=== PATIENT | female | born 1985 | race Two or more races ===

== ENCOUNTER 2023-06-09 14:42 | Outpatient (OUT) | payer BC, OTHER, SELFPAY ==
[2023-06-09 15:50] LABS: Alanine Aminotransferase 73 U/L (14-59); Albumin Globulin Ratio 0.6; Albumin Level 3.5 g/dL (3.4-5.0); Alkaline Phosphatase 181 U/L (46-116); Aspartate Amino Transferase 228 U/L (15-37); Bilirubin Direct 0.1 mg/dL (0.0-0.2); Bilirubin Total 0.4 mg/dL (0.2-1.0); Total Protein 9.5 g/dL (6.4-8.2)
[2023-06-10 06:11] LABS: Hepatitis B Surf Ab Quant 25.4 mIU/mL (Immunity>9.9)
[2023-06-12 13:13] LABS: Hepatitis C Genotype 3 (.)
[2023-06-12 15:13] LABS: Antinuclear Antibodies, IFA Positive (.)
== END 2023-06-09 14:43 | disposition home or self-care (01) ==
LOC: LAB 14:42
PROVIDERS: Visit Provider Nurse Practitioner
DX: B18.2 Chronic viral hepatitis C (principal)
CPT/HCPCS: 36415; 80076; 86038; 86706; 86803; 87522; 87902

== ENCOUNTER 2023-12-05 18:21 | Emergency (ER) | payer BC, OTHER, SELFPAY ==
[2023-12-05] VITALS (31 sets, daily range): BP systolic 97–141; BP diastolic 81–96; PULSE 69–117; RESP 12–31; TEMP 36.8; O2SAT 84–100; BMI 26.3
--- NOTE | 2023-12-05 18:34 | ECG_ITS ---
[facility] Test Date: 2023-12-05 Pat Name: BETSY FERRERA Department: Room: - Gender: Female Sld Educational Aide: : 1985 Requested By: ZACHARY OLSON Order Number: [id number] Reading MD: ZACHARY OLSON Measurements Intervals [place] Rate: 111 P: 81 MI: 134 QRS: 81 QRSD: 74 T: 55 QT: 342 QTc: 407 Interpretive Statements 1120 Sinus tachycardia 9140 abnormal rhythm ECG Compared to ECG 02/06/2018 04:43:05 Sinus rhythm no longer present Electronically Signed On 12-06-2023 6:40:20 EST by ZACHARY OLSON
--- NOTE | 2023-12-05 18:52 | ED_ITS ---
HPI - Abdominal Pain General Chief Complaint: Abdominal Pain Stated Complaint: Abdominal Pain Time Seen by Provider: 12/05/23 18:22 Source: patient Mode of arrival: walk-in History of Present Illness HPI narrative: Patient is a 38-year-old female who presents to the emergency department for the evaluation of diffuse upper abdominal pain for the last several days. She has a history of hep C. She states several months ago she was seen in this emergency department and diagnosed with questionable gallstones. She states she followed up and was told that she does not have gallstones and her pain was likely due to a flareup of her hepatitis C. She does not currently have a GI specialist or liver specialist and takes no medications for her hep C.She has not had any fevers, chills. She reports multiple episodes of vomiting and diarrhea over the last day. She states she believes that her pain begins in the left upper abdomen and radiates across the abdomen to the right upper quadrant. She does have associated back pain as well. She has hepatitis C from a history of IV drug use. Related Data Previous Rx's Medication Instructions Recorded hyoscyamine sulfate 0.125 mg 0.125 mg PO Q6H PRN abdominal pain 12/05/23 tablet (Levsin) #12 tabs ondansetron 4 mg disintegrating 4 mg PO Q6H PRN nausea and 12/05/23 tablet vomiting #12 tabs pantoprazole 40 mg tablet,delayed 40 mg PO DAILY #7 tabs 12/05/23 release (Protonix) sucralfate 1 gram tablet (Carafate) 1 g PO Q6H PRN abdominal pain #12 12/05/23 tabs Allergies Allergy/AdvReac Type Severity Reaction Status Date / Time No Known Drug Allergies Allergy Verified 12/05/23 18:30 Review of Systems ROS Constitutional Denies: fever or chills Ears, nose, mouth, and throat Denies: throat pain or nasal congestion Cardiovascular Denies: chest pain Respiratory Denies: shortness of breath or cough Gastrointestinal Reports: abdominal pain, nausea, vomiting and diarrhea Genitourinary Denies: painful urination Musculoskeletal Denies: back pain Integumentary/Breast Denies: rash Neurological Denies: headache Endocrine Denies: excessive urination Exam Narrative Exam Narrative: Gen.: Awake, alert, in no distress Head: Normocephalic, atraumatic ENT: Moist mucous membranes Respiratory: No respiratory distress, lungs clear bilaterally Cardio: Regular rate and rhythm Gastrointestinal: Abdomen is soft, Diffusely tender to palpation across the upper abdomen with no guarding or rebound Extremities: Moves extremities equally Psych: Normal mood and affect Neuro: No focal neuro deficit Skin: Warm, dry, intact Constitutional Vital Signs, click to edit/add: Last Vital Signs Temp 98.2 F 12/05/23 18:27 Pulse 73 12/05/23 23:01 Resp 17 12/05/23 23:01 BP 119/91 12/05/23 23:01 Pulse Ox 100 12/05/23 23:00 O2 Del Method Room Air 12/05/23 22:33 Course Vital Signs Vital signs: Vital Signs Temperature 98.2 F 12/05/23 18:27 Pulse Rate 117 H 12/05/23 18:27 Respiratory Rate 20 12/05/23 18:27 Blood Pressure 110/88 12/05/23 18:27 Pulse Oximetry 100 12/05/23 18:27 Oxygen Delivery Method Room Air 12/05/23 18:27 Temperature 98.2 F 12/05/23 18:27 Pulse Rate 73 12/05/23 23:01 Respiratory Rate 17 12/05/23 23:01 Blood Pressure 119/91 12/05/23 23:01 Pulse Oximetry 100 12/05/23 23:00 Oxygen Delivery Method Room Air 12/05/23 22:33 MDM - Abdominal Pain MDM Narrative Medical decision making narrative: Patient was a very difficult IV stick, labs and medication administration was delayed as a result. Patient found to have normal white blood cell count, normal bilirubin and lipase. LFTs have decreased from previous and are improved. Patient with no episodes of emesis in the ER and treated with IV fluids, Zofran, Levsin, Protonix. CT was performed without contrast due to size and position of IV Case turned over to attending physician at 2153. Medical Records Attestation: I reviewed the patient's medical records. Lab Data Attestation: I reviewed the patient's lab results. Labs: Lab Results 12/05/23 12/05/23 Range/Units 19:56 23:15 WBC 8.2 (4.0-11.0) 10^3/uL RBC 4.64 (4.20-5.40) 10^6/uL Hgb 11.8 L (12.0-16.0) g/dL Hct 38.3 (36.0-48.0) % MCV 82.5 (81.0-99.0) fL MCH 25.4 L (26.7-34.0) pg MCHC 30.8 (29.9-35.2) g/dL RDW 23.2 H (11.0-15.0) % Plt Count 313 (150-450) 10^3/uL MPV 9.6 (9.5-13.5) fL Neut % (Auto) 64.3 (43.0-75.0) % Lymph % (Auto) 28.2 (20.5-60.0) % [place] % (Auto) 6.9 (1.7-12.0) % Eos % (Auto) 0.2 L (0.9-7.0) % Baso % (Auto) 0.2 (0.2-2.0) % Neut # (Auto) 5.3 (1.4-6.5) 10^3/uL Lymph # (Auto) 2.3 (1.2-3.8) 10^3/uL [place] # (Auto) 0.6 (0.3-0.8) 10^3/uL Eos # (Auto) 0.0 (0.0-0.7) 10^3/uL Baso # (Auto) 0.0 (0.0-0.1) 10^3/uL Abs Immat Gran (auto) 0.02 (0.00-0.03) 10^3/uL Imm/Tot Granulo (auto) 0.2 (0.0-0.5) % Sodium 137 (136-145) mmol/L Potassium 3.5 (3.5-5.1) mmol/L Chloride 100 (98-107) mmol/L Carbon Dioxide 24.4 (21.0-32.0) mmol/L Anion Gap 16.1 BUN 8.0 (7.0-18.0) mg/dL Creatinine 1.47 H (0.55-1.02) mg/dL Est GFR ( Amer) 49 L (>=60) Est GFR (Non-Af Amer) 40 L (>=60) BUN/Creatinine Ratio 5.4 Glucose 101 (74-106) mg/dL Lactate 2.1 H (0.4-2.0) mmol/L Calcium 9.1 (8.5-10.1) mg/dL Total Bilirubin 0.6 (0.2-1.0) mg/dL AST 114 H (15-37) U/L ALT 36 (14-59) U/L Alkaline Phosphatase 163 H (46-116) U/L Troponin I High Sens 9.1 (4.0-51.3) pg/mL Total Protein 9.9 H (6.4-8.2) g/dL Albumin 3.5 (3.4-5.0) g/dL Globulin 6.4 g/dL Albumin/Globulin Ratio 0.5 Lipase 22.0 (16.0-77.0) U/L Serum HCG, Qual Negative (NEGATIVE) Urine Color Dk. yellow (YELLOW) Urine Clarity Clear (CLEAR) Urine pH 5.5 (5.0-9.0) Ur Specific [place] >=1.030 A (1.005-1.025) Urine Protein 30 A (NEG/TRACE) mg/dL Urine Glucose (UA) Negative (NEGATIVE) mg/dL Urine Ketones Trace A (NEGATIVE) mg/dL Urine Occult Blood Negative (NEGATIVE) Urine Nitrite Negative (NEGATIVE) Urine Bilirubin Small A (NEGATIVE) Urine Urobilinogen 0.2 (0.2-1.0) EU/dL Ur Leukocyte Esterase Small A (NEGATIVE) Urine RBC 5-10 A (0-2) #/HPF Urine WBC 10-20 A (NONE SEEN) #/HPF Ur Squamous Epith Cells Many A (NONE/RARE) #/LPF Urine Crystals None seen (None Seen) #/HPF Urine Bacteria Large A (NONE SEEN) #/HPF Urine Casts Seen A (NONE SEEN) #/LPF Hyaline Casts Few Urine Mucus Moderate A (NONE SEEN) Ur Culture Indicated? Yes Imaging Data CT scan - abdomen: Radiologist's impression: ITS Impressions Abdomen/Pelvis CT 12/05/23 19:39 IMPRESSION: 1. Mild amount of scattered liquid stool throughout the colon with minimal left colonic and sigmoid wall thickening. Finding likely reflects underlying diarrhea/colitis. Mild colonic diverticula without diverticulitis. 2. Mild wall thickening of the lower ileum reflecting sequela of prior or recent ileitis. Correlate for any signs and history of inflammatory versus infectious bowel etiology. 3. An enlarging 5.4 cm left adnexal/ovarian low-density cystic mass and a newly developing 5.3 cm right adnexal/ovarian low-density cystic mass. Trace surrounding pelvic free fluid. Recommend pelvic sonogram and/or MRI pelvis with contrast to further evaluate the etiology of these pelvic masses. 4. Small hiatal hernia and mild gastroesophageal junction wall thickening without periesophageal or perigastric extraluminal free fluid/free air. 5. Mild amount of gallbladder biliary sludge and/or small gallstones without hydropic gallbladder or pericholecystic fluid. No peripancreatic inflammatory stranding or fluid collection. 6. Moderate hepatic steatosis. Electronically authenticated by: ALEJANDRO CONTRERAS Date: 12/05/2023 22:00 Discharge Plan Discharge Chief Complaint: Abdominal Pain Clinical Impression: Abdominal pain, Gastroenteritis Patient Disposition: Home, Self-Care Prescriptions / Home Meds: New sucralfate [Carafate] 1 gram tablet 1 g PO Q6H PRN (Reason: abdominal pain) Qty: 12 0RF pantoprazole [Protonix] 40 mg tablet,delayed release (DR/EC) 40 mg PO DAILY Qty: 7 0RF hyoscyamine sulfate [Levsin] 0.125 mg tablet 0.125 mg PO Q6H PRN (Reason: abdominal pain) Qty: 12 0RF ondansetron 4 mg tablet,disintegrating 4 mg PO Q6H PRN (Reason: nausea and vomiting) Qty: 12 0RF Instructions: Gastroenteritis (ED) Additional Instructions: follow up with Dr Boyd in a couple of days for recheck Stand Alone Forms: Portal Instructions Referrals: Rich Boyd MD [Primary Care Provider] - 1 week Discharge Date/Time: 12/06/23 00:03
--- NOTE | 2023-12-05 19:39 | CT_ITS ---
The [address] [address] Patient Name: BETSY FERRERA MRN: [id number] date: 1985 Sex: F Assigned Patient Location: ER Current Patient Location: ED.MAIN Accession/Order Number: [id number] Exam Date: 12/05/2023 20:44 Report Date: 12/05/2023 22:00 At the request of: RAUL SANCHEZ Procedure: CT abdomen pelvis wo con EXAM: CT abdomen pelvis wo con HISTORY: abdominal pain, reports pain across the abdomen radiates into back for 3 days. Also reports vomiting/diarrhea. COMPARISON: Ultrasound abdomen 04/04/2023, CT abdomen pelvis 04/02/2023 TECHNIQUE: Multiple axial views CT abdomen pelvis without IV contrast. Coronal sagittal reformats. FINDINGS: Visualized lung bases and cardiac apex are unremarkable. Small hiatal hernia and mild gastroesophageal junction wall thickening without periesophageal or perigastric extraluminal free fluid/free air. Stomach is underdistended. Moderate hepatic steatosis. Mild amount of gallbladder biliary sludge and/or small gallstones without hydropic gallbladder or pericholecystic fluid. Pancreas, spleen, adrenal glands, kidneys, underdistended urinary bladder, and appendix are unremarkable by noncontrast exam. An enlarging 5.4 cm left adnexal/ovarian low-density cystic mass and a newly developing 5.3 cm right adnexal/ovarian low-density cystic mass (image [id number] series 4). Trace surrounding pelvic free fluid. Uterus is unremarkable by noncontrast CT exam. Mild amount of fluid and foci of air within the vaginal canal. Mild amount of scattered liquid stool throughout the colon with minimal left colonic and sigmoid wall thickening. Mild colonic diverticula. Mild wall thickening of the lower ileum reflecting sequela of prior or recent ileitis. No evidence for small bowel obstruction, pneumatosis, or pneumoperitoneum. No acute bony abnormality. Mild sclerosis at the bilateral sacroiliac joints. CT/CT abdomen pelvis wo con IMPRESSION: 1. Mild amount of scattered liquid stool throughout the colon with minimal left colonic and sigmoid wall thickening. Finding likely reflects underlying diarrhea/colitis. Mild colonic diverticula without diverticulitis. 2. Mild wall thickening of the lower ileum reflecting sequela of prior or recent ileitis. Correlate for any signs and history of inflammatory versus infectious bowel etiology. 3. An enlarging 5.4 cm left adnexal/ovarian low-density cystic mass and a newly developing 5.3 cm right adnexal/ovarian low-density cystic mass. Trace surrounding pelvic free fluid. Recommend pelvic sonogram and/or MRI pelvis with contrast to further evaluate the etiology of these pelvic masses. 4. Small hiatal hernia and mild gastroesophageal junction wall thickening without periesophageal or perigastric extraluminal free fluid/free air. 5. Mild amount of gallbladder biliary sludge and/or small gallstones without hydropic gallbladder or pericholecystic fluid. No peripancreatic inflammatory stranding or fluid collection. 6. Moderate hepatic steatosis. Electronically authenticated by: ALEJANDRO CONTRERAS Date: 12/05/2023 22:00
[2023-12-05] MEDS: 0.9 % SODIUM CHLORIDE 1,000 ML 999 ML IV (19:59)
[2023-12-05] MEDS: HYOSCYAMINE SULFATE 0.125 MG TAB.SUBL SL (20:00)
[2023-12-05] MEDS: ONDANSETRON PF 4 MG/2 ML VIAL IV ×2 (20:00→21:35)
[2023-12-05] MEDS: PANTOPRAZOLE SODIUM 40 MG VIAL IV (20:00)
[2023-12-05 20:18] LABS: Basophils Percent Auto 0.2 % (0.2-2.0); Eosinophils Percent Auto 0.2 % (0.9-7.0); Hematocrit 38.3 % (36.0-48.0); Hemoglobin 11.8 g/dL (12.0-16.0); Immature Granulocytes Abs Auto 0.02 10^3/uL (0.00-0.03); Immature Granulocytes Pct Auto 0.2 % (0.0-0.5); Lymphocytes Absolute Auto 2.3 10^3/uL (1.2-3.8); Lymphocytes Percent Auto 28.2 % (20.5-60.0); Mean Corpuscular HGB Conc 30.8 g/dL (29.9-35.2); Mean Corpuscular Hemoglobin 25.4 pg (26.7-34.0); Mean Corpuscular Volume 82.5 fL (81.0-99.0); Mean Platelet Volume 9.6 fL (9.5-13.5); Monocytes Absolute Auto 0.6 10^3/uL (0.3-0.8); Monocytes Percent Auto 6.9 % (1.7-12.0); Neutrophils Absolute Auto 5.3 10^3/uL (1.4-6.5); Neutrophils Percent Auto 64.3 % (43.0-75.0); Platelet Count 313 10^3/uL (150-450); Red Blood Count 4.64 10^6/uL (4.20-5.40); Red Cell Distribution Width 23.2 % (11.0-15.0); White Blood Count 8.2 10^3/uL (4.0-11.0)
[2023-12-05 20:31] LABS: HCG Qualitative NEGATIVE (NEGATIVE)
[2023-12-05 20:33] LABS: Alanine Aminotransferase 36 U/L (14-59); Albumin Globulin Ratio 0.5; Albumin Level 3.5 g/dL (3.4-5.0); Alkaline Phosphatase 163 U/L (46-116); Anion Gap 16.1; Aspartate Amino Transferase 114 U/L (15-37); BUN Creatinine Ratio 5.4; Bilirubin Total 0.6 mg/dL (0.2-1.0); Calcium 9.1 mg/dL (8.5-10.1); Carbon Dioxide 24.4 mmol/L (21.0-32.0); Chloride 100 mmol/L (98-107); Estimated GFR (African America 49 (>=60); Estimated GFR (Non-African Ame 40 (>=60); Globulin 6.4 g/dL; Glucose 101 mg/dL (74-106); Potassium 3.5 mmol/L (3.5-5.1); Sodium 137 mmol/L (136-145); Total Protein 9.9 g/dL (6.4-8.2)
[2023-12-05 20:37] LABS: Troponin I High Sensitivity 9.1 pg/mL (4.0-51.3)
[2023-12-05 20:41] LABS: Lactate/Lactic Acid 2.1 mmol/L (0.4-2.0)
[2023-12-05 23:29] LABS: Bilirubin Urine SMALL (NEGATIVE); Blood Urine NEGATIVE (NEGATIVE); Clarity Urine CLEAR (CLEAR); Color Urine DK. YELLOW (YELLOW); Glucose Urine UA NEGATIVE (NEGATIVE); Ketones Urine TRACE mg/dL (NEGATIVE); Leukocyte Esterase Urine SMALL (NEGATIVE); Nitrite Urine NEGATIVE (NEGATIVE); Protein Urine 30 mg/dL (NEG/TRACE); Specific Gravity Urine >=1.030 (1.005-1.025); Urobilinogen Urine 0.2 EU/dL (0.2-1.0); pH Urine 5.5 (5.0-9.0)
[2023-12-05 23:30] LABS: Urine Microscopic Indicated YES
[2023-12-05 23:38] LABS: Bacteria Urine LARGE #/HPF (NONE SEEN); Cast Seen? SEEN #/LPF (NONE SEEN); Crystals Seen? None Seen #/HPF (None Seen); Hyaline Casts Urine FEW; Mucus Urine MODERATE (NONE SEEN); Squamous Epithelial Cell Urine MANY #/LPF (NONE/RARE); Urine Culture Indicated YES
== END 2023-12-06 00:03 | disposition home or self-care (01) ==
PROVIDERS: Physician Assistant; Emergency Provider Internal Medicine; PCP Family Medicine
DX: K52.9 Noninfective gastroenteritis and colitis, unspecified (principal); B19.20 Unspecified viral hepatitis C without hepatic coma; R10.10 Upper abdominal pain, unspecified; K57.30 Diverticulosis of large intestine without perforation or abscess without bleeding; K44.9 Diaphragmatic hernia without obstruction or gangrene; K21.9 Gastro-esophageal reflux disease without esophagitis; K76.0 Fatty (change of) liver, not elsewhere classified; N83.202 Unspecified ovarian cyst, left side; N83.201 Unspecified ovarian cyst, right side
CPT/HCPCS: 36415; 74176; 80053; 81001; 83605; 83690; 84484; 84703; 85025; 87086; 87150; 87186; 93005; 96361; 96374; 96375; 96376; 99285; J2405

== ENCOUNTER 2023-12-27 11:54 | Outpatient (OUT) | payer BC, OTHER, SELFPAY ==
--- OUTSIDE RECORDS SUMMARY | 2023-12-27 12:05 | XMS_ITS | CCD ---
Author Name Unknown Address [address] [place] [address] Organization [facility] Care Team Providers Care Process Treater Name Role Phone PHYSICIAN, DEFAULT Unavailable Unavailable PHYSICIAN, DEFAULT Unavailable Unavailable HAILEY LAKE Unavailable Unavailable ZACHARY BOYD Unavailable Unavailable ZACHARY BOYD Unavailable Unavailable YUKO DENTON Unavailable Unavailable NONE, XXXX Primary Care Physician Unavailab MD Zachary Barth Primary Care Provider [phone] MD Danis Garcia Attending Provider Zachary Boyd Primary Care Physician [phone] Zachary Boyd Primary Care Unavailable Danis Garcia Attending Unavailable Danis Garcia Admitting Unavailable VENITA TREVIÑO Admitting Unavailable VENITA TREVIÑO Consulting Unavailable VENITA TREVIÑO Attending Unavailable DR ZACHARY GARAY Primary Care Unavailable ROB LAKHANI Consulting Unavailable MISC, DR MCKEON Admitting Unavailable MISC, DR MCKEON Consulting Unavailable MISC, DR MCKEON Attending Unavailable DR ZACHARY GARAY Primary Care Unavailable NEIL, DR MADDIE Fregoso Consulting Unavailable CLAUDIA TREVIÑOYL Admitting Unavailable VENITA TREVIÑO Attending Unavailable DR ZACHARY GARAY Primary Care Unavailable VENITA TREVIÑO Consulting Unavailable DR ZACHARY GARAY Primary Care Unavailable ELISC, DR MCKEON Admitting Unavailable MISC, DR MCKEON Consulting Unavailable MISC, DR MCKEON Attending Unavailable Zachary Boyd Referring Unavailable Jose STACK Attending Unavailable Danis Garcia Admitting Unavailable Danis Garcia Attending Unavailable Danis Garcia Admitting Unavailable Danis Garcia Attending Unavailable Danis Garcia Admitting Unavailable Danis Garcia Attending Unavailable Jose STACK Attending Unavailable Zachary Boyd Referring Unavailable Medications Current Medications Medication Drug Class(es) Dates Sig (Normalized) Sig (Original) cephalexin 500 mg oral capsule (1 source) Cephalosporin Antibacterial Start: 10-27-2022 Cephalexin Active 500 MG PO October 27, 2022 12:00am cimetidine 300 mg oral tablet (1 source) Histamine-2 Receptor Antagonist Start: 10-27-2022 take 300 mg by mouth four times daily Cimetidine Active 300 MG PO Four times daily October 27, 2022 12:00am ibuprofen 600 mg oral tablet (1 source) Nonsteroidal Anti-inflammatory Drug Start: 12-30-2022 take 1 tablet by mouth every six hours ibuprofen 600 mg Tab 600 mg = 1 tab(s), Oral, q6hr, # 15 tab(s), Refills(s) 0, Pharmacy: [facility]/pharmacy #[id number], 152.4, cm, 12/27/22 16:20:00 EST, Height/Length Dosing, 65, kg, 12/27/22 16:20:00 EST, Weight Dosing Start Date: 12/30/22 Status: Ordered naltrexone 380 mg injection (2 sources) Opioid Antagonist Start: 04-19-2023 Vivitrol 380 mg intramuscular injection, extended release as directed, Refills(s) 0 Start Date: 04/19/23 Status: Ordered Start: 11-27-2017 End: 09-18-2020 Naltrexone Microspheres (Jazzy itrol) 380 mg Suspension,Extended Rel Recon Discontinued 380 MG IM Q28D@0900 November 27, 2017 12:00am September 18, 2020 2:42pm pantoprazole 40 mg delayed release oral tablet (1 source) Proton Pump Inhibitor Start: 04-19-2023 take 1 tablet by mouth once daily Protonix 40 mg Tab-DR 40 mg = 1 tab(s), Oral, Daily, Refills(s) 0 Start Date: 04/19/23 Status: Ordered Completed/Discontinued Medications Medication Drug Class(es) Dates Sig (Normalized) Sig (Original) naproxen 500 mg oral tablet (1 source) Nonsteroidal Anti-inflammatory Drug Start: 12-17-2020 End: 10-27-2022 take 1 tablet by mouth twice daily Naproxen (Naprosyn) 500 mg tablet Discontinued 500 MG PO Twice daily December 17, 2020 6:21pm October 27, 2022 11:45pm penicillin v potassium 500 mg oral tablet (1 source) Start: 12-17-2020 End: 10-27-2022 take 1000 mg by mouth twice daily Penicillin V Potassium Discontinued 1000 MG PO Twice daily 40 December 17, 2020 12:00am October 27, 2022 11:45pm risperiDONE 1 mg oral tablet (1 source) Atypical Antipsychotic Start: 11-27-2017 End: 09-18-2020 take 1 mg by mouth twice daily Risperidone Discontinued 1 MG PO Twice daily 60 November 27, 2017 12:00am September 18, 2020 2:42pm Problems Active Problems Problem Classification Problem Date Documented Date Episodic/Chronic Abdominal pain (3 sources) Unspecified abdominal pain; Translations: [UNSPECIFIED ABDOMINAL PAIN] Onset: 04-01-2023 Episodic Alcohol-related disorders (1 source) Alcohol intoxication; Translations: [Alcohol use, unspecified with intoxication, unspecified] 10-03-2021 Episodic Biliary tract disease (1 source) Calculus of gallbladder without cholecystitis without obstruction; Translations: [CALCU GB W/O CHOLECYST W/O OBST] Onset: 04-04-2023 Episodic Deficiency and other anemia (1 source) Anemia 12-28-2022 Episodic Disorders of teeth and jaw (1 source) Toothache; Translations: [Other specified disorders of teeth and supporting structures] 12-17-2020 Episodic Genitourinary symptoms and ill-defined conditions (1 source) Personal history of urinary (tract) infections; Translations: [PERS HX URINARY TRACT INFECTIONS] Onset: 04-04-2023 Episodic Hepatitis (2 sources) Viral hepatitis C 11-07-2022 Episodic Immunizations and screening for infectious disease (1 source) Nonspecific reaction to tuberculin skin test without active tuberculosis; Translations: [Nonspecific reaction to tuberculin skin test without active tuberculosis] Onset: 06-13-2018 Episodic Mood disorders (1 source) Depressive disorder 04-19-2023 Chronic Nonmalignant breast conditions (1 source) Fibrocystic disease of breast 04-19-2023 Chronic Open wounds of head; neck; and trunk (1 source) Laceration - injury; Translations: [Laceration] 10-03-2021 Episodic Other complications of (1 source) Other specified related conditions, unspecified trimester; Translations: [Other specified related conditions, unspecified trimester] Onset: 10-28-2022 Episodic Other complications of (2 sources) Multigravida of advanced maternal age 1211-07-2022 Episodic Other infections; including parasitic (1 source) Personal history of other infectious and parasitic diseases; Translations: [PERSONAL HX OTH INF AND PARASITIC DZ] Onset: 04-04-2023 Episodic Other injuries and conditions due to external causes (1 source) Closed injury of head; Translations: [Unspecified injury of head, initial encounter] 10-03-2021 Episodic Other upper respiratory infections (1 source) Upper respiratory infection; Translations: [Acute upper respiratory infection, unspecified] 09-18-2020 Episodic Ovarian cyst (1 source) Unspecified ovarian cyst, left side; Translations: [UNSPECIFIED OVARIAN CYST LEFT SIDE] Onset: 04-04-2023 Episodic Schizophrenia and other psychotic disorders (2 sources) Psychotic disorder; Translations: [Unspecified psychosis not due to a substance or known physiological condition] 11-23-2017 Chronic Spondylosis; intervertebral disc disorders; other back problems (1 source) Radiculopathy, cervical region; Translations: [Radiculopathy, cervical region] Onset: 07-30-2018 Episodic Substance-related disorders (3 sources) History of drug abuse; Translations: [Nicotine dependence, cigarettes, uncomplicated] Onset: 04-04-2023 11-07-2022 Chronic Unclassified (1 source) Age mother conceived over 35 12-27-2022 Unclassified (1 source) Body mass index 20-24 - normal 05-16-2023 Unclassified (1 source) Patient encounter status 12-28-2022 Viral infection (3 sources) Viral disease; Translations: [Viral infection, unspecified] 10-11-2020 Episodic Past or Other Problems Problem Classification Problem Date Documented Da te Episodic/Chronic Other complications of (4 sources) Supervision of with history of infertility, unspecified trimester; Translations: [SUP PREG W/HX INFERTILITY UNS TRI] Onset: 05-06-2022 Episodic Other complications of (1 source) Maternal care for other known or suspected poor growth, third trimester, not applicable or unspecified; Translations: [O36.5930] Onset: 12-27-2022 Episodic Unclassified (10 sources) Onset: 06-07-2007 Resolved: 12-27-2022 11-07-2022 Results Test Name Value Interpretation Reference Range Facility Insurance Correspondence Off iceon 07-27-2023 Insurance Correspondence Office [id number] #1.00CD:127 Normal [facility] Facesheeton 05-17-2023 Facesheet [id number] #1.00CD:127 Normal [facility] Ambulatory Visit Summaryon 0 05-16-2023 Ambulatory Visit Summary BETSY FERRERA :1985 Visit Date:05/16/2023 Ambulatory Visit Instructions Your Care Team Attending Physician - BETTYE MATA, Jose Fregoso Primary Care Physician - Wesley MATA, Zachary Referring Physician - Zachary Boyd MD This Is Your Medications List Contact prescribing physician if questions or concerns ibuprofen (ibuprofen 600 mg Tab) naltrexone (Vivitrol 380 mg intramuscular injection, extended release) pantoprazole (Protonix 40 mg Tab-DR) Procedures Performed section, section, section, section, section, Open reversal of tubal ligation, Tubal ligation. Discharge Vitals Heart Rate (Peripheral) 72 Respiratory Rate 16 Blood Pressure 120/80 Height 160 cm Height 63 in Weight 61.8 kg Weight 135.96 lb BMI 24.14 Medications What How Much When Instructions Unchanged ibuprofen (ibuprofen 600 mg Tab) 1 Tablets By Mouth Every 6 hours Contact prescribing physician if questions or concerns Unchanged naltrexone (Vivitrol 380 mg intramuscular injection, extended release) as directed Contact prescribing physician if questions or concerns Unchanged pantoprazole (Protonix 40 mg Tab-DR) 1 Tablets By Mouth Every day Contact prescribing physician if questions or concerns Allergies No Known Allergies Problems Ongoing - Any problem that you are currently receiving treatment for. 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 [facility] Provider Letteron 05-16-2023 Provider Letter May 16, 2023 BETSY [address]ERRERA [address] [place], [place] [address] [address] : 1985 To Whom It May Concern, Please excuse above patient from work 05/15/23 and 05/16/23. Sincerely, Dr. Jose Stack MD General Surgery [facility] Provider Letter May 16, 2023 [place] [address] : 1985 To Whom It May Concern, Please excuse above patient from work 05/15/23 and 05/16/23. Sincerely, Dr. Jose Stack MD General Surgery [facility] RAD - CT Reporton 05-01-2023 RAD - CT Report [id number] #1.00CD:127 Normal [facility] RAD - Ultrasound Reporton RAD - Ultrasound Report [id number] #1.00CD:127 [facility] Consultation Noteon 04-19-20 Consultation Note [id number] #1.00CD:127 [facility] Physician Referralon 023 Physician Referral [id number] #1.00CD:127 Normal [facility] US SINGLE QUAD RT UPPERon US SINGLE QUAD RT UPPER EXAMINATION: US SINGLE QUAD RT UPPER HISTORY: Gallstone ; right upper quadrant pain, epigastric pain COMPARISON: No relevant comparison available. TECHNIQUE: Transabdominal evaluation of the right upper quadrant. FINDINGS: LIVER: Normal size and echotexture. Color Doppler demonstrates patent hepatic veins. PORTAL VEIN: Duplex Doppler demonstrates normal hepatopetal flow pattern with flow velocity averaging 45 cm/s. GALLBLADDER: No visible gallstones, wall thickening, or pericholecystic free fluid. Negative sonographic Amaya's sign. BILIARY: No abnormal dilation or stones. Common bile duct diameter is within normal limits. PANCREASE: No visible mass, abnormal atrophy, or duct dilation. KIDNEY: No hydronephrosis. No visible mass or stones. Size: 10.1 x 4.7 x 4.3 cm IMPRESSION: 1. Normal right upper quadrant ultrasound. Electronically authenticated by: MADDIE TREJO Date: 2023-04-04 10:15 Normal [facility] AMYLASEon 04-02-2023 Amylase [Catalytic activity/Vol] 22 U/L Critically low 25-115 [facility] Comment on above: Performed By: #### L IPA, CMP, SALUD #### [facility] [address] [address] [address] Richy Blankenship CBC AUTO DIFFon 04-02-2023 BASO # 0.0 103/ul Normal 0.0-0.1 [facility] Comment on above: Performed By: #### C BC #### [facility] [address] [address] [address] Richy Blankenship Basophils/100 WBC (Bld) 0.5 % Normal 0.2-2.0 [facility] Comment on above: Performed By: #### C BC #### [facility] [address] [place] [address] Dr. Richy Blankenship EO # 0.1 103/ul Normal 0.0-0.7 [facility] Comment on above: Performed By: #### C BC #### [facility] [address] [address] [address] Richy Blankenship Eosinophils/100 WBC (Bld) 1.2 % Normal 0.9-7.0 [facility] Comment on above: Performed By: #### C BC #### [facility] [address] [address] [address] Richy Blankenship Erythrocyte distribution width (RBC) [Ratio] 17.4 % Critically high 11.0-15.0 [facility] Comment on above: Performed By: #### C BC #### [facility] [address] [address] [address] Richy Blankenship Hematocrit (Bld) [Volume fraction] 37.9 % Normal 36.0-48.0 [facility] Comment on above: Performed By: #### C BC #### [facility] [address] [place] [address] Dr. Richy Blankenship Hemoglobin (Bld) [Mass/Vol] 12.1 g/dL Normal 12.0-16.0 [facility] Comment on above: Performed By: #### C BC #### [facility] [address] [address] [address] Richy Blankenship IG # 0.01 10e3/ul Normal 0.00-0.03 [facility] Comment on above: Performed By: #### C BC #### [facility] [address] [address] [address] Richy Blankenship IG % 0.2 % Normal 0.0-0.5 [facility] Comment on above: Performed By: #### C BC #### [facility] [address] [place] [address] Dr. Richy Blankenship LYMPH # 1.8 103/ul Normal 1.2-3.8 [facility] Comment on above: Performed By: #### C BC #### [facility] [address] [place] [address] Dr. Richy Blankenship Lymphocytes/100 WBC (Bld) 31.0 % Normal 20.5-60.0 [facility] Comment on above: Performed By: #### C BC #### [facility] [address] [place] [address] Dr. Richy Blankenship MANUAL DIFF REQ NO Normal [facility] Comment on above: Performed By: #### C BC #### [facility] [address] [place] [address] Dr. Richy Blankenship MCH (RBC) [Entitic mass] 25.5 pg Critically low 26.7-34.0 [facility] Comment on above: Performed By: #### C BC #### [facility] [address] [place] [address] Dr. Richy Blankenship MCHC (RBC) [Mass/Vol] 31.9 g/dL Normal 29.9-35.2 [facility] Comment on above: Performed By: #### C BC #### [facility] [address] [place] [address] Dr. Richy Blankenship MCV (RBC) [Entitic vol] 80.0 fL Critically low 81.0-99. 0 [facility] Comment on above: Performed By: #### C BC #### [facility] [address] [place] [address] Dr. Richy Blankenship MONO # 0.6 103/ul Normal 0.3-0.8 [facility] Comment on above: Performed By: #### C BC #### [facility] [address] [place] [address] Dr. Richy Blankenship Monocytes/100 WBC (Bld) 10.2 % Normal 1.7-12.0 [facility] Comment on above: Performed By: #### C BC #### [facility] [address] [place] [address] Dr. Richy Blankenship NEUT # 3.3 103/ul Normal 1.4-6.5 [facility] Comment on above: Performed By: #### C BC #### [facility] [address] [place] [address] Dr. Richy Blankenship Neutrophils/100 WBC (Bld) 56.9 % Normal 43.0-75.0 [facility] Comment on above: Performed By: #### C BC #### [facility] [address] [place] [address] Dr. Richy Blankenship Platelet mean volume (Bld) [Entitic vol] 8.4 fL Critically low 9.5-13.5 [facility] Comment on above: Performed By: #### C BC #### [facility] [address] [place] [address] Dr. Richy Blankenship PLT 243 103/ul Normal 150-450 [facility] Comment on above: Performed By: #### C BC #### [facility] [address] [place] [address] Dr. Richy Blankenship RBC 4.74 106/ul Normal 4.20-5.40 [facility] Comment on above: Performed By: #### C BC #### [facility] [address] [place] [address] Dr. Richy Blankenship WBC 5.9 103/ul Normal 4.0-11.0 [facility] Comment on above: Performed By: #### C BC #### [facility] [address] [place] [address] ABD/PELVIS WO CONon 04-02 CT ABD/PELVIS WO CON EXAMINATION: CT ABD/PELVIS WO CON, 04/01/2023 11:06 PM EDT HISTORY: UNSPECIFIED ABDOMINAL PAIN . Upper abdominal pain with emesis, bloating and diarrhea COMPARISON: None TECHNIQUE: CT scan of the abdomen and pelvis was performed without IV contrast. Oral contrast was administered. CT dose reduction technique was used, including Automated Exposure Control. FINDINGS: Limited evaluation of the viscera/organs and vasculature without intravenous contrast. TUBES AND IMPLANTS: None. LOWER CHEST: Unremarkable ABDOMEN and PELVIS ABDOMINAL WALL AND SOFT TISSUES: Unremarkable. BONES: No suspicious lesions. Multilevel degenerative changes of the spine. ARTERIES: Incompletely evaluated. No aortoiliac aneurysm VEINS: Incompletely evaluated. LYMPH NODES: Unremarkable. PERITONEUM/ RETROPERITONEUM: Unremarkable. BOWEL: No small bowel obstruction Mild wall thickening of the rectum APPENDIX: Unremarkable LIVER: No suspicious lesions. GALLBLADDER: Gallstones. Mild wall thickening. No pericholecystic fluid BILE DUCTS: Not dilated SPLEEN: Unremarkable. PANCREAS: Unremarkable ADRENALS: Unremarkable. KIDNEYS/ URETERS: Unremarkable. REPRODUCTIVE ORGANS: Left ovarian cyst measuring 5.3 centimeters URINARY BLADDER: Unremarkable. IMPRESSION: 1. Cholelithiasis with mild gallbladder wall thickening. No pericholecystic fluid. Right upper quadrant ultrasound can be considered for further evaluation as clinically warranted. 2. Left ovarian cyst measuring 5.3 centimeters, likely benign. Follow-up ultrasound as clinically warranted. 3. Mild wall thickening of the rectum suggesting proctitis Electronically authenticated by: ROB LAKHANI Date: 2023-04-02 02:14 Normal [facility] LACTATE/LACTIC ACIDon 2022 Lactate [Moles/Vol] 0.9 mmol/L Normal 0.4-2.0 [facility] Comment on above: Performed By: #### L ACT #### [facility] [address] [place] [address] Dr. Richy Blankenship LIPASEon 04-02-2023 Lipase [Catalytic activity/Vol] 86.0 U/L Normal 73.0-393.0 [facility] Comment on above: Performed By: #### L IPA, CMP, SALUD #### [facility] [address] [place], [place] [id number] Dr. Richy Blankenship PROF 14(COMP METB)on 023 Albumin [Mass/Vol] 3.4 g/dL Normal 3.4-5.0 [facility] Comment on above: Performed By: #### L IPA, CMP, SALUD #### [facility] [address] [address] [address] Richy Blankenship Albumin/Globulin [Mass ratio] 0.6 {ratio} Normal [facility] Comment on above: Performed By: #### L IPA, CMP, SALUD #### [facility] [address] [address] [address] Richy Blankenship ALP [Catalytic activity/Vol] 151 U/L Critically high 46-116 [facility] Comment on above: Performed By: #### L IPA, CMP, SALUD #### [facility] [address] [place] [address] Dr. Richy Blankenship ALT [Catalytic activity/Vol] 49 U/L Normal 14-59 [facility] Comment on above: Performed By: #### L IPA, CMP, SALUD #### [facility] [address] [address] [address] Richy Blankenship Anion gap [Moles/Vol] 13.5 mmol/L Normal [facility] Comment on above: Performed By: #### L IPA, CMP, SALUD #### [facility] [address] [place] [address] Dr. Richy Blankenship AST [Catalytic activity/Vol] 107 U/L Critically high 15-37 [facility] Comment on above: Performed By: #### L IPA, CMP, SALUD #### [facility] [address] [address] [address] Richy Blankenship Bilirubin [Mass/Vol] 0.3 mg/dL Normal 0.2-1.0 [facility] Comment on above: Performed By: #### L IPA, CMP, SALUD #### [facility] [address] [address] [address] Richy Blankenship Calcium [Mass/Vol] 8.9 mg/dL Normal 8.5-10.1 [facility] Comment on above: Performed By: #### L IPA, CMP, SALUD #### [facility] [address] [address] [address] Richy Blankenship Chloride [Moles/Vol] 102 mmol/L Normal 98-107 [facility] Comment on above: Performed By: #### L IPA, CMP, SALUD #### [facility] [address] [address] [address] Richy Blankenship CO2 [Moles/Vol] 22.3 mmol/L Normal 21.0-32.0 [facility] Comment on above: Performed By: #### L IPA, CMP, SALUD #### [facility] [address] [address] [address] Richy Blankenship Creatinine [Mass/Vol] 0.70 mg/dL Normal 0.55-1.02 [facility] Comment on above: Performed By: #### L IPA, CMP, SALUD #### [facility] [address] [address] [address] Richy Blankenship EGFR-AF DJIBOUTIAN >60 Normal >=60 [facility] Comment on above: Performed By: #### L IPA, CMP, SALUD #### [facility] [address] [address] [address] Ricyh Blankenship EGFR-NON AF DJIBOUTIAN >60 Normal >=60 [facility] Comment on above: Performed By: #### L IPA, CMP, SALUD #### [facility] [address] [address] [address] Richy Blankenship Globulin (S) [Mass/Vol] 5.9 g/dL Normal [facility] Comment on above: Performed By: #### L IPA, CMP, SALUD #### [facility] [address] [address] [address] Richy Blankenship Glucose [Mass/Vol] 95 mg/dL Normal 74-106 [facility] Comment on above: Performed By: #### L IPA, CMP, SALUD #### [facility] [address] [address] [address] Richy Blankenship Potassium [Moles/Vol] 2.8 mmol/L Critically low 3.5-5.1 [facility] Comment on above: Result Comment: Re-r an and verified Performed By: #### L IPA, CMP, SALUD #### [facility] [address] [place] [address] Dr. Richy Blankenship Protein [Mass/Vol] 9.3 g/dL Critically high 6.4-8.2 [facility] Comment on above: Performed By: #### L IPA, CMP, SALUD #### [facility] [address] [place] [address] Dr. Richy Blankenship Sodium [Moles/Vol] 133 mmol/L Critically low 136-145 [facility] Comment on above: Performed By: #### L IPA, CMP, SALUD #### [facility] [address] [place] [address] Dr. Richy Blankenship Urea nitrogen [Mass/Vol] 8.0 mg/dL Normal 7.0-18.0 [facility] Comment on above: Performed By: #### L IPA, CMP, SALUD #### [facility] [address] [place] [address] Dr. Richy Blankenship Urea nitrogen/Creatinine [Mass ratio] 11.4 mg/mg Normal [facility] Comment on above: Performed By: #### L IPA, CMP, SALUD #### [facility] [address] [place] [address] Dr. Richy Blankenship Coding Summary.on 03-01-2023 Coding Summary. [id number] [id number] lWS2BKUiVhSyhvfyk3et mXt2PGjdCvxcWiSa KHZskI17SJF5oA75Bv50 nCHdpDKuu0ggvFd8CzTu OHPxZEN3tVkvFHsdk0Xk BLSuT43fhRBct0W6 IGNvbGxhcHNlOyBlbXB0 vC6hSDffbtzsi3dmtafo Cav0mn41mOBaz7N8yYB7 O5FmegH7WOMqfPYq XornzZGDuL6vbtzdk0qs cnvnBwKmPQAcVBi8NAg4 BSPrmOlaNlScJR41NPN7 URAdzoHcT7CrPRGs bRrzVeV4a6B1Sp1CT6ZP JczcH1KXKPNUUIzxfDD+ NQ98zo02G4EmDxhuSaa2 YPDhYPB6gTK2jP3e EZVuDRjss2U1eDF9K2Ea zgFlch3lb4uhFKHdYVmq B40vkTBpt7U1XQXprWO8 GNBfwEvpVtLhbP94 Oyc+DOMxrGouv7ChNfld w6rgb4qvvGg5YnrmKVQj cqKuwPobMLH1w4QoDu6x JZXujOK3iZO0xW9k NoJuJrZ5DRlyB451NcUw vBMmFtaxS08uE1RjfZQ+ KQIaFtt1TZMgyMpvXS5p B8CnFITzxqaehNCe pNteCL4aHRQqjhkqTKPm gK9eQEClL5e2OgPzYkK8 VNoyO7DcZGKywelpPh15 aL6vAqPbRzH0JKqw W9KmvoE8FJMadSNpKOvb DQL0T97cg2I8RKDuGGFu JEX9rJI8hN2mcDemuzwz bGVmdDsgdmVydGlj MUlaRQdkV715SEOlkXzh PkNvZGluZyBEYXRlOiAg MDQvMTIvMjAyMzwvdGQ+ LUXaYRM3dMgoDVSu pZOiCVwiDz9irVlulRuz NG7mSAOwcvneIIOmxE6z GNDddLNeyGfxFN2yERIr dhwsv329PcZrUHN8 YGYcvRGmN8VzoF9vDvMk ILIpWRAzN4BaeOOnVQmk H191XDndIzB0OLKwywZi A9QvEWAxgUmhGnA8 t8D3Lj6Er9GcxgjoW2Cd xMUsKxRoJvhpHUu3R0Rs PjwvdHI+YM82SPFfEU69 YKo6CWM1sZrmKKkj CPHyA3NbgW5tIjNoUJMz ZGRkOyc+PHRhYmxlIHdp ZHRoPScxMDAlJyBzdHls LL4dEk4yMDNhIZSg lAxosHUqQnEqe1eiTORo ZBhnPD1nhKbgP7UidNN9 ETPke1k6Yi57B85cF0Dr dXA+CHIekNE2eRD6 qO0rWfSkZiO2UDnqI407 GqPniUTvAndtc7ldj7fv lSx8QrR4SFMkpyXwtWsa ICM3j9UsOf67F04h IHdpZHRoPSIxNSUiIHZh qXguna2bkJ3eWi0+PGNv pRO3vFW0qX6dHmWzCeC0 YJlrA231CyCsvDVu Pnekf6kkb1edbVn1DcLm UFUpdrPcgKplBOY3w8Wd Ma47C6TqhLhhm1HtEkp2 dr24fJIrk3F2lIM6 N8ReKELivtvhqSSkxMwx EL0hBWDeztcyCHSyfV4r PYNxE2o0JzYaDaM9KKkd X0AjxoJ5YNOnyQUv MVTdyPZTaG6irrgjc1zz upjrDqNpALJaKVf6EUv4 EOTiuFpcHkPwOUP1IdN1 YUY0lORcxK7elNva mifqfL3xGvo+URD6zXGh nXKHEQ9iEhpjjXV+PHRk RKP4rNbsORveVQUmmI7r FWEoH2m3FtIwRiO9 XDufV9NxsnJ8XHVcwTYx VBIyyBFGdM3dcxnua0uo sosnYrJaRHCdHVr5BGa0 LWFsaWduOiBsZWZ0 GeG7KZH0uVZmqO1msCsx gzeoqN4kFvt+QmlydGgg QET2YKg1W0GwVng3IAAx eYcxNW3opKSpUBbv Ps9iiAdsdBovKY9aCWLx rsige625LtYtj1xlFWBz yYGoHCzuRNZ7J71ct1D9 LOSkOZUuZAA1cCP4 sD6wvVzopkxwdPJodYuh fqUpnYfuPXwsSYheV205 RPEhpTmuBcJeSWy6B2Ao Uve5YVSyyBeuZZ6v vQJoSAbjJu8qsBwvwJoa KS8kXICiwhalo856XkOd i1dbODVdtJXhFEbxSNM3 J64yg3U5POKcLEFc WSS2bMC6kJ1xfAdqtrwx bGVmdDsgdmVydGljYWwt ATqdR596BDPkhEnaYoQz rMv5Q7HjTiq4RIKy oAvySZ5uvMLsSRmyLc7c yKqgxEelGG9sUMTymhqr g270AxVnl9knUEPwqANl DYnvPTG9Q30gy4C3 OLEpVCVwBSO5wXB1qA8t bGlnbjogbGVmdDsgdmVy sBbwWTjeCLlcH909RREk cDsnPlBhdGllbnQg DOftLNn7N0YbTzswnQA+ VJ32JQTaCL83tBQjdMAp o2remJy7YtLbWETjCJV6 zSwcESxge9CeYKLa N86ziMZtg2U3KYOdbIxb sRUzFjIsjYE6hB1eWBrq soyye5ibijmkKczeq9xb bk44vC70H82hBSol ZHRoPSIzMCUiIHZhbGln wc5owF9eRm3+PGNvbCB3 oIZ5oV6yFBHxLfY0RZja D784BnNsrRGnIuao l1dvx6dnuMz2LjU7SBCu imTfmXphICY5r5DkQx78 M45wFAizLSMgNHGyFCMh HWJxfDoepc1qfJ4w Ii8+OICloLO5dWF3gE5u GzIiZzU2SEjmW159XpLu rBIzDyexW16oT3BdvDA+ NLYtRgz8PDBxoTdv UN5lgSOhEOguRa5dBHK6 LbNyNlFdODmjI3MqENOy mbuhdibbcNK7JFGfRSFg vB52Iw9kbDzoLEEd aOVGsO0tccrhs1suypet GoJnXABcIYp8TPa1VGLs bPqgCjCyEGT9VtB9RMG9 eANplF1fiSzwyggi fI1aH8QnYVAfhgovZt50 nS2kYqZrYxC4NAqwNza+ FXQWAOtkMNYNVFyVBD22 PE34kMJoo7C9uVA3 L2BzPSHoajnfubtfwSV4 MAYaZYXneR15bCQrRYri Gz4nw8Y1t430YDRwCGQx oB82Xs5ztNtePKZt iROHkY2zcvuxa3ivlfzx IoQwEOTdODp1ROn1IJEl eDoaYhEzJWD2SxM4ATU0 hHUdgM8xbQuantww gH8jSjv+MTIvMTEvMTk4 NzwvdGQ+RXBhTPF9fRyz VEgpFDSauH1wJEZhP3b2 JdSbRrH8QGzmO8Il QTSfxqnjTx29rT1nOlZh TqM8HUnzP7FbxtW3DBRu jIPgMHkgLFI3E76yf2R1 KIVuUCOjHHX6dDD5 jF5wqUfszgxiuWIhcOvk snBhiQpsALvzONamU802 QFZmqZsjFsY6RKwfHSNw ZK84JE42eAUku8F0 lVK1K1AiUUJxxjtadrzc lWE0AHCjFDFnbD22vJCn QLopYh3qr8A2j799XPMp JJLujO48Rm7aaQki SDFdqQWSaF5mrbvli7dx dhqkIvRdTNCmIUi5PJy0 SFSmzBfxFeFjWSE4ShI3 CRF7kQJcuC8oaWnm kmuohE3xEzi+RmVtYWxl WY08KX08sGEuj0P8aCO1 V8RnKFOwvvvlyeccmAR2 TYJpTQGwtA31bGHx CKuxWy2fk2N3j879KYYq NLExyS82Yp7enPjgOIEm eSFVlP7bucqtv0fkxpyy CwRsCSDjBOo6ARw2 UVBjxYcsPgFvBPB0MqC7 EWI8uXHfiJ4pkJeezcmf eE6nPso+H3Z4oJK9xETr dDwvdGQ+MX92zb11 D7TzIjniHqg5MHJtORE0 oFQ9gU8dKGIiUAtze3R0 aOB7K1PoybDhfk3na7so GGFoLLnjN41pdVNy p3H5OLUaeGV1STDciGtg QcCmhQ78Prv+PGNvbGdy d7YdYmmzg3flf9ckeRe3 IjMwJSIgdmFsaWdu SIL8c7ToTy36E24kDQci ZHRoPSIzMCUiIHZhbGln th4ttV7uFm6+PGNvbCB3 lNE6iS0lNnJdZiC6 EAaiT997CzAtsRSkXwys n3dix2fsjHz0GwPrYOOz rgQgmTfaIVT9o3BdAk73 E4UfaVbaz9XlHga0 vi90sBKem3L4mLD4W9Zx MMApgllwpFVqzLswFA0t FWFqgfsvYJWqdL1yBFUo Y8a0WsKmGsI2WKyr A1KwsgL3GBEouGXoHJPx sQZLtL7bmbzcz1uhnmbd RoIiBGJwOLc9ZWv4AJZw nLfgMdHrBFE2BmT4 SWG8gONurA9hbAimturg iP3hGrf+EYu6s7cepJTf TL8otFH6RC46VN57xZMu c3N3hDF0L1GyNUSn ufmpltjgiWF8EEPsOVIt oR62Uj8bhYsbWg0lHGWy RUU7OJHtgKEjJ7EaiI5s EfImMRUiYBGoI1Xz uXDpRHzbR062PMsqDnH9 KAEfwfKgY9LvAJNunYoa OsL3g4Z5Pi0JXO44AG74 MG59xAAui4D7oSE4 S9WmRASpnzlguyearCY7 GKUzSEKwnQ01Rk8kqTtt Jv8nCZSzDFC0IFIhnAJl X5BgnE5pLjKrKXRe XOArF8MppAEpYXkvX057 DKlqKkA8QNAkslFmR6Fa SVAbcQroEaF7k6E5Mz5Z Yi06VP72IC62lQMf d7V6qDK0O2XoYBOwygse bqtdoKO4SXXhUMQaxV21 Bh8jzHbuKl7aVHZeALT4 ZZQtxLUfC7RfsR8z JmNcXRZeGIUsW2RduKUa SHfpV751NLueSuL8SQSt chYqE5UrPILbqJazUjY8 i4A3Kg8OGNjoeag4 Y7LoWneedIQ+PK21WAUh YF32eTOcnJTkz3dglEf1 GnXiGJYgWKW8lGmwJQsq t1IpEUQyJ55zvWRr j9J0OSJt (more content not included)... [facility] Nursing Assessmenton 023 Nursing Assessment [id number] 5#1.00CD:127 [facility] Coding Summary.on 01-02-2023 Coding Summary. [id number] Gh0bWw+PGhlYWQ+PE1FV VEqB29tkOCmzS6DN6eVL W2BQBNXRJNCQC0FQW1ou FN0CYxcC3ScyvIx RaraiGSrXO86HZc3PUF4 kWpySQmmpM3joJMmI9t3 OzIdFU18kN62HLkpKULk KmI8JsYulxqfqQDl M2aaFvMgpLEbWok+PHRh YmxlIHdpZHRoPScxMDAl AvMyvIgyUR2fBk0aNTZt LWNvbGxhcHNlOiBj t1yqVAXdCDxmII4jdJnh H7SuoQV8EEZpy1r3Ws20 dHI+EKMcKOA7cHfjWApp t258KaTyn1guVZU9 aWFnUVhuXFD0R68pw6Z7 LCQpYAEpOVI7rFM7lI6k pUbhbqqyF9TpyJRqZoP9 SFP3jQCcfK1bhTum vasshG5kOnr+H18BGI5Q WDYFEY6IUba5B8SzNqrp dHI+LV49TMTdTV59qBZz bXUtp8ztsZy0DvFk GWToSPQ3oUvnJHnnp7Pa ELYxI01vaFLvh4N2UPWc sXeipRCnLfBsjIP8mB0n UGmjaadbz8fxfvyp Tvkyy2onwv83aT49K00v JFxnGRAiYAR6VBWrNMNw cGlczz8owQ4yIo9+IDxj m8aby0lazWs7XeWd KTSjswFybSikDJV9y0Ee Kd41W6GfbXsxp9AmVhl3 gb98lLThu4C8rEQ4ZJjh ZUWzmE6bREoaSyX5 QHFaXkRlyH50qOGqMWyt Wm6woRzkfTboLK3cJPRb mepcAIWuoH6rSTIfrNMs fLknIP3cTAGwmouw y102YaYbBWK9HBWdaOIf B5DudW4tKgIvZXZeMKUn K7EjpKJuKDzaP354RHav QxA7DMXmoaVjQ7Ex WHEneCywVwE2c3X9Ry3I e7QpnithTSD0EQrsCAQc MdIaQwEwUjM7K7UnDfe5 RUMrrVxgZK2wT7Ki RKVonttyqjrvqJX5WGKw VJUggE49gULmGSrhIk6o n0K9f924XUCrJSXxtO70 Bz5yyLziCHFtuOZT qS9aenepq2axvzanDkXf KGLoMMh6XLv5TWNizWls BxNfTGB2ZyG6TXU2lJYr bJ0ngEepzrxbeO6m Oyc+O84ywG5cMHZ2SGP5 mzvqZRWxalMkZP56KL23 F8SvZwklgWVuaGG+PGRp okIymOeuNW8hIvRs q1jpb3TvDGjkL9MpGDPr MToqRby8LZWaPGB9iRL9 nP3yUDJsVBlwb6E0hZW8 D1SwkhUvxq0ow8to PXEgQVkhZ12ukEJzq9K5 CLRxuBU2WRRzzHinReCh dI06Oge+SRCqwZqxv4Zn Hvaqt7gqj1gjeGk0 IjMwJSIgdmFsaWduPSJ0 f4MvMk70E29tFOdaCRDo SVMuBSRfAMVjiJfkwc9a mL3pUi9+PGNvbCB3 pNM6aI0oCTVkCrB6ZNyp D348QjHhwQPeFdfda0se w3adtCn8CdAuALJxhoSx xBieEGG0p0AsCw78 U83eLNxbKJJeQLIfBVFm QGPcgLfdro2lsB6nNl3+ XJ6qj7buhi03oY54yQI+ RFSzKGP5wIplGSjk BNPrlP6qHVqqWbV8QPUo BcPnhN78iTAvONlmHs3g pYvubZcvDD2bEANnuagt u046RoUay8beQDYx jHXcADfvEIS8L57su6I6 FMHhIVKsIHJ1rTB0sD6q bGlnbjogbGVmdDsgdmVy pYxiLCzsEJkyY777 IHRvcDsnPlBhdGllbnQg LnJjELp3O8YpRvk5OXLf nKloNJ2pdHCfYIqvTs1y qAypcEyqSF2eCLNf dakhn910DyHcw3hiKRHv bSYwJRkbEME5A64bz0O5 TCLtQCLcYPV0bLX6dC5w bGlnbjogbGVmdDsg rkDmwEqqPCmdKHqaJ585 IHRvcDsnPkJpcnRoIERh nHW6OV35QE73gUNqt6G8 wFZ9X2LuDSXfxxow usncgDC6EFDrDCUqjG56 Fq5deWkzBp4jUDAkCAV4 AMKvzPQjX5CxcY7oEqEz DNQtFTEbN9DqiCXp ZBgrA323NVdnCaH6WOLp ygBwC5KoBQSlkYrnKgY1 j8U9Hj6GR4Q0XC61MV89 cTKpi4W9oIW8S2Lr JQTpgfdbehzxsHW3VJDm YHRrrB37Dn9kxWhyBs5i ZMJnUYV0LCDnfCWfM0Xq xL2cCkZtRCXdQREs E2ClmIDwVGkkS332LEcb JaF7HETuhqTbX1TsTYIc kJklGgH1f2X6Bz6FEVy6 BM92MX73eXVgn6Q5 kTS5G1WfXBWnjmnuypuf rJS3TTShTBGzxB40Mk0b aGtkHm1wSTVcJKA7UWPy wYCqU5NqjZ6wMiPe NRFaFLFnX8GsoRMzUGsa F642FGjaCpJ3HNWbowWk T7ErXZIxpJpiLfN8d1Y4 Sd5LWQLiCO07EHK7 kDS3UE98KK36N1NeVole dGFibGU+PHRhYmxlIHdp ZHRoPScxMDAlJyBzdHls TV0zJr5yLVUxNWHu sHzwtVTySjTfp4sxMDRo OKtpAP3axWbkP4UlqTA2 UNPmt8j4Zo74C90yJ7Hu dXA+SCRcmXH7vWA2 yC6tCrTkVkL2DQxrU269 KgVqqGBeOqjrj0lrs5ch pBp8MhQ0OXLhryPkoJaa TQF9r6DpLd98J41p IHdpZHRoPSIxNSUiIHZh hHgpru0nwM0xYz3+PGNv eGP1oOG2oV4wRnOvJoQ2 WHajR275RjCgoIEl Oyskv0cut9sdyQi4DmPj KNEhinXwtClmXFZ0g2Gf Rb63P5ApaTlul8IxJcd6 lf15bTZko4U7gME9 X3CrFZDbplwbxHNknHor PR8rQZYvvmrxLAKxhR7i NYShO9c2DsOeOtA8OGoz P7RkmmO1CAKfuRIb IZjcWQD8S26uh9K1EOZi VIHrPXE6xTP7fN1wyTlf bjogbGVmdDsgdmVydGlj ECieSRceC179GZPb aSwbVUJkzM0jDVGgzWNy mQycIL1yLTWbaiouOqPU TkEsIFBBTUVMQTwvdGQ+ KJYtQZR9pOvpAIlr MNAptS1qPDOmV4z5ZvYp MqA3BVxfN1RrZWJmusiy Zd34rC7zVnPgKsC8QKwe J9LjinO1ZFGbeMZr JGbuFMH2D31jk4V0QTOm OECpNGE9wDX2pU7rkJiz bjogbGVmdDsgdmVydGlj LNchNUotD805WXNz iPqzAyDrFsAiHeC5VLz1 Y2QkIqa9DZLyePtlDH0i uARiDQupSm4ngEgutZgv BJ9gMAEvpcjmOSHm vA7gNVCdtWKjxIlcDS1n KUCrzppjf196JuReCYK0 YYFgbEJfR3FihU3fZvNn FCEhRXUnS2XbcUPc VElmP421TKtgSvR3PIDt nbNxY2LeLQVaeClfWlN7 y8A3Wr8iDJHKJNDtskpt dGQ+EWOpTCQ1xNei HRnuXRXwoH8hPJBzG2c8 KdPlKcR6FEbcP7OlWGVr mqyjTh82qY2dCdBgPdZ0 DVqsB3AphxB5KFTq jCHfXIazHAF9U33ry1R4 FZOiXWNuEYA8aTS4wF3w bGlnbjogbGVmdDsgdmVy fDcgHBkjGUsoU536 IHRvcDsnPkZlbWFsZTwv dGQ+WFLvLDS2zLlpUAwj CUIhmO8sMIZqQ2c7LfPx ThH0GBvgZ3SgLNVd rsrlLz36fZ2rMzYzGhO5 HYbfX9YivjE5GSPnkWQd INrdKVA3D25ba2W6WCHg TLRiROJ4gYE5aJ5r bGlnbjogbGVmdDsgdmVy uTuwFApjSOecT059RUHj bTiiXooshNW3cNRjhMny dGQ+WO68lo61A2Sz DkorMhu9DQFoVCJ5qBX4 qL2uKGQwWFstr5O1zYQ1 V8TmtaAboo4vm1onBHDw AMlsT01jwLUne0S3 SPOgmJQ6GNFfcGiuGyTo kM22Gtv+PYRfvLnac3Uv Nvhku8jvf5eefGl4ZtGb JSIgdmFsaWduPSJ0 f9KjIj83Y20vMXsdBGIx ATPsHOLlVDOkrLdyrt5t hF8wHy6+HFZsdXA1yKL9 zE8tMzIzFnH3WUti Z607AoLavNEcFytyb0zn b4xjuAy8AqHaZSAyllKj vAxnCAY0m9KuGv48B6Gg gSmry8RpCau5hn70 wOSiq2Y8sHM4N7RyJKGe seabiGRgtRfmUR4nTMQa wtjzFZHnfD6uQGWhW9s3 JyMeExC1AQfeN9Jt emD0TNYudGEnMXPynDNB bP3myncny2bawhboVeFu FNCzZEv9IEr5EKHylIqm LkIxBLD7LsG4MBE6 tLUeuB3lxInkvwoxvZ1n Oyc+DSs1t9qnjKCaSW0f nIN8WG65IH62nNDgd3B1 iXG8P9QfGMApefao gylhdMB0UQNpFHRwiB60 Bx5phUxtLi7pEUZbXWQ3 ICZapUYsA2KcfC5aArSn WTSdWDKhO8FghHJb CLssB102HImsXgO8HAXd lgIpK7OjOVAfxVmpKbB9 q8X4Ij2TLJ56KZ01TQ07 cUBsf3Y5kUP6U8Ls JBIradcuzwlbiLC3NCAm ISUigQ72Sa7uhElzDe5s WIKjXWM4XMZjtPUuT7Iq qE5eRsKfYETxPJPc N2BhsTLgXTzlM653XFad JwU0ULLuleYhE6NmXPWv sGvvAqO4p4A1Jg3CBo95 UQ28CO06mNXbj1Z4 rYT9O3PzPFZnfnmsshqt yYN8THFdMFUfdL61Kw8v bXpzKn3bQYQuJED3LYAo qWMzD3CqdG0cJsMw AUOsKAWmS4BurTBeQKoj R352RCgcTxM8QSAdiiGq O0GiWADlcFriVpW5t6N8 Lg2UIVfwqdu7R0Pw PjwvdHI+DY04ANAnHT59 dRGalPUqf5wzzDa7DqNe MRYxSWA8oEsoTKmtf9Ws LOMxR60fkDLtw0D6 IGNv (more content not included)... [facility] IntraOperative Documentson 0 01-02-2023 IntraOperative Documents [id number] [facility] Progress Note-Physicianon Progress Note-Physician Patient: BETSY FERRERA Age: 37 years Sex: Female : 1985 Associated Diagnoses: None Author: Danis Walden Jr, DO Postoperative Information Postoperative disposition: Postoperative disposition: To PACU. Optimetrix number: Optimetrix number [id number]. Anesthetic utilized: General. Health Status Allergies: Allergic Reactions (Selected) No Known Allergies Physical Examination Vital Signs 12/28/2022 16:04 EST Heart Rate Monitored 83 bpm Systolic Blood Pressure 141 mmHg HI Diastolic Blood Pressure 89 mmHg Mean Arterial Pressure, Monitered 106 mmHg 12/28/2022 16:04 EST Respiratory Rate 18 br/min Mean Arterial Pressure, Cuff 106 mmHg Hourly Rounding Yes 12/28/2022 16:03 EST Temperature Axillary 36.7 DegC 12/28/2022 15:10 EST Hourly Rounding Yes 12/28/2022 14:00 EST Hourly Rounding Yes 12/28/2022 13:30 EST Hourly Rounding Yes 12/28/2022 12:30 EST Hourly Rounding Yes 12/28/2022 11:20 EST Hourly Rounding Yes 12/28/2022 10:30 EST Hourly Rounding Yes 12/28/2022 9:40 EST Hourly Rounding Yes 12/28/2022 8:30 EST Hourly Rounding Yes 12/28/2022 7:30 EST Temperature Oral 36.9 DegC Heart Rate Monitored 101 bpm HI Respiratory Rate 18 br/min Systolic Blood Pressure 120 mmHg Diastolic Blood Pressure 77 mmHg Mean Arterial Pressure, Cuff 91 mmHg Hourly Rounding Yes (Modified) Pain Assessment: Controlled. General: Awake, Alert, Appropriate. Respiratory: Adequate air exchange. Cardiovascular: Stable, Normal peripheral perfusion. Neurological: Normal sensory function, Normal motor function. Assessment Anesthetic outcome No anesthetic complications noted. Adequate pain relief. able to void without difficulty, able to ambulate with assist, tolerating PO intake, no N/V. Review / Management Condition: Stable. Plan Transfer/Discharge: Transfer/Discharge Discharge when meets criteria ( From PACU to floor ). [facility] Comment on above: Result Comment: Elec tronically Signed By: aDnis Walden Jr, DO\.br\Date and Time Signed: 01/02/23 09:32 EST Progress Note-Physician Patient: BETSY FERRERA Age: 37 years Sex: Female : 1985 Associated Diagnoses: None Author: Danis Walden Jr, DO Preoperative Information Time patient last ate or drank:=== (npo 8 hours) Anesthesia history: Patient history: No prior anesthesia problems. Re-evaluation prior to induction: Completed, Initial evaluation reviewed. Review of Systems Respiratory: No shortness of breath. Cardiovascular: No chest pain. Hematology/Lymphatic s: No bruising tendency, No bleeding tendency. Health Status Allergies: Allergic Reactions (All) No Known Allergies Current medications: (Selected) Inpatient Medications Ordered Lactated Ringers IV Diane 1000 mL 1,000 mL: 1,000 mL, IV, 150 mL/hr, Routine, Start date 12/27/22 15:40:00 EST, 6.7 hour(s), Total volume (mL): 1,000 cefazolin additive + Sodium Chloride 0.9% intravenous solution 50 mL: 2 gram = 1 EA, Powder-Inj, IV Piggyback, PREOP, Routine, Start date 12/27/22 15:37:00 EST, 100 mL/hr, Infuse over 30 minute(s) famotidine 10 mg/mL IV Diane: 20 mg = 2 mL, Soln-IV, IV Push, Once, Stop date 12/27/22 16:00:00 EST, Routine, Start date 12/27/22 16:00:00 EST, 12/27/22 15:40:00 EST metoclopramide 5 mg/mL Inj: 10 mg = 2 mL, Injection, IV Push, Once, Stop date 12/27/22 16:00:00 EST, Routine, Start date 12/27/22 16:00:00 EST, 12/27/22 15:40:00 EST penicillin G potassium additive + Sodium Chloride 0.9% intravenous solution 50 mL: 2.5 Million_Units = 0.5 bottle(s), IV Piggyback, q4hr for 10 day(s), Stop date 01/06/23 15:59:00 EST, Routine, Start date 12/27/22 16:00:00 EST, 100 mL/hr, Infuse over 30 minute(s), 12/27/22 15:38:00 EST Documented Medications Documented Multivitamins: 1 tab(s), Oral, Daily, Refill(s) 0 Problem list: All Problems Age mother conceived over 35 / Patient Care / Confirmed History of heroin use / SNOMED CT 6422984962 / Confirmed History of reversal of tubal ligation / SNOMED CT 8301835156 / Confirmed HPV in female / SNOMED CT 119374080 / Confirmed Advanced maternal age in multigravida / SNOMED CT 7724302061 / Confirmed / SNOMED CT 436153898 / Confirmed Hepatitis C / SNOMED CT 37696985 / Confirmed Resolved: / SNOMED CT 401614178 Resolved: / SNOMED CT 738088862 Resolved: / SNOMED CT 566130912 Resolved: / SNOMED CT 861851463 Histories Past Medical History: Resolved ([id number]): Onset on 01/22/2013 at 27 years. Resolved on 10/22/2013 at 27 years. ([id number]): Onset on 02/17/2011 at 25 years. Resolved on 11/17/2011 at 26 years. ([id number]): Onset on 08/04/2008 at 22 years. Resolved on 05/04/2009 at 23 years. ([id number]): Onset on 06/07/2007 at 21 years. Resolved on 03/06/2008 at 22 years. Family History: Entire family history is negative. Procedure history: No active procedure history items have been selected or recorded. Social History Social & Psychosocial Habits Alcohol 12/27/2022 Risk Assessment: Denies Alcohol Use Substance Abuse 12/27/2022 Risk Assessment: Denies Substance Abuse . Physical Examination Vital Signs 12/27/2022 15:30 EST Peripheral Pulse Rate 108 bpm HI Respiratory Rate 20 br/min Systolic Blood Pressure 129 mmHg Diastolic Blood Pressure 88 mmHg Mean Arterial Pressure, Cuff 102 mmHg Measurements from flowsheet : Measurements 12/27/2022 15:30 EST Height/Length Measured 152.4 cm Height/Length Measured 152.4 cm Height/Length Dosing 152.4 cm Weight Dosing 65.0 kg Body Mass Index Measured 28.37 kg/m2 Body Mass Index Measured 28.37 kg/m2 Weight Measured 65.9 kg Weight Measured 65.9 kg Weight Measured 65 kg Respiratory: Lungs are clear to auscultation. Cardiovascular: Normal rate, Regular rhythm. Review / Management Results review Interpretation of Outside Results Chest x-ray results Radiology results ECG interpretation Condition Plan [place] [employer]hesi[employer] (ASA) physical status classification: Class III, E. Anesthetic Preoperative Plan Anesthesia: Regional Spinal. Anesthetic plan, risks, benefits, and alternatives discussed with the patient and/or family. Risks discussed: nausea, vomiting, headache, sore throat, dental injury, serious complications. Patient verbalized understanding. Communication: face to face with (patient 5 minutes, Pt educated on the importance of smoking cessation.). [facility] Comment on above: Result Comment: Elec tronically Signed By: Danis Walden Jr, DO\.br\Date and Time Signed: 01/02/23 07:04 EST Discharge Instructionson Discharge Instructions [id number] [facility] Inpatient Clinical Summaryon 12-31-2022 Inpatient Clinical Summary [place] [id number] Clinical Summary Person Information Name: BETSY FERRERA/[facility] Age: 37 Years : 1985 Sex: Female PCP: Zachary Boyd MD Marital Status: Single Phone: Race: Other Race Ethnicity: or Language: Thai Visit Id: Visit Reason: preg Speciality: Acuity: 3 PO Enc Type: Inpatient Med Service: Obstetrics Arrival: 12/27/2022 14:43:07 Discharge: 12/30/2022 23:06:47 Dispo Type: Home (Routine DC) Address: [address] [place] [id number] Provider Notes: Diagnosis: Advanced maternal age in multigravida; Hepatitis C; History of heroin use; History of reversal of tubal ligation; Intrauterine growth restriction (IUGR), delivered, current hospitalization; S/P repeat low transverse Problems Active HPV in female History of reversal of tubal ligation History of heroin use Advanced maternal age in multigravida Hepatitis C Smoking Status: Current vaping or e-cigarette use Functional Status: Sensory Deficits: History of Falls: Mobility Assistance Prior to Admission: Independent ADLs: Independent Current Level of Assistance for Self-Care/Mobility: Cognitive Status: Allergies No Known Allergies Laboratory or Other Results This Visit (last charted value for your 12/27/2022 visit) Hematology 12/28/2022 5:54 AM Hypochromasia: Present RBC Morph: See Morphology Polychromasia: Present Ovalocytes: Present Anisocytosis: Present Microcyte: Present Elliptocytes: Present Basophil Auto: 1.1 % -- Normal range between ( 0.0 and 2.0 ) Eos Auto: 0.2 % -- Normal range between ( 0.0 and 8.0 ) Hct: 20.3 % -- Normal range between ( 34.0 and 46.0 ) HGB: 6.5 gm/dL -- Normal range between ( 12.0 and 16.0 ) Lymph Auto: 16.6 % -- Normal range between ( 14.0 and 50.0 ) RBC: 3.0 E12/L -- Normal range between ( 4.3 and 5.9 ) RDW: 23.5 % -- Normal range between ( 10.9 and 14.2 ) MCH: 21.8 pg -- Normal range between ( 27.0 and 34.0 ) MCHC: 31.8 gm/dL -- Normal range between ( 31.4 and 36.0 ) MCV: 68.5 fL -- Normal range between ( 80.0 and 100.0 ) [place] Auto: 4.0 % -- Normal range between ( 4.0 and 14.0 ) MPV: 6.9 fL -- Normal range between ( 6.4 and 10.8 ) Neutro Auto: 78.1 % -- Normal range between ( 36.0 and 75.0 ) Platelet: 216.0 E9/L -- Normal range between ( 150.0 and 500.0 ) WBC: 10.4 E9/L -- Normal range between ( 4.0 and 11.0 ) [place] Absolute: 0.4 E9/L -- Normal range between ( 0.2 and 1.0 ) Eos Absolute: 0.0 E9/L -- Normal range between ( 0.0 and 0.5 ) Basophil Absolute: 0.1 E9/L -- Normal range between ( 0.0 and 0.2 ) Neutro Absolute: 8.1 E9/L -- Normal range between ( 2.0 and 7.5 ) Lymph Absolute: 1.7 E9/L -- Normal range between ( 1.0 and 4.0 ) Coagulation 12/27/2022 3:49 PM INR: 1.0 PT: 10.9 second(s) -- Normal range between ( 9.4 and 12.5 ) PTT: 31.1 second(s) -- Normal range between ( 25.1 and 36.5 ) Urinalysis 12/27/2022 5:40 PM UA Bacteria: Trace /HPF UA Bili: Negative UA Color: STRAW UA Glucose: Negative UA Ketones: Negative UA Leuk Est: Trace UA Nitrite: Negative UA Protein: Negative UA RBC: 0-3 /HPF UA Squam Epithelial: 0-2 /HPF UA Urobilinogen: 0.2 EU/dL -- Normal range between ( 0.0 and 1.0 ) UA WBC: 0-5 /HPF UA Spec Desc: Bautista UA Blood: Negative UA Clarity: Clear UA pH: 6.5 -- Normal range between ( 5.0 and 9.0 ) UA Spec Grav: <=1.005 -- Normal range between ( 1.005 and 1.030 ) 12/27/2022 3:15 PM UA Mucous: Trace Chemistry 12/27/2022 5:40 PM U Suboxone Scr: Negative 12/27/2022 3:49 PM Creatinine: 0.7 mg/dL -- Normal range between ( 0.5 and 1.3 ) AGAP: 14 mEq/L -- Normal range between ( 6 and 16 ) CO2: 19 mmol/L -- Normal range between ( 21 and 31 ) Sodium Lvl: 132 mmol/L -- Normal range between ( 135 and 145 ) BUN: 9 mg/dL -- Normal range between ( 5 and 21 ) Potassium Lvl: 3.4 mmol/L -- Normal range between ( 3.5 and 5.3 ) Chloride: 102 mmol/L -- Normal range between ( 101 and 111 ) eGFR: >60 mL/min/1.73 m2 eGFR AA: >60 mL/min/1.73 m2 12/27/2022 3:14 PM U Benzodia Scr: Negative U Cocaine Scr: Negative U Opiate Scr: Negative U PCP Scr: Negative U Cannab Scr: Negative U Amph Scr: Negative U Renea Scr: Negative Microbiology 12/27/2022 3:15 PM Urine Culture: NEG Blood Bank 12/27/2022 5:14 PM TRANSFUSED: TRANSFUSED 12/27/2022 3:49 PM Computer XM Interp: Computer XM OK ABO/Rh: A POS ABSC Gel Interp: Negative Serology 12/27/2022 3:15 PM PAMG-1 Protein: Positive Molecular Diagnostics 12/27/2022 3:55 PM Group B Strep colonization by PCR: Positive Measurements: Height: 152.4 cm Weight: 65 kg Blood Pressure: 138 mmHg / 82 mmHg BMI: 28.37 kg/m2 Procedures No Procedures Documented Immunizations diphtheria/pertussis , acel/tetanus adult (12/30/2022) Fin (more content not included)... [facility] Inpatient Patient Summaryon 12-31-2022 Inpatient Patient Summary [place] [id number] Patient Discharge Instructions PERSON INFORMATION Name: BETSY FERRERA Date of : 1985 Current Date: 12/30/2022 23:07:04 PHYSICIANS Admitting Physician: Danis Garcia MD Primary Care Physician: Zachary Boyd MD PCP Comment: Discharge Diagnosis: Advanced maternal age in multigravida; Hepatitis C; History of heroin use; History of reversal of tubal ligation; Intrauterine growth restriction (IUGR), delivered, current hospitalization; S/P repeat low transverse Condition at Discharge: Stable BETSY FERRERA has been given the following list of follow-up instructions, prescriptions, and patient education materials: PATIENT FOLLOW-UP INFORMATION Diet: Regular Activity: Expect mild pain, Expect minimal amount of drainage and/or bleeding, Activity as tolerated Wound Care Instructions: Keep incision dry Remove Your Dressing IN: Days Call Your Doctor For: Persistent or heavy bleeding, Temperature above 101.5 degrees, Persistent vomiting IF UNABLE TO CONTACT YOUR PHYSICIAN AND YOU FEEL IT IS AN EMERGENCY, GO TO THE NEAREST EMERGENCY ROOM OR CALL 911 Home Treatment: Devices/Equipment: Special Services: Additional Instructions: Physician to provide the following pending test results: None Follow up: With: Address: When: Dr. Garcia [phone] Within 2 weeks With: Address: When: Dr. Garcia [phone] Within 6 weeks Comments: Call for any problems. In the event that this physician does not participate in your insurance network, please consult with your insurance company to find a nearby participating provider. Comment: IBAN Guzman PAMELA, have received the attached patient education materials/instructio ns and have verbalized understanding. Patient Signature Date Clinican/Nurse Signature Date MEDICATION LIST New Medications [id number], [address], [place] [id number], [phone] ibuprofen (ibuprofen 600 mg Tab) 1 Tablets By Mouth every 6 hours. Refills: 0. Last Dose: Next Dose: Medications to Continue with No Changes Other Medications multivitamin, ( Multivitamins) 1 Tablets By Mouth every day. Last Dose: Next Dose: Pharmacy Information: [facility] PATIENT EDUCATION INFORMATION Instructions: Medication Leaflets: You may receive a survey from [employer] asking you to rate your care experience. Your feedback is important and will help us understand what we do well and how we can improve the quality of care we provide to you, your loved ones and our community. It?s an honor to serve you. Thank you for choosing [facility] C Urineon 12-30-2022 Bacteria identified Cx Nom (U) Microbiology PROCEDURE: Urine Culture [R1] SOURCE: U CleanCatch BODY SITE: COLLECTED DATE/TIME: 12/27/2022 15:15 EST RECEIVED DATE/TIME: 12/28/2022 07:05 EST START DATE/TIME: 12/28/2022 07:05 EST FREE TEXT SOURCE: Jose MATA, Danis Garcia MD, Danis Stratton FINAL REPORTS Final Report [] Verified Date/Time: 12/30/2022 10:58 EST <10,000 cfu/ml Mixed skin contaminants Performing Locations R1: This test was performed at: [facility], [address] [place] [address], [facility] , , [facility] Comment on above: Performed By: #### 1 [id number] #### [facility] [address] [place] [address] Vaccinationson 12-30-2022 Vaccinations [id number]#[id number]:127 Normal [facility] Main OR Intraoperative Recor don 12-29-2022 Main OR Intraoperative Record IntraOp Document Type FT Summary Primary Physician: Danis Garcia MD Finalized Date/Time: 12/29/22 08:51:53 Pt. Name: BETSY FERRERA/Sex: 1985 Female Med Rec #: [id number] Physician: Jose MATA, Danis Stratton Financial #: [id number] Pt. Type: I Room/Bed: 02/ Admit/Disch: 12/27/22 14:43:07 - Institution: Case Times FT Entry 1 Patient Times In Room 12/27/22 16:28:00 Out Room 12/27/22 17:50:00 Procedure Times Start 12/27/22 16:56:00 Stop 12/27/22 17:42:00 Anesthesia Times Start 12/27/22 16:28:00 Stop 12/27/22 17:50:00 Last Modified By: Keyshawn Rossi 12/27/22 18:08:02 General Comments: 12/29/22 Chart opened to review and send charges LRoth CSFA Case Attendance FT Entry 1 Entry 2 Entry 3 Case Attendee Win Lindquist DO, Danis Garcia MD, Danis Dunne RN, CNOR, Heidy Role Performed Anesthesiologist of Surgeon - Primary FUR FARMER Record Time In 12/27/22 16:28:00 12/27/22 16:28:00 12/27/22 17:28:00 Time Out 12/27/22 17:50:00 12/27/22 17:50:00 12/27/22 17:50:00 Procedure SECTION SECTION SECTION Comments Last Modified By: Keyshawn Rossi Terry T Sweene, Terry T 12/27/22 18:10:05 12/27/22 18:10:05 12/27/22 18:10:05 Entry 4 Entry 5 Case Attendee Keyshawn Rossi Jessica D Role Performed Basket Filler - Primary Scrub - Primary Time In 12/27/22 16:28:00 12/27/22 16:28:00 Time Out 12/27/22 17:50:00 12/27/22 17:50:00 Procedure SECTION SECTION Comments Last Modified By: Keyshawn Rossi Terry T 12/27/22 18:10:05 12/27/22 18:10:05 General Comments: OB STAFF - NICO DIANE RN, ROSA STUDENT - AVAILABLE FOR THE CASE. Ias ROSSI RN. Perioperative Protocols FT Pre-Care Text: Implements protective measures prior to operative or invasive procedure, confirms identity before the operative or invasive procedure, verifies operative procedure, surgical site, and laterality Entry 1 Procedure(s) SECTION Patient Identity Birthday, Blood Band, Verified (select at ID Band Check, Patient least 2): Participation Consents / H and P Anesthesia Consent, Operative Site N/A Verified HandP, Surgery/Procedure Marking Verified Consent, Transfusion Consent Surgical Site Yes Laterality Verified n/a Verified Procedure Verified Yes Correct Patient Yes Position Verified Availability Equipment, Implant Prep Dry Yes Verified (If Applicable) PreOp Antibiotic Yes Time Out Win Lindquist DO, Danis Durham, Given Participants Danis Garcia MD, Vibha RN, CNOR, Elin Price, Keyshawn Rossi, Kimberley Manjarrez Time Out Complete 12/27/22 16:45:00 Outcomes Met? Yes Last Modified By: Keyshawn Rossi 12/27/22 18:11:15 Post-Care Text: The patient is free from signs and symptoms of injury caused by extraneous objects Allergy Information FT Pre-Care Text: Verifies allergies Entry 1 Allergies Reviewed? Yes Allergies Reviewed Self/Patient With Outcomes Met? Yes Last Modified By: Keyshawn Rossi 12/27/22 17:32:22 Post-Care Text: The patient received appropriate medication(s) safely administered during the perioperative period Surgical Procedures FT Entry 1 Procedure Description Procedure SECTION Surgeon Description SECTION Primary Procedure Yes Primary Surgeon Danis Garcia MD Start 12/27/22 16:56:00 Stop 12/27/22 17:42:00 Anesthesia Type MAC Surgical Service Obstetric Gynecology Wound Class 2 - Clean-Contaminated Last Modified By: Keyshawn Rossi 12/27/22 18:11:37 General Case Data FT Pre-Care Text: Classifies surgical wound, implements aseptic technique, initiates traffic control Entry 1 Case Information OR FT Case Level Level 4 Wound Class 2 - Clean-Contaminated Specialty Obstetric Gynecology ASA Class 3E Preop Diagnosis , ANEMIA, Postop Same As Preop Yes UNREASSURING HEART TONES Postop Diagnosis , ANEMIA, Outcomes Met? Yes UNREASSURING HEART TONES Last Modified By: Keyshawn Rossi 12/27/22 17:34:14 Post-Care Text: The patient is free from signs and symptoms of infection Skin Assessment (Pre Procedure) FT Pre-Care Text: Implements protective measures to prevent skin/ tissue injury due to thermal or mechanical sources Evaluates for signs and symptoms of physical injury to skin and tissue Entry 1 Skin Integrity Intact, [place], Warm, and Skin Abnormality No Dry Outcomes Met? No Last Modified By: Keyshawn Rossi 12/27/22 17:34:29 Post-Care Text: The patient is free from signs and symptoms of injury caused by extraneous objects Patient Positioning FT Pre-Care Text: Identifies physical alterations that require additional precautions for procedure-specific positioning, verifies presence of prosthetics or corrective devices, positions the patient, evaluates the patient for signs and symptoms of injury as a result of positioning Entry 1 Procedure SECTION Body Position Menendez (more content not included)... Normal [facility] Operative Reporton Operative Report SURGERY DATE: 12/27/2022 PREOPERATIVE DIAGNOSIS: Intrauterine at term, 37 weeks gestation, small for gestational age, spontaneous rupture of membranes, previous history of section POSTOPERATIVE DIAGNOSIS: Intrauterine at term, 37 weeks gestation, small for gestational age, spontaneous rupture of membranes, previous history of section OPERATION: Repeat low transverse section ANESTHESIA: Regional ANESTHESIOLOGIST: Viral Mayes Jr..Opal. PREOPERATIVE HISTORY: The patient is a 37-year-old 5, para 4, AB 0 female who presented to Labor and Delivery having had spontaneous rupture of membranes several days before. She had an ultrasound in my office which revealed low biophysical profile score although when she arrived in Labor and Delivery she had basically reactive strip. She had AmniSure positive and had minimal fluid on ultrasound and small for gestational age. Her had otherwise been complicated by repeat section x4, advanced maternal age, history of hepatitis C, history of drug use in the past, severe anemia. She was made ready for the Operative Suite after appropriately signing consent forms. Please see records for details. PROCEDURE: The patient was taken to the Operative Suite and after regional anesthesia was administered, the patient was draped and prepped in the usual fashion for abdominal surgery. A sharp knife was used to make a scoring incision in a low transverse fashion allowing for removal of her previous scar. This was extended through the subcutaneous tissue using the Bovie and the fascia was identified, incised along the midline and extended in a bilateral fashion using the Byrnes scissors. The fascia was then reflected in a cephalad and caudal direction. The rectus muscles were split along the midline and the peritoneum grasped with hemostats, incised with the Metzenbaum scissors and extended in a cephalad and caudal direction. The Doyen retractor was used to reflect the bladder out of the operative field and the bladder flap was created using the Metzenbaum scissors. Doyen retractor was further used to reflect the bladder out of the operative field and a sharp knife was used to make a scoring incision in low transverse fashion which allowed for delivery of a 4 pound 4 ounce male with Apgars of 8 and 9. Arterial and venous cord pHs were obtained. The baby was handed off to Dr. Carver who was in attendance for the delivery. The placenta delivered via manual extraction. The uterus contracted down well. The uterine incision was closed using a running locking stitch of 0 Vicryl suture followed by an imbricating stitch of 0 Vicryl suture. Hemostasis was assured and the bladder flap was then reapproximated using 3-0 Vicryl suture in a continuous running stitch. Copious amounts of irrigation were used and the peritoneum was then closed using 3-0 Vicryl suture. There was a fair amount of omental adhesions present. The rectus muscles were brought along the midline with interrupted stitches of 0 Vicryl suture. Hemostasis was assured in the subfascial space and the fascia was then closed using 0 Vicryl suture in a continuous running stitch. Hemostasis was assured in the subcutaneous tissue and the subcutaneous tissue brought together using 3-0 Monocryl suture in a continuous running stitch. The skin edges were closed with 4-0 Vicryl suture in a subcuticular stitch. Steri-Strips and the usual wound dressing were applied. ESTIMATED BLOOD LOSS: 400 cc FLUID REPLACEMENT: Adequate COMPLICATIONS: There were no complications COUNTS: Sponge and needle counts correct DISPOSITION: The patient was transferred to Recovery Room in stable condition Tonny Melton Dictated: 12/27/2022 [id number] Transcribed: 12/28/2022 [facility] Comment on above: Result Comment: Elec tronically Signed By: Jose MATA, Danis Stratton\.br\Date and Time Signed: 12/29/22 07:09 EST Progress Note-Physicianon Progress Note-Physician Patient: BETSY FERRERA Age: 37 years Sex: Female : 1985 Associated Diagnoses: None Author: Danis Garcia MD Physical Examination Vital Signs 12/28/2022 16:04 EST Heart Rate Monitored 83 bpm Systolic Blood Pressure 141 mmHg HI Diastolic Blood Pressure 89 mmHg 12/28/2022 16:04 EST Respiratory Rate 18 br/min 12/28/2022 16:03 EST Temperature Axillary 36.7 DegC Breast: No mass, No tenderness. Exam: incision: Intact, Clean, Dry. Uterus: Symmetric, firm and below the umbillicus, firm and below the umbillicus, normal lochia. Impression and Plan Plan normal post-op exam. Course: Progressing as expected. Normal [facility] Comment on above: Result Comment: Elec tronically Signed By: Danis Garcia MD\.br\Date and Time Signed: 12/29/22 07:39 EST Auto Diffon 12-28-2022 Basophils/100 WBC (Bld) 1.1 % Normal 0.0-2.0 [facility] Comment on above: Order Comment: Order Added by Discern Expert. Performed By: #### 2 [id number], [id number], [id number] #### [facility] [address] [place] [address] Basophils/Leukocytes Auto (Bld) [Pure # fraction] 0.1 E9/L Normal 0.0-0.2 [facility] Comment on above: Order Comment: Order Added by Discern Expert. Performed By: #### 2 [id number], [id number], [id number] #### [facility] [address] [place] [address] Eosinophils/100 WBC (Bld) 0.2 % Normal 0.0-8.0 [facility] Comment on above: Order Comment: Order Added by Discern Expert. Performed By: #### 2 [id number], [id number], [id number] #### [facility] [address] [place] [address] Eosinophils/Leukocytes Auto (Bld) [Pure # fraction] 0.0 E9/L Normal 0.0-0.5 [facility] Comment on above: Order Comment: Order Added by Vinny Expert. Performed By: #### 2 [id number], [id number], [id number] #### [facility] [address] [place] [address] Lymphocytes/100 WBC (Bld) 16.6 % Normal 14.0-50.0 [facility] Comment on above: Order Comment: Order Added by Vinny Expert. Performed By: #### 2 257433, [id number], [id number] #### [facility] [address] [place] [address] Lymphocytes/Leukocytes Auto (Bld) [Pure # fraction] 1.7 E9/L Normal 1.0-4.0 [facility] Comment on above: Order Comment: Order Added by Vinny Expert. Performed By: #### 2 957031, [id number], [id number] #### [facility] [address] [place] [address] Monocytes/100 WBC (Bld) 4.0 % Normal 4.0-14.0 [facility] Comment on above: Order Comment: Order Added by Vinny Expert. Performed By: #### 2 396678, [id number], [id number] #### [facility] [address] [place] [address] Monocytes/Leukocytes Auto (Bld) [Pure # fraction] 0.4 E9/L Normal 0.2-1.0 [facility] Comment on above: Order Comment: Order Added by Vinny Expert. Performed By: #### 2 298053, [id number], [id number] #### [facility] [address] [place] [address] Neutrophils/100 WBC (Bld) 78.1 % High 36.0-75.0 [facility] Comment on above: Order Comment: Order Added by Vinny Expert. Performed By: #### 2 362131, [id number], [id number] #### [facility] [address] [place] [address] Neutrophils/Leukocytes Auto (Bld) [Pure # fraction] 8.1 E9/L High 2.0-7.5 [facility] Comment on above: Order Comment: Order Added by Discern Expert. Performed By: #### 2 834755, [id number], [id number] #### [facility] [address] [place] [address] Buprenorphine Scr Uron 12-28 Buprenorphine Ql (U) Negative Normal Negative Fish [facility] Comment on above: Order Comment: urine already in lab Result Comment: Nega tive Cutoff: <10 ng/mL These drug screen results are to be used for medical (i.e., treatment) purposes only. Unconfirmed drug screening results must not be used for non-medical purposes (e.g., employment testing, legal testing). Performed By: #### 7 [id number] ####[facility] [address] [place] [address] CBC w/ Auto Diffon 3 Erythrocyte distribution width (RBC) [Ratio] 23.5 % High 10.9-14.2 [facility] Comment on above: Performed By: #### 2 634309, [id number], [id number] #### [facility] [address] [place] [address] Hematocrit (Bld) [Volume fraction] 20.3 % Low 34.0-46.0 [facility] Comment on above: Performed By: #### 2 663245, [id number], [id number] #### [facility] [address] [place] [address] Hemoglobin (Bld) [Mass/Vol] 6.5 g/dL Abnormal 12.0-16.0 [facility] Comment on above: Result Comment: Resu lts Called To Rola Lazaro/ OB By Jill Cross And Read Back For Confirmation On 12/28/2022 07:04:57 EST Results Verified By Repeat Analysis Performed By: #### 2 046200, [id number], [id number] #### [facility] [address] [place] [address] MCH (RBC) [Entitic mass] 21.8 pg Low 27.0-34.0 [facility] Comment on above: Performed By: #### 2 710604, [id number], [id number] #### [facility] [address] [place] [address] MCHC (RBC) [Mass/Vol] 31.8 g/dL Normal 31.4-36.0 [facility] Comment on above: Performed By: #### 2 096727, [id number], [id number] #### [facility] [address] [place] [address] MCV (RBC) [Entitic vol] 68.5 fL Low 80.0-100.0 [facility] Comment on above: Performed By: #### 2 393775, [id number], 4450505 #### [facility] [address] [place] [address] Platelet mean volume (Bld) [Entitic vol] 6.9 fL Normal 6.4-10.8 [facility] Comment on above: Performed By: #### 2 024853, [id number], [id number] #### [facility] [address] [place] [address] Platelets (Bld) [#/Vol] 216.0 E9/L Normal 150.0-500.0 [facility] Comment on above: Performed By: #### 2 102569, [id number], [id number] #### [facility] [address] [place] [address] RBC (Bld) [#/Vol] 3.0 E12/L Low 4.3-5.9 [facility] Comment on above: Result Comment: Resu lts are consistent with previous path review performed on 11/25/2022. Reviewed by BR. Performed By: #### 2 607357, [id number], 4784152 #### [facility] [address] [place] [address] WBC corrected for nucl RBC Auto (Bld) [#/Vol] 10.4 E9/L Normal 4.0-11.0 [facility] Comment on above: Performed By: #### 2 614096, [id number], [id number] #### [facility] [address] [place] [address] Group B Strep by PCRon 12-28 Group B Strep colonization by PCR Positive Abnormal Negative [facility] Comment on above: Performed By: #### 4 [id number] ####[facility] [address] [place] [address] Insurance Correspondence Off iceon 12-28-2022 Insurance Correspondence Office [id number] #[id number]:127 [facility] Interdisciplinary Note - Soc ial Workeron 12-28-2022 Interdisciplinary Note - Bareback Rider This SW met with patient and FOB, Willian Reyes, today to discuss patient's hx of substance abuse. 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 She states that she did this by taking Vivitrol for a while along with changing her people, places, and things. The Vivitrol was stopped prior to patient getting . FOB is very supportive and encouraging of her sobriety. Patient does have 4 older children, ages 9-14, who she gave custody of to her mother. They informed SW that patient has been able to earn back her mother's trust and therefore is now allowed to see her children and have them stay at her house. She states her mother has permanent custody, as she signed it over to her, however the goal is to eventually have custody back. They are taking the process with custody slowly as they don't want to yank the kids away too quickly from the home they have known for quite some time. They report the children are going to be able to come see infant at the hospital. FOB also has another child, a 12-year-old daughter Yenny Reyes, whom they he has at times. He states she will be in later today to see infant. Patient and FOB report having everything that they need for , Rom Reyes, including a car seat, bassinet, and crib. SW did educate them on the need to look at the weight limits for the car seat that they have due to the fact was born at 4lb 4oz and many car seats begin at 5lbs. They were also educated on the need for a car seat assessment to be completed by nursery staff due to infant's small size. Patient is already signed up for [facility] in [facility] and states that she is getting hooked up with [employer] there as well. They have reliable transportation. Patient does not currently work. FOB works maritime guard. No needs or concerns noted at this time. SW will remain available. Normal [facility] Morphon 12-28-2022 Anisocytosis Ql (Bld) Present Normal [facility] Comment on above: Order Comment: Order Added by Discern Expert. Performed By: #### 2 929429, [id number], [id number] #### [facility] [address] [place] [address] Elliptocytes LM Ql (Bld) Present Normal [facility] Comment on above: Order Comment: Order Added by Discern Expert. Performed By: #### 2 704635, [id number], 4298049 #### [facility] [address] [place] [address] Hypochromia Auto Ql (Bld) Present Normal [facility] Comment on above: Order Comment: Order Added by Discern Expert. Performed By: #### 2 891450, [id number], [id number] #### [facility] [address] [place] [address] Microcytes Ql (Bld) Present Normal [facility] Comment on above: Order Comment: Order Added by Discern Expert. Performed By: #### 2 735482, [id number], [id number] #### [facility] [address] [place] [address] Morphology Beltran (Bld) [Interp] See Morphology Normal [facility] Comment on above: Order Comment: Order Added by Discern Expert. Performed By: #### 2 617924, [id number], [id number] #### [facility] [address] [place] [address] Ovalocytes LM Ql (Bld) Present Normal [facility] Comment on above: Order Comment: Order Added by Discern Expert. Performed By: #### 2 669662, [id number], [id number] #### [facility] [address] [place] [address] Polychromasia LM Ql (Bld) Present Normal [facility] Comment on above: Order Comment: Order Added by Discern Expert. Performed By: #### 2 521536, [id number], [id number] #### [facility] [address] [place] [address] Progress Note-Physicianon Progress Note-Physician Patient: BETSY FERRERA Age: 37 years Sex: Female : 1985 Associated Diagnoses: None Author: Danis Garcia MD Physical Examination Vital Signs 12/28/2022 3:43 EST Temperature Oral 36.8 DegC Heart Rate Monitored 104 bpm HI Respiratory Rate 16 br/min Systolic Blood Pressure 121 mmHg Diastolic Blood Pressure 82 mmHg Breast: No mass, No tenderness. Exam: incision: Intact, Clean, Dry. Uterus: Symmetric, firm and below the umbillicus, firm and below the umbillicus, normal lochia. Impression and Plan Plan normal post-op exam. Course: Progressing as expected. Normal [facility] Comment on above: Result Comment: Elec tronically Signed By: Danis Garcia MD\.br\Date and Time Signed: 12/28/22 07:11 EST ABO/Rhon 12-27-2022 ABO/Rh Positive Invalid Interpretation Code [facility] Comment on above: Performed By: #### 1 [id number], [id number], [id number], [id number] ####[facility] [address] [place] [address] ABO/Rh History Checkon 12-27 ABO/Rh History Check Verified Hx Blood Type Normal [facility] Comment on above: Performed By: #### 1 [id number], [id number], [id number], [id number] ####[facility] [address] [place] [address] ABSCon 12-27-2022 ABSC Gel Interp Negative Normal [facility] Comment on above: Performed By: #### 1 [id number], [id number], [id number], [id number] ####[facility] [address] [place] [address] AmniSureon 12-27-2022 PAMG-1 Protein Positive Abnormal Negative [facility] Comment on above: Result Comment: Resu lts Called To Georgia Johnston/OB By dc And Read Back For Confirmation On 12/27/2022 15:38:48 EST. Performed By: #### 2 [id number] ####[facility] [address] [place] [address] PAMG-1 Protein Internal Control Positive Normal Positive [facility] Comment on above: Performed By: #### 2 [id number] ####[facility] [address] [place] [address] Auto Diffon 12-27-2022 Basophils/100 WBC (Bld) 0.5 % Normal 0.0-2.0 [facility] Comment on above: Order Comment: Order Added by Discern Expert. Performed By: #### 2 685572, [id number], 4573290 #### [facility] [address] [place] [address] Basophils/Leukocytes Auto (Bld) [Pure # fraction] 0.1 E9/L Normal 0.0-0.2 [facility] Comment on above: Order Comment: Order Added by Discern Expert. Performed By: #### 2 082699, [id number], 9338134 #### [facility] [address] [place] [address] Eosinophils/100 WBC (Bld) 0.1 % Normal 0.0-8.0 [facility] Comment on above: Order Comment: Order Added by Discern Expert. Performed By: #### 2 017193, [id number], [id number] #### [facility] [address] [place] [address] Eosinophils/Leukocytes Auto (Bld) [Pure # fraction] 0.0 E9/L Normal 0.0-0.5 [facility] Comment on above: Order Comment: Order Added by Discern Expert. Performed By: #### 2 967964, [id number], [id number] #### [facility] [address] [place] [address] Lymphocytes/100 WBC (Bld) 19.4 % Normal 14.0-50.0 [facility] Comment on above: Order Comment: Order Added by Discern Expert. Performed By: #### 2 738157, [id number], [id number] #### [facility] [address] [place] [address] Lymphocytes/Leukocytes Auto (Bld) [Pure # fraction] 2.2 E9/L Normal 1.0-4.0 [facility] Comment on above: Order Comment: Order Added by Discern Expert. Performed By: #### 2 843051, [id number], [id number] #### [facility] [facility] [address] [place] [address] 31867 Monocytes/100 WBC (Bld) 3.5 % Low 4.0-14.0 [facility] Comment on above: Order Comment: Order Added by Discern Expert. Performed By: #### 2 830448, [id number], 4783490 #### [facility] [address] [place] [address] 55350 Monocytes/Leukocytes Auto (Bld) [Pure # fraction] 0.4 E9/L Normal 0.2-1.0 [facility] Comment on above: Order Comment: Order Added by Discern Expert. Performed By: #### 2 457918, 54463567, 4429520 #### [facility] [address] [place] [address] 02294 Neutrophils/100 WBC (Bld) 76.5 % High 36.0-75.0 [facility] Comment on above: Order Comment: Order Added by Discern Expert. Performed By: #### 2 773147, 66955263, 3311879 #### [facility] [address] [place] [address] 17754 Neutrophils/Leukocytes Auto (Bld) [Pure # fraction] 8.5 E9/L High 2.0-7.5 [facility] Comment on above: Order Comment: Order Added by Discern Expert. Performed By: #### 2 380270, 71584995, 5282850 #### [facility] [address] [place] [address] BUNon 12-27-2022 Urea nitrogen [Mass/Vol] 9 mg/dL Normal 5-21 [facility] Comment on above: Performed By: #### 2 785687, 57155631, 5953647 #### [facility] [address] [place] [address] Blood Bank ID#on 12-27-2022 BBID# [id number] Invalid Interpretation Code [facility] Comment on above: Performed By: #### 1 1422090, 46670264, 6013764, [id number] ####[facility] [address] [place] [address] CBC w/ Auto Diffon Erythrocyte distribution width (RBC) [Ratio] 21.7 % High 10.9-14.2 [facility] Comment on above: Performed By: #### 2 588994, 16618264, 1568763 #### [facility] [address] [place] [address] Hematocrit (Bld) [Volume fraction] 21.9 % Low 34.0-46.0 [facility] Comment on above: Performed By: #### 2 959212, 04455603, 8318130 #### [facility] [address] [place] [address] Hemoglobin (Bld) [Mass/Vol] 6.4 g/dL Abnormal 12.0-16.0 [facility] Comment on above: Result Comment: Resu lts Called To Shey Cao/OB By KD And Read Back For Confirmation On 12/27/2022 16:13:34 EST Results Verified By Repeat Analysis Performed By: #### 2 337861, 05898687, 8821042 #### [facility] [address] [place] [address] MCH (RBC) [Entitic mass] 19.0 pg Low 27.0-34.0 [facility] Comment on above: Performed By: #### 2 078393, 26168814, 3950887 #### [facility] [address] [place] [address] MCHC (RBC) [Mass/Vol] 29.5 g/dL Low 31.4-36.0 [facility] Comment on above: Performed By: #### 2 537190, 57785985, 4980049 #### [facility] [address] [place] [address] MCV (RBC) [Entitic vol] 64.3 fL Low 80.0-100.0 [facility] Comment on above: Performed By: #### 2 069762, 93349837, 7591130 #### [facility] [address] [place] [address] Platelet mean volume (Bld) [Entitic vol] 6.4 fL Normal 6.4-10.8 [facility] Comment on above: Performed By: #### 2 443633, 88556999, 8976182 #### [facility] [address] [place] [address] Platelets (Bld) [#/Vol] 316.0 E9/L Normal 150.0-500.0 [facility] Comment on above: Performed By: #### 2 203876, 61371507, 6281422 #### [facility] [address] [place] [address] 21010 RBC (Bld) [#/Vol] 3.4 E12/L Low 4.3-5.9 [facility] Comment on above: Performed By: #### 2 827282, 18738216, 4708531 #### [facility] [address] [place] [address]59[address] WBC corrected for nucl RBC Auto (Bld) [#/Vol] 11.1 E9/L High 4.0-11.0 [facility] Comment on above: Performed By: #### 2 188165, 20321604, 0006449 #### [facility] [address] [place] [address] 30377 Consent for Anesthesiaon Consent for Anesthesia [id number] 2#1.00CD:127 Normal [facility] Consent for Procedure/Surger yon 12-27-2022 Consent for Procedure/Surgery [id number] 2#1.00CD:127 [facility] Consent for Treatmenton Consent for Treatment [id number] #1.00CD:127 [facility] Creatinineon 12-27-2022 Creatinine [Mass/Vol] 0.7 mg/dL Normal 0.5-1.3 [facility] Comment on above: Performed By: #### 2 317972, 29790780, 2713567 #### [facility] [address] [place] [address] Discharge Instructionson Discharge Instructions [id number] [id number] #1.00CD:127 [facility] Help Me Grow Referralon Help Me Grow Referral [id number] 02 [id number] 1#1.00CD:127 [facility] Insurance Correspondence Off iceon 12-27-2022 Insurance Correspondence Office [id number] #1.00CD:127 [facility] IntraOperative Documentson 12-27-2022 IntraOperative Documents [id number] 1#1.00CD:127 [facility] Lyteson 12-27-2022 Anion gap [Moles/Vol] 14 mmol/L Normal 6-16 [facility] Comment on above: Performed By: #### 2 621753, 92036133, 0587524 #### [facility] [address] [place] [address] Chloride [Moles/Vol] 102 mmol/L Normal 101-111 [facility] Comment on above: Performed By: #### 2 153235, 45728126, 4508094 #### [facility] [address] [place] [address] CO2 [Moles/Vol] 19 mmol/L Low 21-31 [facility] Comment on above: Performed By: #### 2 117302, 35762071, 2397738 #### [facility] [address] [place] [address] Potassium [Moles/Vol] 3.4 mmol/L Low 3.5-5.3 [facility] Comment on above: Performed By: #### 2 649253, 66656522, 0183208 #### [facility] [address] [place] [address] Sodium [Moles/Vol] 132 mmol/L Low 135-145 [facility] Comment on above: Performed By: #### 2 603721, 00201438, 1093084 #### [facility] [address] [place] [address] Main OR PACU I Recordon Main OR PACU I Record PACU Phase I Document Type FT Summary Primary Physician: Danis Garcia MD Finalized Date/Time: 12/27/22 18:58:52 Pt. Name: BETSY FERRERA/Sex: 1985 Female Med Rec #: [id number] Physician: Danis Garcia MD Financial #: [id number] Pt. Type: I Room/Bed: 02/ Admit/Disch: 12/27/22 14:43:07 - Institution: Case Times PACU I FT Pre-Care Text: Identifies barriers to communication and implements measures to provide psychological support Develops individualized plan of care, and ensures continuity of care Maintains patient's dignity and privacy, and maintains patient confidentiality Identifies and reports philosophical, cultural, and spiritual beliefs and values Identifies individual values and wishes concerning care Implements aseptic technique, and administers prescribed antibiotic therapy and immunizing agents as ordered Evaluates postoperative tissue perfusion Implements thermoregulation measures, and monitors body temperature Evaluates postoperative respiratory status Evaluates postoperative cardiac status Evaluates postoperative neurological status Assesses pain control, collaborated in initiating patient-controlled analgesia and implements alternative methods of pain control Verifies allergies, administers prescribed medications and solutions, evaluates response to medications Entry 1 In PACU I 12/27/22 17:52:00 Discharge from PACU 12/27/22 18:25:00 I Outcomes Met? Yes Last Modified By: Taryn Mcguire RN 12/27/22 18:58:34 Post-Care Text: The patient demonstrates knowledge of the expected response to the operative or invasive procedure The patient's care is consistent with the individualized perioperative plan of care The patient's right to privacy is maintained The patient's value system, lifestyle, ethnicity, and culture are considered, respected, and incorporated into the perioperative plan of care The patient participates in decisions affecting his or her perioperative plan of care The patient is free from signs and symptoms of infection The patient has wound/tissue perfusion consistent with or improved from baseline levels established preoperatively The patient is at or returning to normothermia at the conclusion of the immediate postoperative period The patient's respiratory function is consistent with or improved from baseline levels established preoperatively The patient's cardiovascular status is consistent with or improved from baseline levels established preoperatively The patient's cardiovascular status is consistent with or improved from baseline levels established preoperatively The patient demonstrates and/or reports adequate pain control throughout the perioperative period The patient received appropriate medication(s), safely administered during the perioperative period Acuity Level PACU I FT Entry 1 Start Time 12/27/22 17:52:00 Stop Time 12/27/22 18:25:00 Acuity Level Acuity Level I Last Modified By: Taryn Mcguire RN 12/27/22 18:58:46 Finalized By: Taryn Mcguire RN Document Signatures Signed By: Taryn Mcguire RN 12/27/22 18:58 Normal [facility] Morphon 12-27-2022 Anisocytosis Ql (Bld) Present Normal [facility] Comment on above: Order Comment: Order Added by Discern Expert. Performed By: #### 2 157132, 80075338, 4865446 #### [facility] [address] [place] [address] Elliptocytes LM Ql (Bld) Present Normal [facility] Comment on above: Order Comment: Order Added by Discern Expert. Performed By: #### 2 991913, 68515323, 6186698 #### [facility] [address] [place] [address] Hypochromia Auto Ql (Bld) Present Normal [facility] Comment on above: Order Comment: Order Added by Discern Expert. Performed By: #### 2 534744, 44103411, 0480535 #### [facility] [address] [place] [address] Microcytes Ql (Bld) Present Normal [facility] Comment on above: Order Comment: Order Added by Discern Expert. Performed By: #### 2 942449, 48287651, 2716886 #### [facility] [address] [place] [address] Morphology Beltran (Bld) [Interp] See Morphology Normal [facility] Comment on above: Order Comment: Order Added by Discern Expert. Result Comment: Resu lts are consistent with previous path review performed on 11/24/22. Reviewed by KD. Performed By: #### 2 985753, 33711566, 7377366 #### [facility] [address] [place] [address] PT & PTTon 12-27-2022 aPTT Coag (PPP) [Time] 31.1 second(s) Normal 25.1-36.5 [facility] Comment on above: Result Comment: Para meter 15 days - 4 weeks 1 - 5 months 6 - 11 months 1 - 5 years 6 - 10 years 11 - 17 years PTT Mean: 35.4 (27.6-45.6) Mean: 33.5 (24.8-40.7) Mean: 32.4 (25.1-40.7) Mean: 31.6 (24.0-39.2) Mean: 31.6 (26.9-38.7) Mean: 31.0 (24.6-38.4) Pediatric Reference ranges were obtained from a study by Yohan Patton et al. prepared from 1437 samples obtained at 7 different centers using the same coagulation reagent and instrumentation as [facility]. Currently there are no coagulation studies available worldwide for children to 14 days, and no normal ranges. Heparin therapeutic range (represented by Anti-Factor Xa activity of 0.2 - 0.4 U/mL) corresponds to PTT of 56.6 - 109.0 sec. Performed By: #### 2 203821, 18746411, 1313234 #### [facility] [address] [place] [address] INR Coag (PPP) [Relative time] 1.0 {INR} Invalid Interpretation Code [facility] Comment on above: Result Comment: INR results are specifically intended to assess patients stabilized on long-term Anticoagulation therapy suggested INR?s ?Less Intensive Anticoagulation? 2.0 ? 3.0 Conventional Range 3.0 ? 4.5 Performed By: #### 2 076038, 88279275, 5887107 #### [facility] [address] [place] [address] PT Coag (PPP) [Time] 10.9 second(s) Normal 9.4-12.5 [facility] Comment on above: Result Comment: 15 d ays - 4 weeks 1 - 5 months 6 -11 months 1 ? 5 years 6 ? 10 years 11 -17 years Mean: 11.2 (9.5 ? 12.6) Mean: 11.0 (9.7 ? 12.8) Mean: 11.0 (9.8 ? 13.0) Mean: 11.3 (9.9 ? 13.4) Mean: 11.7 (10.0 ? 14.6) Mean: 11.8 (10.0 - 14.1) Pediatric Reference ranges were obtained from a study by Yohan Patton et al. prepared from 1437 samples obtained at 7 different centers using the same coagulation reagent and instrumentation as [facility]. Currently there are no coagulation studies available worldwide for children to 14 days, and no normal ranges. Performed By: #### 2 054393, 34998894, 0252708 #### [facility] [address] [place] [address] Recordson Records [id number] #1.00CD:127 Normal [facility] RCOon 12-27-2022 # of Units 2 Invalid Interpretation Code [facility] Comment on above: Order Comment: 2 uni ts on hold please Performed By: #### 1 [id number] ####[facility] [address] [place] [address] Date Required 12-27-22 Invalid Interpretation Code [facility] Comment on above: Order Comment: 2 uni ts on hold please Performed By: #### 1 [id number] ####[facility] [address] [place] [address] Product Type None Required Invalid Interpretation Code [facility] Comment on above: Order Comment: 2 uni ts on hold please Performed By: #### 1 [id number] ####[facility] [address] [place] [address] U Drug Screenon 12-27-2022 Amphetamines Screen method >1000 ng/mL Ql (U) Negative Normal Negative [facility] Comment on above: Result Comment: Nega tive Cutoff: <1000 ng/mL Performed By: #### 2 576034 ####[facility] [address] [place] [address] Barbiturates Screen Ql (U) Negative Normal Negative [facility] Comment on above: Result Comment: Nega tive Cutoff: <200 ng/mL Performed By: #### 2 042638 ####[facility] [address] [place] [address] Benzodiazepines Ql (U) Negative Normal Negative [facility] Comment on above: Result Comment: Nega tive Cutoff: <200 ng/mL Performed By: #### 2 991377 ####[facility] [address] [place] [address] Cocaine Ql (U) Negative Normal Negative [facility] Comment on above: Result Comment: Nega tive Cutoff: <300 ng/mL Performed By: #### 2 423449 ####[facility] [address] [place] [address] Opiates Screen Ql (U) Negative Normal Negative [facility] Comment on above: Result Comment: Nega tive Cutoff: <300 ng/mL Performed By: #### 2 391531 ####[facility] [address] [place] [address] Phencyclidine Screen method >25 ng/mL Ql (U) Negative Normal Negative [facility] Comment on above: Result Comment: Nega tive Cutoff: <25 ng/mL These drug screen results are to be used for medical (i.e., treatment) purposes only. Unconfirmed drug screening results must not be used for non-medical purposes (e.g., employment testing, legal testing). Performed By: #### 2 021463 ####[facility] [address] [place] [address] Tetrahydrocannabinol Screen method >50 ng/mL Ql (U) Negative Normal Negative [facility] Comment on above: Result Comment: Nega tive Cutoff: <50 ng/mL Performed By: #### 2 150930 ####[facility] [address] [place] [address] UA With Cult Reflexon 2022 Bacteria LM Ql (Urine sed) TRACE Normal Trace [facility] Comment on above: Performed By: #### 2 575445, 54033936, 9361580 #### [facility] [address] [place] [address] Bilirubin Ql (U) Negative Normal Negative [facility] Comment on above: Performed By: #### 2 658825, 09854980, 5360186 #### [facility] [address] [place] [address] Clarity (U) CLEAR Normal Clear [facility] Comment on above: Performed By: #### 2 234819, 22320104, 4859943 #### [facility] [address] [place] [address] Color (U) STRAW Invalid Interpretation Code [facility] Comment on above: Performed By: #### 2 897143, 24199292, 8726933 #### [facility] [address] [place] [address] Epithelial cells.squamous LM.HPF (Urine sed) [#/Area] 0-2 Normal 0-2 [facility] Comment on above: Performed By: #### 2 532730, 69179616, 6425790 #### [facility] [address] [place] [address] Glucose Test strip (U) [Mass/Vol] Negative Normal Negative [facility] Comment on above: Performed By: #### 2 070198, 41390727, 6262321 #### [facility] [address] [place] [address] Hemoglobin Ql (U) Negative Normal Negative [facility] Comment on above: Performed By: #### 2 865180, 31800600, 5245199 #### [facility] [address] [place] [address] Ketones (U) [Mass/Vol] Negative Normal Negative [facility] Comment on above: Performed By: #### 2 734897, 26186735, 6683107 #### [facility] [address] [place] [address] [place].plasma/[place]. RBC (Bld) [Mass ratio] 0-3 Normal 0-3 [facility] Comment on above: Performed By: #### 2 399745, 21029995, 7536611 #### [facility] [address] [place] [address] Nitrite Ql (U) Negative Normal Negative [facility] Comment on above: Performed By: #### 2 650769, 51135653, 7865116 #### [facility] [address] [place] [address] pH (U) 6.5 [pH] Invalid Interpretation Code 5.0-9.0 [facility] Comment on above: Performed By: #### 2 292806, 04208377, 6959061 #### [facility] [address] [place] [address] Protein (U) [Mass/Vol] Negative Normal Negative [facility] Comment on above: Performed By: #### 2 612154, 49726525, 6367557 #### [facility] [address] [place] [address] Specific gravity (U) [Rel density] <=1.005 Invalid Interpretation Code 1.005-1.030 [facility] Comment on above: Performed By: #### 2 440798, 71592117, 8958146 #### [facility] [address] [place] [address] Type of Urine collection method Bautista Normal [facility] Comment on above: Performed By: #### 2 594029, 32056507, 3220586 #### [facility] [address] [place] [address] Urobilinogen Qn (U) 0.2 {Amelie'U}/dL Normal 0.0-1.0 [facility] Comment on above: Performed By: #### 2 342254, 11583279, 8972000 #### [facility] [address] [place] [address] WBC Auto Ql (U) TRACE Abnormal Negative [facility] Comment on above: Performed By: #### 2 559668, 37703106, 6927564 #### [facility] [address] [place] [address] WBC LM.HPF (Urine sed) [#/Area] 0-5 Normal 0-5 [facility] Comment on above: Performed By: #### 2 967223, 14536925, 3613551 #### [facility] [address] [place] [address] Bilirubin Ql (U) Negative Normal Negative [facility] Comment on above: Performed By: #### 1 5599944, 1025399 #### [facility] [address] [place] [address] Clarity (U) CLEAR Normal Clear [facility] Comment on above: Performed By: #### 1 5863571, 1074653 #### [facility] [address] [place] [address] Color (U) YELLOW Normal Yellow [facility] Comment on above: Performed By: #### 1 6823698, 7451486 #### [facility] [address] [place] [address] Epithelial cells.squamous LM.HPF (Urine sed) [#/Area] 0-2 Normal 0-2 [facility] Comment on above: Performed By: #### 1 2338026, 9420821 #### [facility] [address] [place] [address] Glucose Test strip (U) [Mass/Vol] Negative Normal Negative [facility] Comment on above: Performed By: #### 1 0971872, 8682582 #### [facility] [address] [place] [address] Hemoglobin Ql (U) 1+ Abnormal Negative [facility] Comment on above: Performed By: #### 1 2425930, 9396350 #### [facility] [address] [place] [address] Ketones (U) [Mass/Vol] Negative Normal Negative [facility] Comment on above: Performed By: #### 1 7660936, 0825182 #### [facility] [address] [place] [address] [place].plasma/[place]. RBC (Bld) [Mass ratio] 0-3 Normal 0-3 [facility] Comment on above: Performed By: #### 1 6584960, 1385330 #### [facility] [address] [place] [address] Mucus Ql (Urine sed) TRACE Normal [facility] Comment on above: Performed By: #### 1 8624070, 3930231 #### [facility] [address] [place] [address] Nitrite Ql (U) Negative Normal Negative [facility] Comment on above: Performed By: #### 1 9972282, 1948467 #### [facility] [address] [place] [address] pH (U) 7.0 [pH] Invalid Interpretation Code 5.0-9.0 [facility] Comment on above: Performed By: #### 1 2632446, 4227109 #### [facility] [address] [place] [address] Protein (U) [Mass/Vol] Negative Normal Negative [facility] Comment on above: Performed By: #### 1 8631340, 7380690 #### [facility] [address] [place] [address] Specific gravity (U) [Rel density] <=1.005 Invalid Interpretation Code 1.005-1.030 [facility] Comment on above: Performed By: #### 1 4776580, 1537428 #### [facility] [address] [place] [address] Type of Urine collection method Random Urine Normal [facility] Comment on above: Performed By: #### 1 2499690, 0915362 #### [facility] [address] [place] [address] Urobilinogen Qn (U) 0.2 {Amelie'U}/dL Normal 0.0-1.0 [facility] Comment on above: Performed By: #### 1 5723527, 0136916 #### [facility] [address] [place] [address] WBC Auto Ql (U) 1+ Abnormal Negative [facility] Comment on above: Performed By: #### 1 2909584, 4796500 #### [facility] [address] [place] [address] WBC LM.HPF (Urine sed) [#/Area] 0-5 Normal 0-5 [facility] Comment on above: Performed By: #### 1 6047595, 5806958 #### [facility] [address] [place] [address] eGFRon 12-27-2022 GFR/1.73 sq M.predicted among blacks MDRD (S/P/Bld) [Vol rate/Area] mL/min/{1.73_m2} Normal >=59 [facility] Comment on above: Order Comment: Order added by Discern Expert. Result Comment: eGFR is race adjusted. AA=. Performed By: #### 2 632930, 94939434, 1686024 #### [facility] [address] [place] [address] GFR/1.73 sq M.predicted among non-blacks MDRD (S/P/Bld) [Vol rate/Area] mL/min/{1.73_m2} Normal >=59 [facility] Comment on above: Order Comment: Order added by Discern Expert. Result Comment: Business Support lex kidney disease could be indicated at eGFR's of less than 60 mL/min/1.73m2. Kidney failure is indicated at less than 15 mL/min/1.73m2. Performed By: #### 2 735365, 06335407, 2386504 #### [facility] [address] [place] [address] Coding Summary.on 11-28-2022 Coding Summary. CD:[id number] Gh0bWw+PGhlYWQ+PE1FV HFtM98kvTWzsB2WR0zFQ Q8ZGCFWHVPNTJ1UVA2cj OS0QFumI7JoshTr WtwenXGnCI18MMc1HFL6 uBunOZwpyB0kdPKlJ6o6 OqCtJY36zR33SRzjNDMh XlF0MbZuedzcpNXo F9ssVaUaqVKgZin+PHRh YmxlIHdpZHRoPScxMDAl EqOmmXlsPK1lXo3gFYVd LWNvbGxhcHNlOiBj n2gaOMZnYJueUW2nhUjw C1FscAQ5WHXcp9x0Na11 dHI+XMFbBCA9yDruOZcn g314LwUae5daIFK3 fJUmZQgmYCF0C55gs4W5 VHYlFBWaTNZ3oHI5pI9z iTvtymmtQ5OezXKmDfO2 FTU3gJWhwF2mdMct iyshjK0aYbg+Q12PDD4Q WHGJAM0BPvm0W3QlAygd dHI+FK15HAMcUD73rPBh cBEcb3uuwSq5JfXr KLKiGVO4iKkjDNsyq9Lh PWYqL06uvVHmo7R9YFFc cKbstVDzSiKikPU8gU5i QAsnkpvkc7bidoxy Fpplo3lyfs88jO08V42w PJwhSYBwUFX6AHFhRWQh hRvieb0sqT9wXh7+IDxj c9ewo5udwMn4ZnMc VNLanbYnrSegISO8v5Tj Eq03E9JebMvdp5PlKkj6 hh14pBZwo2D2wML3CUgg ZGRpcK1qNZslAiD8 HFUsSrGogV31rLSqFPpa Xz2vkStgtHbkUJ4sJJDs liaeESKkcQ6qGVAexELi yVneMS0dIATheztm g414NcDbOAU3PSUpePKt A8DvbH2iCdOvVJDfCETu G7TvcPCaYVqmN571SGdh AlJ5PVRdfgFrG5Yg DIIptSnsTpG5g3V3Zu4J e9GmtijiCKR7PEvkXGBa UcT4EuTpNwV9Y0IfHvh8 PACymEwzOF8hZ9Kl RJYbchrjlsksqWS8RPSr RBQphZ12qFJvZDpnZz8y y6U2q965HAXkYBDzhH27 Pc9klGplAUStsGLF kT4klaoby6dcnwybTfQs FTMrPXu7TCo5BJCnhBgb IyDcUSZ3YvS7MRW0xWGj uQ6wbOevwxebbG4p Oyc+I64pzT3cCAJ3LEO3 ptveMDWgcdWaAV59JG72 I6AtCauqaITueKK+PGRp lrEkrRgnEW6eReNo a1pkn7NlXXncY4TtUHGw KCggOzw3JCSgFHL5kQB8 pM5vDHBvFHnbr0K4hRT6 O6YxzqCvzo1zt1uj TMYjLZpfN10rdQMto2E7 XXOaxWV8HAWwgSwqNyNf mN02Cbi+XREanSkzh1Vd Lrujl7vjv2xpgVp7 IjMwJSIgdmFsaWduPSJ0 g8YmWj39S85tITapVURj QOApYWLbAOIcbVnbup6q rJ1qKr5+PGNvbCB3 wMY0aI7bUIVpAjO1LUif M674FpKvzRMmRblsq5wi k6rjzAc4LkBlOLNabbIj lSqdSOM1q6SuMc96 M32fSShaEXHfOQYyMIPt PDZaxRhkth5avF7uEv3+ DO2ld6qjrz91dV34fWH+ BOLlYLM2bSbbMQnq HCAibS3fHHwaKfS8QNLw KaSqhJ18gGRoSNozAu5a nFpnvSmvLK5uMCUbrwrb v277YbRah9rjSHQq cATnLXxiNGL8X40wp6Q7 YWCfYJUlUNT7kBV2lD1q bGlnbjogbGVmdDsgdmVy jFxoWKuuPBkmJ544 IHRvcDsnPlBhdGllbnQg XzKiLEb8E4GdNns0FXOv fDcjHR0juQWrENezHi9x rYcnlMcxZI3wBANs xfrzd589AnDds3ngRFWc dGAgHTwwXHI9I66en0L8 BFPlELBrXIZ5yFL4cB3y bGlnbjogbGVmdDsg wfUqmGkbLQkbDOqfH241 IHRvcDsnPkJpcnRoIERh zOG9TS92RJ84gAAwe4D5 yEI0X9GvVHXxvhpt rwyvcQB1NEAmZSLgnD30 Fw8yiKuwMf6bIIZjCYG6 YGSfyFSvW2SxuR9eArJw NOKuHNSkR2ScoYFc XOppK053WSdvUgT7AOZs vfQzJ4EnXFZtlXbvJbV5 l2Z6Ii9HW2S5FX53BP66 pSPrm2W6mEV3V1Ng HKIjmkfutzbsnRJ1IUQz CCSugU34Ai3puGnjCt7x CEIxTUT4YHKrnIPlY3Tf pE7yImQnQAEaQCGq S0HmjPQkQXdjL942ONxa IqT6ACPxksJuD3YpCGFh jPmvAnZ1y5S9Jx6VGCd6 OC07UM90yJHfc9D7 fVS5C1CxAJHmdmmuncul bDD3GUDlUPPglK93Us3u fEcnHk2hNZWcVAG6GVNu tYMgL2DqlO6iOfKq JZChENKgB5CcvQGkQPxo Y030DPntFpA1KZRuufXy A3VwOQNcaNowKkI2k2Z6 Xf8IAXGeWI13OCL5 wSN0IU00RC96Z5HvNrzo dGFibGU+PHRhYmxlIHdp ZHRoPScxMDAlJyBzdHls BL8xNf8vHWQxLTPh fFsjeIQeSyNfc6hdZFQv SIduNI7cxNuaP5NlaMB7 VLQsk0b5Nf78I74kY9Rl dXA+TCAdjRI3iLB1 lB8oFwTdBtG1EBrwY112 LeWhiNFwRwwuj9kzp7fg sTr7GkB6WNHhiyQyuLci RJS1c1NoXb92L49w IHdpZHRoPSIxNSUiIHZh gJyyvp5kpU2tHo2+PGNv aOC4lDU0vX3yPvFgFfI5 NZafF638FhNzdFZp Pqbtz2obw5lvgJj3RdQw VRUhwdFmjHtsPTF7t8Aw Ok71V3ZdcWqid0EfVwt9 eo03kZJce3H1xSS6 V5FuKAChkeqthHWseHym XT0oEVKlzdvlCZKoiT8i NFIkC4e4GcJhVaB7DHao P2OjogT7DXMcbGCb ODwbIOK4S97fm3J3UUQn HUSrILT8jTD4iM9lzMop bjogbGVmdDsgdmVydGlj WShsUVqrA916LYKy pPelGZRxlS9zUYUjfSMh fWykGM7pOEQkwtcnInBM TkEsIFBBTUVMQTwvdGQ+ BABkRRO6mSucOBir QCGqxK7vWKWxO0a3MkQv QjR7SYikI1ZjZVOattav Aw72kE5lAxEeNdQ7BKji Q7MchaO2SPMgoMSr DKmaPRG4R08bq8M6MMPc LPJwNTI1rMV9aW9epYbr bjogbGVmdDsgdmVydGlj HXsnAUjlZ237EMEu bNtmKuGaKtHrBxK9EQq9 I5CbXkn9PHMkvXnhEH5k rWQvTHflGx4xeYaxiHxe JL7aULXbfhevRUVc fH4iZDWrqGDcdCfyRL2f VTLstpiqo349AxCdFSL1 REKzwDRbF6XmaQ2hPhOj OZShJTUiL6NycKJz ZYmqS254NVfoYqU0PNWi mgPbX2ApXRFwbVzqYkZ2 a8Z0In5eMCRFQZMmwhep dGQ+MFQsTBP2mYjt DUqmJXWneF9sESOqR3m0 IwRvDcB7KGrvD0YbGKCo uonuJo21rS8iBxKkXgG6 HBmbY4KpxzP6MEOl mLHoECwdHBR0R27kw3O7 XKUqIUWnCBR9nYU7uO4m bGlnbjogbGVmdDsgdmVy rZsfATfxHTajM198 IHRvcDsnPkZlbWFsZTwv dGQ+VIAcMRR5gHadVCab KLWyvY6rNJMqA3x9IwGw SoW0YCquX0LeYINd yrajJf75iR2eEbJyDaG2 TFvwY4BxkiU6QMPlkVDy LCnbDQK9H04ic4M0MUMq PNRaTLD8vNX0pQ4b bGlnbjogbGVmdDsgdmVy wOdlHTmeDOrdF699YIFw kHtjFh57mFThmYvzhlF0 Q0WwYcsilRI+PC90 VHKmPO84cABomKLap7lt bHm2RiGrWJRpWSO4dDbl HKfft2VtRXVjO78rgGCy c5D1AEJnvFqjcVYg ImHllZL3bS9kJLtzbrly h0hrhfjgOnzms1toty53 tW28J33eNEahTPNtYYAx QZFlGBCbxUunlc8o qH0tBl0+KTMooZY2lXS7 hL5iTbCcLtH7HPgbH859 ElUkwQSmCwltk7cmq9gv vOc8FwLxHTGuldZa pKwqKQP8t6QvMt52T88l IHdpZHRoPSIyMCUiIHZh wUremb5oxH7qVa8+PC9j i7yxjf51wB23dVE+ MBHqZYG9sKqvQZknAPPv kH0dOMwnUqH4NKQgSyAr iL27qUPfCLvqVd4tvKud hYfwRX7eTPKxwdgp h576JtZns1wtHUOurVSe UAbsIJU0W52ru4V7TOBf ORDdJLL6wXY0bT0liOwy bjogbGVmdDsgdmVy tUgnPAseVPwiZ573VQWo hJpzOhIiiUBwI0npsuKC HO9lToifoYV+PHRkIHN0 fWmpPZmcWPUbfN6v VPIrD4c9NbVgEkU8LIrd A7MwrvW5CQQxwBLkPVUb sNPJlB2wvjtce8dsgdea ZjXkDMYnFTx0ZYk9 HEDelIujSjBkOMK6BxV4 TQX1nRUvdX8ryQizjqmr pG8cTph+RklOOjwvdGQ+ JVWzRNG7hKvlQVbb ZRPosA7aGLUyR5c2ZlZh YpG2RVycU3XlxpJ9KQXc jYCvRATphODWeK0twixl i4lhkjzqLbVvDTDb BUk6ZWe4CNJvrEhwSuQq LDA4HxV5QXU0mOQcjK7m pBczagparB3yEvk+TVJO OjwvdGQ+PHRkIHN0 yKpvHQgkXOJtjL1eOEXy Z1g0WnQqTfZ1JBkfV4Ya lhR0TQCsaIBdQXRzbNGX mC7sjxpyg3gxjkug DdWqIOOcAGs7FLo1MAMj oIfiSdJvCLY0CiP3PHI7 jIWzkX9taQwexcvaoT1w Oyc+TLH0GTP9KF19 ZD81E0JsAgqouBGxlHD+ PHRhYmxlIHdpZHRoPScx MWIuZwAogTcaJJ9pEx8h ZGVyLWNvbGxhcHNl OiBj (more content not included)... Normal [facility] Path. Reviewon 11-25-2022 Path Review Anemia with anisocytosis, microcytes and polychromasia. Clinical correlation and iron studies are indicated to determine etiology as clinically indicated. Invalid Interpretation Code [facility] Comment on above: Order Comment: Order Added by Discern Expert. Performed By: #### 2 [id number], [id number], [id number] #### [facility] [address] [place] [address] CBC w/Indiceson 11-24-2022 Erythrocyte distribution width (RBC) [Ratio] 20.7 % High 10.9-14.2 [facility] Comment on above: Performed By: #### 2 [id number], [id number], [id number] #### [facility] [address] [place] [address] Hematocrit (Bld) [Volume fraction] 26.0 % Low 34.0-46.0 [facility] Comment on above: Performed By: #### 2 151689, [id number], [id number] #### [facility] [address] [place] [address] Hemoglobin (Bld) [Mass/Vol] 7.7 g/dL Low 12.0-16.0 [facility] Comment on above: Performed By: #### 2 957349, [id number], [id number] #### [facility] [address] [place] [address] MCH (RBC) [Entitic mass] 18.6 pg Low 27.0-34.0 [facility] Comment on above: Performed By: #### 2 857494, [id number], [id number] #### [facility] [address] [place] [address] MCHC (RBC) [Mass/Vol] 29.6 g/dL Low 31.4-36.0 [facility] Comment on above: Performed By: #### 2 546429, [id number], [id number] #### [facility] [address] [place] [address] MCV (RBC) [Entitic vol] 62.8 fL Low 80.0-100.0 [facility] Comment on above: Performed By: #### 2 328859, [id number], [id number] #### [facility] [address] [place] [address] Platelet mean volume (Bld) [Entitic vol] 6.0 fL Low 6.4-10.8 [facility] Comment on above: Performed By: #### 2 870194, [id number], [id number] #### [facility] [address] [place] [address] Platelets (Bld) [#/Vol] 484.0 E9/L Normal 150.0-500.0 [facility] Comment on above: Performed By: #### 2 290138, [id number], [id number] #### [facility] [address] [place] [address] RBC (Bld) [#/Vol] 4.1 E12/L Low 4.3-5.9 [facility] Comment on above: Performed By: #### 2 009610, [id number], [id number] #### [facility] [address] [place] [address] WBC corrected for nucl RBC Auto (Bld) [#/Vol] 8.0 E9/L Normal 4.0-11.0 [facility] Comment on above: Performed By: #### 2 897637, [id number], [id number] #### [facility] [address] [place] [address] Consent for Treatmenton Consent for Treatment [id number] #1.00CD:127 Normal [facility] HEMATOLOGYOrdered By: Eri Muñiz on 11-24-2022 Anisocytosis Ql (Bld) Present (11/24/22 1:51 PM) Normal [facility] Erythrocyte distribution width (RBC) [Ratio] 20.7 % High 10.9 - 14.2 % [facility] Hematocrit (Bld) [Volume fraction] 26.0 % Low 34.0 - 46.0 % [facility] Hemoglobin (Bld) [Mass/Vol] 7.7 g/dL Low 12.0 - 16.0 gm/dL [facility] Hypochromia Auto Ql (Bld) Present (11/24/22 1:51 PM) Normal [facility] MCH (RBC) [Entitic mass] 18.6 pg Low 27.0 - 34.0 pg [facility] MCHC (RBC) [Mass/Vol] 29.6 g/dL Low 31.4 - 36.0 gm/dL [facility] MCV (RBC) [Entitic vol] 62.8 fL Low 80.0 - 100.0 fL [facility] Microcytes Ql (Bld) Present (11/24/22 1:51 PM) Normal [facility] Morphology Beltran (Bld) [Interp] See Morphology (11/24/22 1:51 PM) Normal [facility] Platelet mean volume (Bld) [Entitic vol] 6.0 fL Low 6.4 - 10.8 fL [facility] Platelets (Bld) [#/Vol] 484.0 E9/L Normal 150. 0 - 500.0 E9/L [facility] Polychromasia LM Ql (Bld) Present (11/24/22 1:51 PM) Normal [facility] RBC (Bld) [#/Vol] 4.1 E12/L Low 4.3 - 5.9 E12/L [facility] WBC corrected for nucl RBC Auto (Bld) [#/Vol] 8.0 E9/L Normal 4.0 - 11.0 E9/L [facility] Morphon 11-24-2022 Anisocytosis Ql (Bld) Present Normal [facility] Comment on above: Order Comment: Order Added by Discern Expert. Performed By: #### 2 [id number], [id number], [id number] #### [facility] [address] [place] [address] Hypochromia Auto Ql (Bld) Present Normal [facility] Comment on above: Order Comment: Order Added by Discern Expert. Performed By: #### 2 937652, [id number], [id number] #### [facility] [address] [place] [address] Microcytes Ql (Bld) Present Normal [facility] Comment on above: Order Comment: Order Added by Discern Expert. Performed By: #### 2 087208, [id number], [id number] #### [facility] [address] [place] [address] Morphology Beltran (Bld) [Interp] See Morphology Normal [facility] Comment on above: Order Comment: Order Added by Discern Expert. Performed By: #### 2 198148, [id number], [id number] #### [facility] [address] [place] [address] Polychromasia LM Ql (Bld) Present Normal [facility] Comment on above: Order Comment: Order Added by Discern Expert. Performed By: #### 2 301037, [id number], [id number] #### [facility] [address] [place] [address] Physician Orderon 11-24-2022 Physician Order [id number]#1.00CD:127 Normal [facility] Physician Orderon 11-13-2022 Physician Order [id number]#1.00CD:127 Normal [facility] RPR with Conf Rfxon 11-03-20 Reagin Ab RPR Ql (S) Non-Reactive Invalid Interpretation Code Non Reactive [facility] Comment on above: Result Comment: Perf ormed at: [facility] [address] [id number] PhD Ethan Donis Performed By: #### 1 [id number], [id number], [id number] #### [facility] [address] [place] [address] CHEMISTRYOrdered By: SYSTEM SYSTEM on 11-02-2022 Glucose 1 Hr post 50 g glucose PO [Mass/Vol] 71 mg/dL Normal 55 - 140 mg/dL [facility] Remisol Consent for Treatmenton 10-20 Consent for Treatment [id number] #1.00CD:127 Normal [facility] Gest Scr Glu 1 Hron 11-02-20 22 Glucose [Mass/Vol] 71 mg/dL Normal 55-140 [facility] Comment on above: Result Comment: Posi tive Screen =1 HR > 140mg/dL Performed By: #### 1 [id number], [id number], [id number] #### [facility] [address] [place] [address] HEMATOLOGYOrdered By: Shay Sunshine on 11-02-2022 Hematocrit (Bld) [Volume fraction] 23.1 % Low 34.0 - 46.0 % [facility] Hemoglobin (Bld) [Mass/Vol] 7.0 g/dL Low 12.0 - 16.0 gm/dL [facility] Hct & Hgbon 11-02-2022 Hematocrit (Bld) [Volume fraction] 23.1 % Low 34.0-46.0 [facility] Comment on above: Performed By: #### 1 [id number], [id number], [id number] #### [facility] [address] [place] [address] Hemoglobin (Bld) [Mass/Vol] 7.0 g/dL Low 12.0-16.0 [facility] Comment on above: Performed By: #### 1 [id number], [id number], [id number] #### [facility] [address] [place] [address] Dipstick and Microscopicon 1 12-29-2021 Appearance (U) Cloudy Critically abnormal Clear [facility] Comment on above: Order Comment: Name Collection Type:: Clean-Voided Midstream Performed By: #### O BUDS, ADDONUAPLUS #### [facility] [address] [place] [address] [place] Bacteria,Urine None Seen Normal None Seen [facility] Comment on above: Order Comment: Name Collection Type:: Clean-Voided Midstream Performed By: #### O BUDS, ADDONUAPLUS #### [facility] [address] [place] [address] [place] Bilirubin,Urine Negative Normal Negative [facility] Comment on above: Order Comment: Name Collection Type:: Clean-Voided Midstream Performed By: #### O BUDS, ADDONUAPLUS #### [facility] [address] [place] [address] [place] Color (U) Yellow Normal Yellow [facility] Comment on above: Order Comment: Name Collection Type:: Clean-Voided Midstream Performed By: #### O BUDS, ADDONUAPLUS #### [facility] [address] [place] [address] [place] Glucose Ql (U) Normal Normal Normal [facility] Comment on above: Order Comment: Name Collection Type:: Clean-Voided Midstream Performed By: #### O BUDS, ADDONUAPLUS #### [facility] [address] [place] [address] [place] Hyaline Casts,Urine 0-8 Normal 0-8 [facility] Comment on above: Order Comment: Name Collection Type:: Clean-Voided Midstream Result Comment: PERF ORMED BY: [place] [id number] PATHOLOGIST [employer] KARLI PLAZA M.D. Performed By: #### O BUDS, ADDONUAPLUS #### [facility] [address] [place] [address] [place] Ketones Ql (U) Negative Normal Negative [facility] Comment on above: Order Comment: Name Collection Type:: Clean-Voided Midstream Performed By: #### O BUDS, ADDONUAPLUS #### [address] Leukocyte esterase Test strip Ql (U) 3+ High Negative [facility] Comment on above: Order Comment: Name Collection Type:: Clean-Voided Midstream Performed By: #### O BUDS, ADDONUAPLUS #### [place] [address] [place] Nitrite,Urine Negative Normal Negative [facility] Comment on above: Order Comment: Name Collection Type:: Clean-Voided Midstream Performed By: #### O BUDS, ADDONUAPLUS #### [place] [address] [place] Occult Blood,Urine Negative Normal Negative [facility] Comment on above: Order Comment: Name Collection Type:: Clean-Voided Midstream Result Comment: PERF ORMED BY: [place] [id number] PATHOLOGIST [employer] KARLI PLAZA M.D. Performed By: #### O BUDS, ADDONUAPLUS #### [facility] [address] [place] [address] [place] pH (U) 6.5 [pH] Normal 5.0-9.0 [facility] Comment on above: Order Comment: Name Collection Type:: Clean-Voided Midstream Performed By: #### O BUDS, ADDONUAPLUS #### [place] [address] [place] Protein,Urine Negative Normal Negative [facility] Comment on above: Order Comment: Name Collection Type:: Clean-Voided Midstream Performed By: #### O BUDS, ADDONUAPLUS #### [facility] [address] [place] [address] RBC,Urine None Seen Normal 0-4 [facility] Comment on above: Order Comment: Name Collection Type:: Clean-Voided Midstream Performed By: #### O BUDS, ADDONUAPLUS #### [address] Specificy [place],Urine 1.005 Normal 1.001-1.030 [facility] Comment on above: Order Comment: Name Collection Type:: Clean-Voided Midstream Performed By: #### O BUDS, ADDONUAPLUS #### [address] Squamous Epithelial Cell,Urine 1-2 Normal 0-2 [facility] Comment on above: Order Comment: Name Collection Type:: Clean-Voided Midstream Performed By: #### O BUDS, ADDONUAPLUS #### [address] Urobilinogen,Urine Normal Normal Normal [facility] Comment on above: Order Comment: Name Collection Type:: Clean-Voided Midstream Performed By: #### O BUDS, ADDONUAPLUS #### [address] WBC,Urine 3-4 Normal 0-4 [facility] Comment on above: Order Comment: Name Collection Type:: Clean-Voided Midstream Performed By: #### O BUDS, ADDONUAPLUS #### [address] [place] Urine Drug Screen (NO THC )on 10-28-2022 Amphetamine Screen,Urine Negative Normal Negative [facility] Comment on above: Performed By: #### O BUDS, ADDONUAPLUS #### [address] Barbiturate Screen,Urine Negative Normal Negative [facility] Comment on above: Performed By: #### O BUDS, ADDONUAPLUS #### [address] Benzodiazepines Screen,Urine Negative Normal Negative [facility] Comment on above: Performed By: #### O BUDS, ADDONUAPLUS #### [facility] [address] [place] [address] Cocaine Screen,Urine Negative Normal Negative [facility] Comment on above: Performed By: #### O BUDS, ADDONUAPLUS #### [facility] [address] [place] [address] Opiate Screen,Urine Negative Normal Negative [facility] Comment on above: Performed By: #### O BUDS, ADDONUAPLUS #### [address] Phencyclidine Screen, Urine Negative Normal Negative [facility] Comment on above: Result Comment: Thes e are unconfirmed results and should not be used for legal purposes. Drug Cut-Off Concentration: AMPH 1000 ng/mL RENEA 200 ng/mL ANA LUISA 200 ng/mL COCM 300 ng/mL OP 300 ng/mL PCP 25 ng/mL PERFORMED BY: [place] [id number] PATHOLOGIST [employer] KARLI PLAZA M.D. Performed By: #### O BUDS, ADDONUAPLUS #### [address] Amphetamine Screen Ql (U)Ord ered By: SHANIQUE Wetzel on 10-27-2022 Amphetamines Ql (U) Negative Negative [facility] Automated erythrocytes count in urine sediment (number/area)Ordered By: SHANIQUE Wetzel on 10-27-2022 RBC Auto (Urine sed) [#/Area] None seen [HPF] 0-4 [facility] Automated leukocytes count i n urine sediment (number/area)Ordered By: SHANIQUE Wetzel on 10-27-2022 WBC Auto (Urine sed) [#/Area] 3-4 [HPF] 0-4 [facility] Barbiturates [Presence] in U rineOrdered By: SHANIQUE Wetzel on 10-27-2022 Barbiturates Ql (U) Negative Negative [facility] Benzodiazepines [Presence] i n UrineOrdered By: SHANIQUE Wetzel on 10-27-2022 Benzodiazepines Ql (U) Negative Negative [facility] Bilirubin Test strip Ql (U)O rdered By: SHANIQUE Wetzel on 10-27-2022 Bilirubin Ql (U) Negative Negative [facility] Color Auto (U)Ordered By: MD FRANCES Wetzel on 10-27-2022 Color (U) Yellow Yellow [facility] Ketones Auto test strip (U) [Mass/Vol]Ordered By: SHANIQUE Wetzel on 10-27-2022 Ketones (U) [Mass/Vol] Negative Negative [facility] - Drug toxicology Ordered By: SHANIQUE Wetzel on 10-27-2022 Opiates Ql (U) Negative Negative [facility] - UrinalysisOrder ed By: SHANIQUE Wetzel on 10-27-2022 Hyaline casts LM Ql (Urine sed) 0-8 [LPF] 0-8 [facility] Nitrite Test strip Ql (U)Ord ered By: SHANIQUE Wetzel on 10-27-2022 Nitrite Ql (U) Negative Negative [facility] Phencyclidine Screen Ql (U)O rdered By: SHANIQUE Wetzel on 10-27-2022 Phencyclidine Ql (U) Negative Negative [facility] Comment on above: These are unconfirme d results and should not be used for legal purposes. Drug Cut-Off Concentration: AMPH 1000 ng/mL RENEA 200 ng/mL ANA LUISA 200 ng/mL COCM 300 ng/mL OP 300 ng/mL PCP 25 ng/mL Protein Auto test strip (U) [Mass/Vol]Ordered By: SHANIQUE Wetzel on 10-27-2022 Protein (U) [Mass/Vol] Negative Negative [facility] Specific gravity Auto test s trip (U) [Rel density]Ordered By: SHANIQUE Wetzel on 10-27-2022 Specific gravity (U) [Rel density] 1.005 1.001-1.030 [facility] Squamous epithelial cells de tection in urine sediment by light microscopyOrdered By: SHANIQUE Wetzel on 10-27-2022 Epithelial cells.squamous LM Ql (Urine sed) 1-2 [HPF] 0-2 [facility] Urine bacteria detection by automated methodOrdered By: SHANIQUE Wetzel on 10-27-2022 Bacteria Auto Ql (U) None seen None Seen [facility] Urine clarity by refractomet ry automatedOrdered By: SHANIQUE Wetzel on 10-27-2022 Clarity Refractometry automated (U) Cloudy Clear [facility] Urine cocaine detectionOrder ed By: SHANIQUE Wetzel on 10-27-2022 Cocaine Ql (U) Negative Negative [facility] Urine glucose measurement by automated test strip (mass/volume)Ordered By: COOKIE Wetzel on 10-27-2022 Glucose Auto test strip (U) [Mass/Vol] Normal mg/dL Normal [facility] Urine hemoglobin detection b y automated test stripOrdered By: SHANIQUE Wetzel on 10-27-2022 Hemoglobin Auto test strip Ql (U) Negative Negative [facility] Urine leukocyte esterase det ection by automated test stripOrdered By: SHANIQUE Wetzel on 10-27-2022 Leukocyte esterase Auto test strip Ql (U) 3+ Negative [facility] Urobilinogen Auto test strip (U) [Mass/Vol]Ordered By: SHANIQUE Wetzel on 10-27-2022 Urobilinogen (U) [Mass/Vol] Normal mg/dL Normal [facility] pH Auto test strip (U)Ordere d By: SHANIQUE Wetzel on 10-27-2022 pH (U) 6.5 [pH] 5.0-9.0 [facility] BLOOD BANKOrdered By: Tabby Milan on 06-08-2022 ABO/Rh Interp Positive Invalid Interpretation Code [facility] BB Subsection ABSC Gel Interp Negative (06/08/22 2:26 PM) Normal [facility] BB Subsection HEMATOLOGYOrdered By: Tabby Milan on 06-08-2022 Anisocytosis Ql (Bld) Present (06/08/22 2:26 PM) Normal [facility] Erythrocyte distribution width (RBC) [Ratio] 18.9 % High 10.9 - 14.2 % [facility] Hematocrit (Bld) [Volume fraction] 26.6 % Low 34.0 - 46.0 % [facility] Hemoglobin (Bld) [Mass/Vol] 8.4 g/dL Low 12.0 - 16.0 gm/dL [facility] Hypochromia Auto Ql (Bld) Present (06/08/22 2:26 PM) Normal [facility] MCH (RBC) [Entitic mass] 19.9 pg Low 27.0 - 34.0 pg [facility] MCHC (RBC) [Mass/Vol] 31.4 g/dL Normal 31.4 - 36.0 gm/dL [facility] MCV (RBC) [Entitic vol] 63.2 fL Low 80.0 - 100.0 fL [facility] Microcytes Ql (Bld) Present (06/08/22 2:26 PM) Normal [facility] Morphology Beltran (Bld) [Interp] See Morphology (06/08/22 2:26 PM) Normal [facility] Platelet mean volume (Bld) [Entitic vol] 6.6 fL Normal 6.4 - 10.8 fL [facility] Platelets (Bld) [#/Vol] 444.0 E9/L Normal 150. 0 - 500.0 E9/L [facility] RBC (Bld) [#/Vol] 4.2 E12/L Low 4.3 - 5.9 E12/L [facility] WBC corrected for nucl RBC Auto (Bld) [#/Vol] 6.9 E9/L Normal 4.0 - 11.0 E9/L [facility] HEMATOLOGYOrdered By: SYSTEM SYSTEM on 06-08-2022 Basophils/100 WBC (Bld) 0.6 % Normal 0.0 - 2.0 % [facility] Basophils/Leukocytes Auto (Bld) [Pure # fraction] 0.0 E9/L Normal 0.0 - 0.2 E9/L [facility] Eosinophils/100 WBC (Bld) 0.9 % Normal 0.0 - 8.0 % [facility] Eosinophils/Leukocytes Auto (Bld) [Pure # fraction] 0.1 E9/L Normal 0.0 - 0.5 E9/L [facility] Lymphocytes/100 WBC (Bld) 26.3 % Normal 14.0 - 50.0 % [facility] HemeAutoSS Lymphocytes/Leukocytes Auto (Bld) [Pure # fraction] 1.8 E9/L Normal 1.0 - 4.0 E9/L [facility] HemeAutoSS Monocytes/100 WBC (Bld) 4.3 % Normal 4.0 - 14.0 % [facility] HemeAutoSS Monocytes/Leukocytes Auto (Bld) [Pure # fraction] 0.3 E9/L Normal 0.2 - 1.0 E9/L [facility] HemeAutoSS Neutrophils/100 WBC (Bld) 67.9 % Normal 36.0 - 75.0 % [facility] HemeAutoSS Neutrophils/Leukocytes Auto (Bld) [Pure # fraction] 4.7 E9/L Normal 2.0 - 7.5 E9/L [facility] HemeAutoSS CHEMISTRYOrdered By: SYSTEM SYSTEM on 05-24-2022 [place] [address] m[IU]/mL High 1 - 3 mIU/mL [facility] Remisol Progesterone [Mass/Vol] 13.20 ng/mL Invalid Interpretation Code [facility] Remisol PREG QUANT HCGon 05-17-2022 HCG QUANT 5303 mIU/mL Normal [facility] Comment on above: Performed By: #### P REGQNT #### [facility] [address] [place] [address] Dr. iRchy Blankenship HCG RANGE SEE BELOW Normal [facility] Comment on above: Result Comment: 5-50 0-1 WEEK 40-300 1-2 WEEKS 100-1,000 2-3 WEEKS 500-6,000 3-4 WEEKS 5,000-200,000 1-2 MONTHS 10,000-100,000 2-3 MONTHS 3,000-50,000 2ND TRIMESTER 1,000-50,000 3RD TRIMESTER Performed By: #### P REGQNT #### [facility] [address] [place] [address] Dr. Richy Blankenship PREG QUANT HCGon 05-12-2022 HCG QUANT 822 mIU/mL Normal [facility] Comment on above: Performed By: #### P REGQNT #### [facility] [address] [place] [address] Dr. Richy Blankenship HCG RANGE SEE BELOW Normal [facility] Comment on above: Result Comment: 50 0-1 WEEK 40-300 1-2 WEEKS 100-1,000 2-3 WEEKS 500-6,000 3-4 WEEKS 5,000-200,000 1-2 MONTHS 10,000-100,000 2-3 MONTHS 3,000-50,000 2ND TRIMESTER 1,000-50,000 3RD TRIMESTER Performed By: #### P REGQNT #### [facility] [address] [address] [address] Richy Blankenship PREG QUANT HCGon 05-08-2022 HCG QUANT 116 mIU/mL Normal [facility] Comment on above: Performed By: #### P REGQNT #### [facility] [address] [place] [address] Dr. Richy Blankenship HCG RANGE SEE BELOW Normal [facility] Comment on above: Result Comment: 0-1 WEEK 40-300 1-2 WEEKS 100-1,000 2-3 WEEKS 500-6,000 3-4 WEEKS 5,000-200,000 1-2 MONTHS 10,000-100,000 2-3 MONTHS 3,000-50,000 2ND TRIMESTER 1,000-50,000 3RD TRIMESTER Performed By: #### P REGQNT #### [facility] [address] [place] [address] Dr. Richy Blankenship PREG QUANT HCGon 05-06-2022 HCG QUANT 40 mIU/mL Normal [facility] Comment on above: Performed By: #### P REGQNT ####[facility] [address] [address]Dr. Richy Blankenship HCG RANGE SEE BELOW Normal [facility] Comment on above: Result Comment: 50 0-1 WEEK 40-300 1-2 WEEKS 100-1,000 2-3 WEEKS 500-6,000 3-4 WEEKS 5,000-200,000 1-2 MONTHS 10,000-100,000 2-3 MONTHS 3,000-50,000 2ND TRIMESTER 1,000-50,000 3RD TRIMESTER Performed By: #### P REGQNT ####[facility] [address] [id number]. Richy Blankenship ED Provider Noteon 8 HIM IP Note OR [employer] Normal [facility] XR CHEST (2 VW)on 06-13-2018 XR CHEST (2 VW) REPORT: Chest, 2 views.INDICATION: Positive TB testing and 2015; checkup.FINDINGS: PA and lateral views of the chest, taken at 0944 hours, show the heart to be normal in size. There is mild blunting of the right costophrenic angle. Both costovertebral sinuses are clear, in the lateral projection. This may be due to pleural scarring at the right lateral lung base. The lung bran and left costophrenic angle are otherwise clear. There are no apparent granulomatous calcifications. There is no evidence of a pneumothorax or free air beneath the diaphragm.Final report electronically signed by Luis Tijerina on 06/13/2018 9:51 AMIMPRESSION: MILD BLUNTING OF THE RIGHT COSTOPHRENIC ANGLE, POSSIBLY DUE TO PLEURAL SCARRING. NO ACTIVE INFILTRATE OR VASCULAR CONGESTION. THERE ARE NO PRIOR CHEST X-RAYS AVAILABLE FOR COMPARISON AT THIS TIME.Interpreted by:GENESIS Burksigned by:Luis Tijerina MD06/13/18inal result Normal [facility] Vital Signs Date Time Vital Sign Value Performing Clinician Faci mariel 05-16-2023 14:38-0400 Blood Pressure Location Jose STACK [facility] 05-16-2023 14:38-0400 Diastolic blood pressure 80 mm[Hg] Jose STACK [facility] [place] 05-16-2023 14:38-0400 Heart rate 72 /min Jose STACK [facility] [place] 05-16-2023 14:38-0400 Respiratory rate 16 /min Joes STACK [facility] [place] 05-16-2023 14:38-0400 Systolic blood pressure 120 mm[Hg] Jose STACK [facility] [place] 10-28-2022 00:00-0500 Respiratory rate 16 /min MD Zachary Boyd Work Phone: [facility] 10-27-2022 23:52-0500 Body temperature 97.7 [degF] MD Zachary Boyd Work Phone: [facility] 10-27-2022 23:52-0500 Diastolic blood pressure 74 mm[Hg] MD Zachary Boyd Work Phone: [facility] 10-27-2022 23:52-0500 Heart rate 100 /min MD Zachary Boyd Work Phone: [facility] 10-27-2022 23:52-0500 Systolic blood pressure 124 mm[Hg] MD Zachary Boyd Work Phone: [facility] 10-27-2022 23:48-0500 Body height 165.1 cm MD Zachary Boyd Work Phone: [facility] 10-27-2022 23:48-0500 Body weight 71.21 kg MD Zachary Boyd Work Phone: [facility] Encounters Encounter Date Encounter Type Care Provider Facility Start: 05-16-2023 End: 05-17-2023 ambulatory Jose STACK Facility:[facility] Start: 05-16-2023 End: 05-16-2023 Patient encounter procedure Jose STACK [facility] Start: 04-14-2023 ambulatory Zachary Boyd Facility:[facility] Start: 04-04-2023 End: 04-05-[address] MADDIE TREJO Facility: Start: 04-01-2023 End: 04-02-2023 ambulatory VENITA TREVIÑO Facility:[facility] Start: 12-27-2022 End: 12-31-2022 Evaluation and management of inpatient Danis Garcia Facility:[facility] Start: 11-24-2022 End: 11-25-2022 ambulatory Danis Garcia Facility:[facility] Start: 11-24-2022 End: 11-24-2022 Patient encounter procedure Danis Garcia [facility] Start: 11-02-2022 End: 11-03-2022 ambulatory Danis Garcia Facility:[facility] Start: 11-02-2022 End: 11-02-2022 Patient encounter procedure Danis Garcia [facility] Start: 10-28-2022 End: 10-28-2022 ambulatory Zachary Boyd Facility:[facility] Start: 10-27-2022 End: 10-28-2022 ambulatory MD Zachary Boyd Work Phone: [facility] Work Phone: Start: 10-27-2022 End: 10-28-2022 Patient encounter procedure MD Zachary Boyd Work Phone: [facility] Labor - O/P Start: 06-08-2022 End: 06-08-2022 Lab Drop off Danis Garcia [facility] Start: 06-08-2022 End: 06-08-2022 Patient encounter procedure Danis Garcia [facility] Start: 05-24-2022 End: 05-24-2022 Patient encounter procedure Danis Garcia [facility] Start: 05-08-2022 End: 05-09-[address] DOCTOR RODRIGUEZ Facility:[facility] Start: 05-06-2022 End: 05-20-[address] ZACHARY BOYD . Facility:[facility] Start: 07-30-2018 End: 07-30-2018 Emergency department patient visit ZACHARY Poncho WESLEY [facility] Start: 06-13-2018 End: 06-16-2018 Patient encounter HAILEY Marisel [place] [facility] Start: 02-08-2018 End: 02-09-2018 Ambulatory DEFAULT PHYSICIAN Facility:[facility] Procedures Date Procedure Procedure Detail Performing Clinician Start: 06-13-2018 Radiologic exam ches t 2 views [place]LEY [place] section Jose NIL L H/O: surgery History of rever isamar of tubal ligation Danis Garcia Ligation of fallopia n tube Jose MORALESSixto Open reversal of fem joel sterilization Jose MORALESSixto Plan of Treatment Date Care Activity Detail Author Start: 10-27-2022 Hospital admission [facility] Start: 10-27-2022 End: 10-28-2022 [facility] Patient Education Antepartum Dis charge Instructions ([facility]) [facility] Work Phone: Patient referral [facility] Work Phone: Immunizations Immunization Date Immunization Notes Care Provider Lloyd wellington 12-30-2022 tetanus toxoid, redu montez diphtheria toxoid, and acellular pertussis vaccine, adsorbed Jose BETTYE [facility] Comment on above: Reason for Medicatio n: Other (see comment) 10-17-2021 SARS-CoV-2 (COVID-19 ) mRNA-1273 vaccine Jose MORALESSixto [facility] [place] 10-03-2021 tetanus toxoid, redu montez diphtheria toxoid, and acellular pertussis vaccine, adsorbed MD Zachary Boyd Work Phone: [facility] Payers Date Payer Category Payer Self-pay [id number] 2018 Unknown [id number] 1985 Unknown [id number] 2.16.84 [id number] 1985 Unknown [id number] 2.16.84 [id number] 1987 Unknown [id number] 2.16.84 [id number] 1987 Unknown [id number] 2.16.84 [id number] 1987 Unknown [id number] 2.16.8 [id number] 1987 Unknown [id number] 2.16.8 [id number] 1987 Unknown [id number] 2.16.8 [id number] 1987 Unknown [id number] 2.16.8 [id number] 1987 Unknown [id number] 2.16.8 [id number] 1987 Unknown [id number] 2.16.8 [id number] 1957 Medicaid [id number] 1957 Medicaid [id number] Medicaid [place] [employer] [id number] 501 [id number] Unknown Unknown [id number] 2.16.8 [id number] Social History Date Type Detail Facility Tobacco smoking status No Smokin g Status Entered [facility] Sex Assigned At Female [facility] Start: 10-03-2021 Tobacco smoking stat NHIS Smoker (finding) [facility] Start: 1985 Sex Assigned At Female [facility] Tobacco smoking status No Smokin g Status Entered [facility] Start: 05-16-2023 Tobacco smoking status Ex-smoker (fi nding) [facility] Tobacco smoking status Smokeless tobacco user within last 30 days [facility] [place] Functional Status Date Assessment Result Facility 05-16-2023 Functional Status N/A [facility] [place] Clinical Notes 06-08-2022 to 05-22-2023 Note Date & Type Note Facility 05-22-2023 Note Chief Complaint consultation for abdominal pain HPI Staff 37 year old female presents on consultation from Dr. Boyd for abdominal pain. Reports burning, squeezing epigastric pain since March. Pain will last for several minutes and resolve spontaneously. This happens multiple times per day. She reports daily nausea and vomiting. Several day history of loose stools. Protonix 40mg daily started 04/14; patient never started this. CT ABD/pelvis completed 04/01 with cholelithiasis and mild wall thickening. RUQ US completed 04/04- negative. History of Present Illness 37 yo female with h/o Hepatitis C, not treated, heroin abuse, now on Vivitrol; referred for abnormal abd ct scan; patient with intermittent epigastric/upper abd for past 6 weeks; squeezing/burning pain that lasts several minutes, then resoles; frequent nausea, occasional emesis; had loose stools, now resolved; given Protonix script, but has not started it; abd/pelvic ct scan 04/01/23 with contracted gallbladder, no inflammatory changes; images reviewed; GB US wnl, no wall thickening, no stones or sludge, no ductal dilation; no h/o jaundice or pancreatitis; abd operations significant for c-sections, tubal and tubal reversal; vapes tobacco containing substances; no fmhx of GI malignancy or IBD. Review of Systems PHQ Score Initial Depression Screen Score: 0 ROS - Provider Constitutional: no fever, no sweats, no weight loss. Eyes: no glasses, no blurred vision, no visual loss. ENMT: no dentures, no hoarseness, no swallowing difficulties, no hearing loss, no ear infection(s), no nose bleeds. Cardiovascular: normal blood pressure, no chest pain, regular heartbeat, no heart murmur. Respiratory: no shortness of breath, no cough, no asthma, no wheezing. Gastrointestinal: no nausea, no vomiting, no diarrhea, no constipation, no blood in stool, no change in bowel habits, no abdominal pain, no hepatitis. Genitourinary: no kidney stones, no urine infection, no dysuria. Musculoskeletal: no pain, no weakness. Skin: no changing moles, no rash, no skin lumps. Neurologic: no seizures, no epilepsy, no headache. Psychiatric: no emotional or psychiatric problem. Heme/Lymph: no bleeding problems, no anemia, no blood clots, no transfusions. Allergy/Immunologic: no swollen lymph nodes/glands, no IV drug abuse. Other: Additional ROS info: Except as noted in the above Review of Systems and in the History of Present Illness, all other systems have been reviewed and are negative or noncontributory. Physical Exam Vitals & Measurements HR: 72(Peripheral) RR: 16 BP: 120/80 HT: 63 in HT: 160 cm WT: 61.8 kg WT: 135.96 lb BMI: 24.14 HEENT: normal conjunctiva, sclera clear, no scleral icterus, EOM intact, PERRLA, oral mucosa moist without lesions. Neck: trachea midline, no mass, symmetric, no thyromegaly or nodules, no adenopathy Respiratory: lungs CTA, respirations non labored. Cardiovascular: regular rate and rhythm, no murmur, no pedal edema or varicosities. Gastrointestinal: soft, non distended, no tenderness, no masses, no palpable hernias, diastasis recti no, no hepatosplenomegaly; normal bs Lymphatic: no cervical adenopathy, no supraclavicular adenopathy. Musculoskeletal: normal gait, digits and nails without infection, nodes, cyanosis, clubbing. Skin: no rashes, no lesions, no ulcers, no subcutaneous nodules, induration. Psychiatric/Neuro: oriented to time, place, person, judgement normal, affect appropriate for age, insight intact, no focal deficits. Tests: labs reviewed, x-rays reviewed, review of old records completed, Assessment/Plan 1. Epigastric pain (R10.13: Epigastric pain) begin Protonix daily; possible GERD or gastritis; if symptoms persist after treatment, may require EGD; recommend gastroenterology evaluation for treatment of Hepatitis C, which may be contributing to symptoms; also may be side effects of Vivitrol; call with problems/questions. 2. Nausea (R11.0: Nausea) see # 1 3. Hepatitis C (B19.20: Unspecified viral hepatitis C without hepatic coma) see # 1 Follow-up No qualifying data available Problem List/Past Medical History Ongoing Advanced maternal age in multigravida BMI 24.0-24.9, adult Depression Epigastric pain Fibrocystic breast disease Hepatitis C History of heroin use HPV in female Nausea Psychotic disorder Historical Procedure/Surgical History section, section, section, section, section, Open reversal of tubal ligation, Tubal ligation. Medications ibuprofen 600 mg Tab, 600 mg= 1 tab(s), Oral, q6hr Protonix 40 mg Tab-DR, 40 mg= 1 tab(s), Oral, Daily Vivitrol 380 mg intramuscular injection, extended release Allergies No Known Allergies Social History Alcohol - Denies Alcohol Use, 12/27/2022 Substance Abuse - Denies Substance Abuse, 12/27/2022 Tobacco Former smoker, quit more than 30 days ago Tobacco Use:. Smoke (more content not included)... [facility] Comment on above: Result Comment: Elec tronically Signed By: BETTYE MATA, Jose Oden\Date and Time Signed: 05/22/23 12:33 EDT 12-31-2022 Note DATE OF DISCHARGE: 0 12/30/2022 DISCHARGE DIAGNOSIS: Status post repeat low transverse section. BRIEF HISTORY AND HOSPITAL COURSE: The patient is a 37-year-old 5, para 4 female who presented to Labor and Delivery with spontaneous rupture of membranes for several days prior. She just presented. She had missed several of her last visits. She did have an ultrasound in my office which revealed low biophysical profile and was sent immediately to Labor and Delivery. She had a reactive non-stress test. His AmniSure was positive. She had minimal fluid on ultrasound. The was small for gestational age. had otherwise been complicated by previous history of section x4, advanced maternal age, history of hepatitis, history of drug use in the past, severe anemia. She was made ready for the Operative Suite. She underwent a repeat low transverse section, weighing 4 pound 4 ounce male with Apgars of 8 and 9. Handed off to Dr. Carver who was in attendance for the delivery without complication. Postoperatively the patient had been followed for prolonged rupture of membranes. The patient did well with normal bowel and bladder function resuming, ability to ambulate and tolerate a regular diet and on the third postoperative day the patient was ready for discharge. At that time, the patient had no major complaints. Her vital signs were stable. She was afebrile. Lungs were clear. Abdomen was soft, nontender, positive bowel sounds. Uterus was firm down below the umbilicus. Incision was clean, dry and intact. Extremities were nontender. She was ready for discharge. She was discharged home with good home going instructions with Motrin for pain, vitamins, iron to call for any problems, to see me back in the office in two weeks for incision check and six weeks for regular postoperative check. She was discharged home in stable condition. Danis Garcia M.D. tristan Dictated: 12/30/2022 [id number] Transcribed: 12/30/2022 [facility] Comment on above: Result Comment: Elec tronically Signed By: Jose MATA, Danis Stratton\.br\Date and Time Signed: 12/31/22 10:06 EST 12-31-2022 Note The following Patien t Education Materials have been given to the patient: EducationMaterial [facility] 12-29-2022 Note HOSPITAL REGULATIONS : All Positive and Important Negative Findings Shall Be Recorded DATE ADMITTED: 12/27/2022 ADMITTING DIAGNOSIS: Intrauterine at 37 weeks gestation, spontaneous rupture of membranes, previous history of section x4, previous history of tubal reversal. HISTORY OF PRESENT ILLNESS: The patient is a 36-year-old 5, para 4, AB 0 female who presented to Labor and Delivery with spontaneous rupture of membranes. This was confirmed with AmniSure. She had a previous history of section x4 with a tubal reversal. She had history of hepatitis C. She had advanced maternal age. She had hemoglobin problems with a hemoglobin of 7.7 with anemia despite iron therapy. With her ruptured membranes, she had been sent from my office to Labor and Delivery for evaluation and repeat section. She had already appropriately signed consent forms and being made ready for the Operative Suite. PAST MEDICAL HISTORY: Allergies: No known allergies. Medications: Vitamins and iron. Illnesses: Advanced maternal age, history of drug use in the past, history of hepatitis C. Surgeries: section x4, tubal reversal in 2021. FAMILY HISTORY: Noncontributory. PSYCHOSOCIAL HISTORY: Vapes, she quit smoking recently. REVIEW OF SYSTEMS: Spontaneous rupture of membranes several days ago. PHYSICAL EXAMINATION: GENERAL: A well-developed, well-nourished, white female in no acute distress. VITAL SIGNS: Afebrile, pulse 80, respirations 18, blood pressure 102/60. HEAD AND E.E.N.T.: Normocephalic. Extraocular muscles intact. The pupils equal and responsive to light and accommodation. Nose and throat clear. NECK: Without masses. Without thyromegaly. LUNGS: Clear to auscultation and percussion. HEART: Regular rate and rhythm. BREASTS: Nonpathologic. ABDOMEN: Soft, nontender, gravid. Reactive non-stress test. Small for gestational age. EXTREMITIES: Negative for clubbing, cyanosis or edema. PELVIC: Spontaneous rupture of membranes, 1 cm dilatation, 50%. IMPRESSION: Intrauterine at term, 37 weeks gestation, with spontaneous rupture of membranes with small for gestational age infant for repeat section. Danis Garcia M.D. Dictated: 12/27/2022 [id number] Transcribed: 12/28/2022 [facility] Comment on above: Result Comment: Elec tronically Signed By: Jose MATA, Danis Stratton\.br\Date and Time Signed: 12/29/22 07:09 EST 11-24-2022 Evaluation + Plan note Diagnostic Tests PendingPath. Review 11/24/22 [facility] 11-02-2022 Evaluation + Plan note Diagnostic Tests PendingRPR with Conf Rfx 11/02/22 [facility] 06-08-2022 Evaluation + Plan note Diagnostic Tests PendingRPR with Conf Rfx 06/08/22HIV Screen 4th Generation wRfx 06/08/22Rubella Antibody IgG 06/08/22Urine Culture 06/08/22Hepatitis B Surface Antigen 06/08/22HCV Antibody RFX to Quant PCR 06/08/22 [facility] 06-08-2022 Evaluation + Plan note Diagnostic Tests PendingUrine Culture 06/08/22PAP [id number] IG Apt HPV,rfx 16/18,45 06/08/22 [facility] Evaluation + Plan note No data available for this section [facility] Evaluation note No assessment inform ation available [facility] Work Phone: Hospital Discharge instructions No data available for this section [facility] Progress note No data available for this section [facility] Summary Purpose Family History No Family History Records FoundNo Family History Records FoundNo Family History Records FoundNo Family History Records FoundNo Family History Records Found Advance Directives No Advanced Directives Records Found Advance Directive Response Recorded Date/ Time Advance Directives No November 23, 2017 8:56am Chief Complaint and Reason for Visit Chief Complaint IUP (Intrauterine Pr egnancy) Additional Source Comments INFORMATION SOURCE (unrecogn ized section and content) DATE CREATED AUTHOR 05/11/2018 [facility] DATE CREATED AUTHOR AUTHOR'S ORGANIZ ATION 08/10/2018 [facility] DATE CREATED AUTHOR AUTHOR'S ORGANIZ ATION 11/11/[address] [facility] DATE CREATED AUTHOR AUTHOR'S ORGANIZ ATION 04/05/2023 [facility] DATE CREATED AUTHOR AUTHOR'S ORGANIZ ATION 07/28/2023 [facility] Care Teams (unrecognized sec tion and content) Personnel Name: Zachary Boyd MD Address: Address: [address] [place], [place] [address] Team Status: Inactive Member Role Status Dates Zachary Boyd MD Primary Care Provider Active Danis Garcia MD Attending Provider Active Team Status: Active Member Role Status Dates Zachary Boyd MD Primary Care Provider Active Goals (unrecognized section and content) Goals may be documented in a n alternate section FOR RECORDS PERTAINING TO PATIENTS WHO ARE OR HAVE BEEN ENROLLED IN A CHEMICAL DEPENDENCY/SUBSTANCEABUSE PROGRAM, SOME INFORMATION MAY BE OMITTED. This clinical summary was aggregated from multiple sources. Caution should be exercised in using it in the provision of clinical care. This summary normalizes information from multiple sources, and as a consequence, information in this document may materially change the coding, format and clinical context of patient data. In addition, data may be omitted in some cases. CLINICAL DECISIONS SHOULD BE BASED ON THE PRIMARY CLINICAL RECORDS. [email or web address] provides no warranty or guarantee of the accuracy or completeness of information in this document.
[2023-12-27 12:33] LABS: Basophils Percent Auto 0.4 % (0.2-2.0); Eosinophils Percent Auto 0.4 % (0.9-7.0); Hematocrit 42.8 % (36.0-48.0); Hemoglobin 13.8 g/dL (12.0-16.0); Immature Granulocytes Abs Auto 0.02 10^3/uL (0.00-0.03); Immature Granulocytes Pct Auto 0.3 % (0.0-0.5); Lymphocytes Absolute Auto 2.3 10^3/uL (1.2-3.8); Lymphocytes Percent Auto 31.1 % (20.5-60.0); Mean Corpuscular HGB Conc 32.2 g/dL (29.9-35.2); Mean Corpuscular Hemoglobin 26.9 pg (26.7-34.0); Mean Corpuscular Volume 83.4 fL (81.0-99.0); Monocytes Absolute Auto 0.7 10^3/uL (0.3-0.8); Monocytes Percent Auto 8.7 % (1.7-12.0); Neutrophils Absolute Auto 4.4 10^3/uL (1.4-6.5); Neutrophils Percent Auto 59.1 % (43.0-75.0); Platelet Count 369 10^3/uL (150-450); Red Blood Count 5.13 10^6/uL (4.20-5.40); Red Cell Distribution Width 20.6 % (11.0-15.0); White Blood Count 7.5 10^3/uL (4.0-11.0)
[2023-12-27 13:10] LABS: Alanine Aminotransferase 16 U/L (14-59); Albumin Globulin Ratio 0.6; Albumin Level 3.8 g/dL (3.4-5.0); Alkaline Phosphatase 118 U/L (46-116); Amylase 35 U/L (25-115); Anion Gap 11.3; Aspartate Amino Transferase 61 U/L (15-37); BUN Creatinine Ratio 22.1; Bilirubin Total 0.6 mg/dL (0.2-1.0); Calcium 9.7 mg/dL (8.5-10.1); Carbon Dioxide 29.1 mmol/L (21.0-32.0); Chloride 85 mmol/L (98-107); Estimated GFR (African America 49 (>=60); Estimated GFR (Non-African Ame 41 (>=60); Free T3 2.84 pg/mL (2.18-3.98); Globulin 6.2 g/dL; Glucose 118 mg/dL (74-106); Thyroid Stimulating Hormone 0.438 uIU/mL (0.358-3.740)
[2023-12-27 13:23] LABS: Bilirubin Urine MODERATE (NEGATIVE); Blood Urine MODERATE (NEGATIVE); Clarity Urine CLEAR (CLEAR); Color Urine DK. YELLOW (YELLOW); Glucose Urine UA NEGATIVE (NEGATIVE); Ketones Urine NEGATIVE (NEGATIVE); Leukocyte Esterase Urine MODERATE (NEGATIVE); Nitrite Urine NEGATIVE (NEGATIVE); Protein Urine 30 mg/dL (NEG/TRACE); Specific Gravity Urine 1.015 (1.005-1.025); Urobilinogen Urine 0.2 EU/dL (0.2-1.0)
[2023-12-27 13:32] LABS: Bacteria Urine MODERATE #/HPF (NONE SEEN); Mucus Urine NONE SEEN (NONE SEEN); Squamous Epithelial Cell Urine MANY #/LPF (NONE/RARE); WBC Urine 20-50 #/HPF (NONE SEEN)
[2023-12-27 13:33] LABS: Potassium 2.4 mmol/L (3.5-5.1); Sodium 123 mmol/L (136-145)
[2023-12-27 13:33] LABS: Urine Culture Indicated ALREADY ORDERED
== END 2023-12-27 11:55 | disposition home or self-care (01) ==
LOC: LAB 11:54
PROVIDERS: PCP Family Medicine; Visit Provider Family Medicine
DX: E86.0 Dehydration (principal); F11.10 Opioid abuse, uncomplicated; D64.9 Anemia, unspecified; E55.9 Vitamin D deficiency, unspecified
CPT/HCPCS: 36415; 80053; 81001; 82150; 82306; 83540; 83690; 84436; 84443; 84481; 85025; 87086; 87150; 87186

== ENCOUNTER 2023-12-27 15:21 | Observation (INO) | payer BC, OTHER, SELFPAY ==
[2023-12-27] VITALS (16 sets, daily range): BP systolic 99–119; BP diastolic 68–84; PULSE 81–126; RESP 13–25; TEMP 36.4–36.5; O2SAT 92–100; BMI 23.2; BMI 23.3
--- NOTE | 2023-12-27 15:30 | ECG_ITS ---
[facility] Test Date: 2023-12-27 Pat Name: BETSY FERRERA Department: Room: [facility] Gender: Female [employer]: : 1985 Requested By: ZACHARY OLSON Order Number: [id number] Reading MD: ZACHARY OLSON Measurements Intervals [place] Rate: 99 P: 76 [place]: 144 QRS: 80 QRSD: 88 T: 46 QT: 372 QTc: 428 Interpretive Statements 1100 Sinus rhythm [address] depression [address] & [place] abnormality 9150 abnormal ECG Compared to ECG 12/05/2023 18:30:52 ST (T wave) deviation now present Sinus tachycardia no longer present Electronically Signed On 12-28-2023 5:35:39 EST by ZACHARY OLSON
[2023-12-27 16:09] LABS: Basophils Percent Auto 0.3 % (0.2-2.0); Eosinophils Percent Auto 0.1 % (0.9-7.0); Hematocrit 39.8 % (36.0-48.0); Hemoglobin 13.1 g/dL (12.0-16.0); Immature Granulocytes Abs Auto 0.03 10^3/uL (0.00-0.03); Immature Granulocytes Pct Auto 0.3 % (0.0-0.5); Lymphocytes Absolute Auto 1.9 10^3/uL (1.2-3.8); Lymphocytes Percent Auto 19.9 % (20.5-60.0); Mean Corpuscular HGB Conc 32.9 g/dL (29.9-35.2); Mean Corpuscular Hemoglobin 26.8 pg (26.7-34.0); Mean Corpuscular Volume 81.6 fL (81.0-99.0); Mean Platelet Volume 9.3 fL (9.5-13.5); Monocytes Absolute Auto 0.6 10^3/uL (0.3-0.8); Monocytes Percent Auto 6.3 % (1.7-12.0); Neutrophils Percent Auto 73.1 % (43.0-75.0); Platelet Count 444 10^3/uL (150-450); Red Blood Count 4.88 10^6/uL (4.20-5.40); Red Cell Distribution Width 20.4 % (11.0-15.0); White Blood Count 9.6 10^3/uL (4.0-11.0)
[2023-12-27 16:23] LABS: Alanine Aminotransferase 16 U/L (14-59); Albumin Globulin Ratio 0.6; Albumin Level 3.9 g/dL (3.4-5.0); Alkaline Phosphatase 123 U/L (46-116); Anion Gap 13.2; Aspartate Amino Transferase 63 U/L (15-37); BUN Creatinine Ratio 22.4; Bilirubin Total 0.7 mg/dL (0.2-1.0); Calcium 9.5 mg/dL (8.5-10.1); Chloride 85 mmol/L (98-107); Estimated GFR (African America 54 (>=60); Estimated GFR (Non-African Ame 45 (>=60); Globulin 6.4 g/dL; Glucose 117 mg/dL (74-106); Sodium 125 mmol/L (136-145); Total Protein 10.3 g/dL (6.4-8.2)
[2023-12-27 16:28] LABS: Potassium 2.2 mmol/L (3.5-5.1)
--- NOTE | 2023-12-27 16:28 | ED.GENADUL1 ---
HPI - General Adult General Chief complaint: Recheck/Abnormal Lab/Rx Stated complaint: Abdominal Labs Time Seen by Provider: 12/27/23 15:30 Source: patient Mode of arrival: walk-in Limitations: no limitations History of Present Illness HPI narrative: 38-year-old female presents to the emergency department with mother after being sent by primary care provider's office for low sodium and potassium. Patient states she has had these problems in the past without evident etiology. Patient reports 1 week history of generalized abdominal discomfort, nausea, vomiting, and diarrhea. Denies any fever, chills. Quality:?ache, cramp Severity:?moderate Timing:?As above, constant, ongoing Context: Normal setting and activity? Modifying factors:?Abdominal pain worse with Associated symptoms: As above Related Data Home Medications Medication Instructions Recorded Confirmed hyoscyamine sulfate 0.125 mg 0.125 mg sublingual Q6H PRN pain 12/27/23 12/27/23 sublingual tablet promethazine 25 mg tablet 25 mg PO Q6H PRN nausea and 12/27/23 12/27/23 vomiting Previous Rx's Medication Instructions Recorded pantoprazole 40 mg tablet,delayed 40 mg PO DAILY #7 tabs 12/05/23 release (Protonix) Allergies Allergy/AdvReac Type Severity Reaction Status Date / Time No Known Drug Allergies Allergy Verified 12/05/23 18:30 Review of Systems ROS Narrative CONST: + fatigue. Denies any fever, chills HENT: Denies any congestion, sore throat RESP: Denies any cough, shortness of breath CV: Denies any chest pain, peripheral edema GI: +abd pain, nausea, vomiting, diarrhea : + flank pain, decrease urine output. Denies any dysuria MS: Denies any back pain, myalgias SKIN: Denies any color change, rash NEURO: Denies numbness, weakness PSYCHIATRIC: Denies confusion, agitation [facility] History (Updated 12/27/23 @ 17:17 by Kaylyn Villela) Hepatitis C ?B19.20 - Unspecified viral hepatitis C without hepatic coma (ICD-10) Family History (Updated 12/27/23 @ 17:18 by Kaylyn Villela) Father Family history of myocardial infarction Family history of hypertension Grandfather Family history of diabetes mellitus Mother Family history of hypertension Social History (Updated 12/27/23 @ 17:21 by Kaylyn Villela) Within the past year, how often did you have a drink containing alcohol: monthly or less Within the past year, how often did you have six or more drinks on one occasion: never Smoking status: Light tobacco smoker Non-prescribed substance use: denies use Non-prescribed substance use details: clean 4 years Previous occupational history: unemployed Highest level of school completed/degree received: high school graduate Are you now , , , , never or living with a partner: never Little interest or pleasure in doing things: not at all Feeling down, depressed, or hopeless: not at all Feel stressed/tense/nervous/anxious/difficulty sleeping: only a little Do you think of yourself as: straight/heterosexual Exam Narrative Exam Narrative: Vital signs reviewed Nurses notes noted CONST: Nontoxic, well appearing, well nourished, in no distress.? No diaphoresis.?? HENT: normocephalic, atraumatic, moist mucous membrane, no abnormalities of the nose noted, hearing normal EYES: normal appearing conjunctiva, no apparent discharge bilat NECK: normal appearance CV: normal rate, regular rhythm, no murmur RESP: normal effort, speaking in complete sentences. Lung sounds clear and equal bilat.? No wheezes, rales, rhonchi GI: soft, no distension, Diffuse tenderness without rebound or guarding. : no CVA tenderness MS: no edema, tenderness SKIN: no pallor NEURO: A&Ox 3, no focal findings PSYCH: normal mood, affect Constitutional Vital Signs, click to edit/add: Last Vital Signs Temp 97.6 F 12/27/23 17:25 Pulse 84 12/27/23 17:25 Resp 20 12/27/23 17:25 BP 119/84 12/27/23 17:25 Pulse Ox 97 12/27/23 17:25 O2 Del Method Room Air 12/27/23 17:25 Course Vital Signs Vital signs: Vital Signs Temperature 97.5 F L 12/27/23 15:26 Pulse Rate 126 H 12/27/23 15:26 Respiratory Rate 20 12/27/23 15:26 Blood Pressure 100/68 12/27/23 15:26 Pulse Oximetry 100 12/27/23 15:26 Temperature 97.6 F 12/27/23 17:25 Pulse Rate 84 12/27/23 17:25 Respiratory Rate 20 12/27/23 17:25 Blood Pressure 119/84 12/27/23 17:25 Pulse Oximetry 97 12/27/23 17:25 Oxygen Delivery Method Room Air 12/27/23 17:25 Medical Decision Making MDM Narrative Medical decision making narrative: This is a pleasant 38-year-old female who presented to the emergency department with mother with 1 week history of nausea, vomiting, diarrhea, generalized abdominal discomfort. Had outpatient lab testing done today that showed hyponatremia and hypokalemia. On arrival, afebrile, tachycardic, otherwise vital signs stable. On exam, nontoxic, ill-appearing patient in no gross distress. Abdomen soft with generalized tenderness. No other remarkable findings. Labs reveal potassium of 2.2, sodium of 125. Patient was hydrated, given oral and IV potassium. Hyponatremia, hypokalemia, dehydration favored based on history, physical, laboratory testing. Less likely acute abdomen based on history and physical exam Patient otherwise remained stable during ED course. Patient was discussed with her primary care provider, Dr. Boyd who will admit patient for further care and treatment. Medical Records Medical records reviewed: Yes I reviewed the patient's medical records Lab Data Lab results reviewed: Yes I reviewed the patient's lab results Labs: Lab Results 12/27/23 Range/Units 15:54 WBC 9.6 (4.0-11.0) 10^3/uL RBC 4.88 (4.20-5.40) 10^6/uL Hgb 13.1 (12.0-16.0) g/dL Hct 39.8 (36.0-48.0) % MCV 81.6 (81.0-99.0) fL MCH 26.8 (26.7-34.0) pg MCHC 32.9 (29.9-35.2) g/dL RDW 20.4 H (11.0-15.0) % Plt Count 444 (150-450) 10^3/uL MPV 9.3 L (9.5-13.5) fL Neut % (Auto) 73.1 (43.0-75.0) % Lymph % (Auto) 19.9 L (20.5-60.0) % [place] % (Auto) 6.3 (1.7-12.0) % Eos % (Auto) 0.1 L (0.9-7.0) % Baso % (Auto) 0.3 (0.2-2.0) % Neut # (Auto) 7.0 H (1.4-6.5) 10^3/uL Lymph # (Auto) 1.9 (1.2-3.8) 10^3/uL [place] # (Auto) 0.6 (0.3-0.8) 10^3/uL Eos # (Auto) 0.0 (0.0-0.7) 10^3/uL Baso # (Auto) 0.0 (0.0-0.1) 10^3/uL Abs Immat Gran (auto) 0.03 (0.00-0.03) 10^3/uL Imm/Tot Granulo (auto) 0.3 (0.0-0.5) % Sodium 125 L (136-145) mmol/L Potassium 2.2 L* (3.5-5.1) mmol/L Chloride 85 L (98-107) mmol/L Carbon Dioxide 29.0 (21.0-32.0) mmol/L Anion Gap 13.2 BUN 30.0 H (7.0-18.0) mg/dL Creatinine 1.34 H (0.55-1.02) mg/dL Est GFR ( Amer) 54 L (>=60) Est GFR (Non-Af Amer) 45 L (>=60) BUN/Creatinine Ratio 22.4 Glucose 117 H (74-106) mg/dL Calcium 9.5 (8.5-10.1) mg/dL Magnesium 2.0 (1.8-2.4) mg/dL Total Bilirubin 0.7 (0.2-1.0) mg/dL AST 63 H (15-37) U/L ALT 16 (14-59) U/L Alkaline Phosphatase 123 H (46-116) U/L Total Protein 10.3 H (6.4-8.2) g/dL Albumin 3.9 (3.4-5.0) g/dL Globulin 6.4 g/dL Albumin/Globulin Ratio 0.6 ECG Data Attestation: I personally reviewed and interpreted this ECG as follows: (EKG performed at 1530 hrs. reveals sinus rhythm at [address] elevation. Nonspecific ST changes. No other additional acute findings noted.) Discharge Plan Discharge Chief Complaint: Recheck/Abnormal Lab/Rx Clinical Impression: Hypokalemia, Acute dehydration, Acute hyponatremia Patient Disposition: Admitted as Observation Time of Disposition Decision: 16:09 Condition: Good
[2023-12-27] MEDS: POTASSIUM CHLORIDE 10 MEQ ER TABLET 40 MEQ PO (16:37)
[2023-12-27] MEDS: 0.9 % SODIUM CHLORIDE 1,000 ML 999 ML IV ×2 (16:38→19:49)
[2023-12-27] MEDS: POTASSIUM CHLORIDE 40 MEQ IN 0.9%NACL 1,000 ML 200 MEQ IV (16:39)
--- OUTSIDE RECORDS SUMMARY | 2023-12-27 17:26 | XMS_ITS | CCD ---
Author Name Unknown Address [address] [place] [address] Organization [facility] Care Team Providers Care Vice President Diversity Name Role Phone PHYSICIAN, DEFAULT Unavailable Unavailable PHYSICIAN, DEFAULT Unavailable Unavailable [place] Unavailable Unavailable ZACHARY BOYD Unavailable Unavailable ZACHARY BOYD Unavailable Unavailable YUKO DENTON Unavailable Unavailable NONE, XXXX Primary Care Physician Unavailab MD Zachary Barth Primary Care Provider [phone] MD Danis Garcia Attending Provider Zachary Boyd Primary Care Physician Zachary Boyd Primary Care Unavailable Danis Garcia [...] Care Unavailable VENITA TREVIÑO Consulting Unavailable DR ZACHAYR GARAY Primary Care Unavailable ELISC, DR MCKEON [...] q6hr, # 15 tab(s), Refills(s) 0, Pharmacy: [facility]/pharmacy #[id number], 152.4, cm, 12/27/22 16:20:00 EST, Height/Length [...] Correspondence Off iceon 07-27-2023 Insurance Correspondence Office [id number] #1.00CD:127 Normal [facility] Facesheeton 05-17-2023 Facesheet [id number] #1.00CD:127 Normal [facility] Ambulatory Visit Summaryon 0 05-16-2023 Ambulatory Visit [...] you are no longer receiving treatment for. [facility] Provider Letteron 05-16-2023 Provider Letter May 16, 2023 BETSY FERRERA [address] [place], [place] [address] [address] : 1985 To Whom It May Concern, Please excuse above patient from work 05/15/23 and 05/16/23. Sincerely, Dr. Jose Stack MD General Surgery [facility] Provider Letter May 16, 20[address] [place] [address] : 1985 To Whom It May Concern, Please excuse above patient from work 05/15/23 and 05/16/23. Sincerely, Dr. Jose Stack MD General Surgery [facility] RAD - CT Reporton 05-01-20[address] RAD - CT Report [id number] #1.00CD:127 Normal [facility] RAD - Ultrasound Reporton RAD - Ultrasound Report [id number] #1.00CD:127 [facility] Consultation Noteon 04-19-20 Consultation Note [id number] #1.00CD:127 [facility] Physician Referralon 023 Physician Referral [id number] #1.00CD:127 Normal [facility] US SINGLE QUAD RT UPPERon US SINGLE [...] by: MADDIE TREJO Date: 2023-04-04 10:15 Normal [facility] AMYLASEon 04-02-2023 Amylase [Catalytic activity/Vol] 22 U/L Critically low 25-115 [facility] Comment on above: Performed By: #### L IPA, CMP, SALUD #### [facility] [address] [address] [address] Richy Blankenship CBC AUTO DIFFon 04-02-2023 BASO # 0.0 103/ul Normal 0.0-0.1 [facility] Comment on above: Performed By: #### C BC #### [facility] [address] [address] [address] Richy Blankenship Basophils/100 WBC (Bld) 0.5 % Normal 0.2-2.0 [facility] Comment on above: Performed By: #### C BC #### [facility] [address] [place] [address] Dr. Richy Blankenship EO # 0.1 103/ul Normal 0.0-0.7 [facility] Comment on above: Performed By: #### C BC #### [facility] [address] [address] [address] Richy Blankenship Eosinophils/100 WBC (Bld) 1.2 % Normal 0.9-7.0 [facility] Comment on above: Performed By: #### C BC #### [facility] [address] [address] [address] Richy Blankenship Erythrocyte distribution width (RBC) [Ratio] 17.4 % Critically high 11.0-15.0 [facility] Comment on above: Performed By: #### C BC #### [facility] [address] [address] [address] Richy Blankenship Hematocrit (Bld) [Volume fraction] 37.9 % Normal 36.0-48.0 [facility] Comment on above: Performed By: #### C BC #### [facility] [address] [place] [address] Dr. Richy Blankenship Hemoglobin (Bld) [Mass/Vol] 12.1 g/dL Normal 12.0-16.0 [facility] Comment on above: Performed By: #### C BC #### [facility] [address] [address] [address] Richy Blankenship IG # 0.01 10e3/ul Normal 0.00-0.03 [facility] Comment on above: Performed By: #### C BC #### [facility] [address] [address] [address] Richy Blankenship IG % 0.2 % Normal 0.0-0.5 [facility] Comment on above: Performed By: #### C BC #### [facility] [address] [place] [address] Dr. Richy Blankenship LYMPH # 1.8 103/ul Normal 1.2-3.8 [facility] Comment on above: Performed By: #### C BC #### [facility] [address] [place] [address] Dr. Richy Blankenship Lymphocytes/100 WBC (Bld) 31.0 % Normal 20.5-60.0 [facility] Comment on above: Performed By: #### C BC #### [facility] [address] [place] [address] Dr. Richy Blankenship MANUAL DIFF REQ NO Normal [facility] Comment on above: Performed By: #### C BC #### [facility] [address] [place] [address] Dr. Richy Blankenship MCH (RBC) [Entitic mass] 25.5 pg Critically low 26.7-34.0 [facility] Comment on above: Performed By: #### C BC #### [facility] [address] [place] [address] Dr. Richy Blankenship MCHC (RBC) [Mass/Vol] 31.9 g/dL Normal 29.9-35.2 [facility] Comment on above: Performed By: #### C BC #### [facility] [address] [place] [address] Dr. Richy Blankenship MCV (RBC) [Entitic vol] 80.0 fL Critically low 81.0-99. 0 [facility] Comment on above: Performed By: #### C BC #### [facility] [address] [place] [address] Dr. Richy Blankenship MONO # 0.6 103/ul Normal 0.3-0.8 [facility] Comment on above: Performed By: #### C BC #### [facility] [address] [place] [address] Dr. Richy Blankenship Monocytes/100 WBC (Bld) 10.2 % Normal 1.7-12.0 [facility] Comment on above: Performed By: #### C BC #### [facility] [address] [place] [address] Dr. Richy Blankenship NEUT # 3.3 103/ul Normal 1.4-6.5 [facility] Comment on above: Performed By: #### C BC #### [facility] [address] [place] [address] Dr. Richy Blankenship Neutrophils/100 WBC (Bld) 56.9 % Normal 43.0-75.0 [facility] Comment on above: Performed By: #### C BC #### [facility] [address] [place] [address] Dr. Richy Blankenship Platelet mean volume (Bld) [Entitic vol] 8.4 fL Critically low 9.5-13.5 [facility] Comment on above: Performed By: #### C BC #### [facility] [address] [place] [address] Dr. Richy Blankenship PLT 243 103/ul Normal 150-450 [facility] Comment on above: Performed By: #### C BC #### [facility] [address] [place] [address] Dr. Richy Blankenship RBC 4.74 106/ul Normal 4.20-5.40 [facility] Comment on above: Performed By: #### C BC #### [facility] [address] [place] [address] Dr. Richy Blankenship WBC 5.9 103/ul Normal 4.0-11.0 [facility] Comment on above: Performed By: #### C BC #### [facility] [address] [place] [address] ABD/PELVIS WO CONon [...] ROB LAKHANI Date: 2023-04-02 02:14 Normal [facility] LACTATE/LACTIC ACIDon 2022 Lactate [Moles/Vol] 0.9 mmol/L Normal 0.4-2.0 [facility] Comment on above: Performed By: #### L ACT #### [facility] [address] [place] [address] Dr. Richy Blankenship LIPASEon 04-02-2023 Lipase [Catalytic activity/Vol] 86.0 U/L Normal 73.0-393.0 [facility] Comment on above: Performed By: #### L IPA, CMP, SALUD #### [facility] [address] [place], [place] [id number] Dr. Richy Blankenship PROF 14(COMP METB)on 023 Albumin [Mass/Vol] 3.4 g/dL Normal 3.4-5.0 [facility] Comment on above: Performed By: #### L IPA, CMP, SALUD #### [facility] [address] [address] [address] Richy Blankenship Albumin/Globulin [Mass ratio] 0.6 {ratio} Normal [facility] Comment on above: Performed By: #### L IPA, CMP, SALUD #### [facility] [address] [address] [address] Richy Blankenship ALP [Catalytic activity/Vol] 151 U/L Critically high 46-116 [facility] Comment on above: Performed By: #### L IPA, CMP, SALUD #### [facility] [address] [place] [address] Dr. Richy Blankenship ALT [Catalytic activity/Vol] 49 U/L Normal 14-59 [facility] Comment on above: Performed By: #### L IPA, CMP, SALUD #### [facility] [address] [address] [address] Richy Blankenship Anion gap [Moles/Vol] 13.5 mmol/L Normal [facility] Comment on above: Performed By: #### L IPA, CMP, SALUD #### [facility] [address] [place] [address] Dr. Richy Blankenship AST [Catalytic activity/Vol] 107 U/L Critically high 15-37 [facility] Comment on above: Performed By: #### L IPA, CMP, SALUD #### [facility] [address] [address] [address] Richy Blankenship Bilirubin [Mass/Vol] 0.3 mg/dL Normal 0.2-1.0 [facility] Comment on above: Performed By: #### L IPA, CMP, SALUD #### [facility] [address] [address] [address] Richy Blankenship Calcium [Mass/Vol] 8.9 mg/dL Normal 8.5-10.1 [facility] Comment on above: Performed By: #### L IPA, CMP, SALUD #### [facility] [address] [address] [address] Richy Blankenship Chloride [Moles/Vol] 102 mmol/L Normal 98-107 [facility] Comment on above: Performed By: #### L IPA, CMP, SALUD #### [facility] [address] [address] [address] Richy Blankenship CO2 [Moles/Vol] 22.3 mmol/L Normal 21.0-32.0 [facility] Comment on above: Performed By: #### L IPA, CMP, SALUD #### [facility] [address] [address] [address] Richy Blankenship Creatinine [Mass/Vol] 0.70 mg/dL Normal 0.55-1.02 [facility] Comment on above: Performed By: #### L IPA, CMP, SALUD #### [facility] [address] [address] [address] Richy Blankenship EGFR-AF PALESTINIAN >60 Normal >=60 [facility] Comment on above: Performed By: #### L IPA, CMP, SALUD #### [facility] [address] [address] [address] Richy Blankenship EGFR-NON AF PALESTINIAN >60 Normal >=60 [facility] Comment on above: Performed By: #### L IPA, CMP, SALUD #### [facility] [address] [address] [address] Richy Blankenship Globulin (S) [Mass/Vol] 5.9 g/dL Normal [facility] Comment on above: Performed By: #### L IPA, CMP, SALUD #### [facility] [address] [address] [address] Richy Blankenship Glucose [Mass/Vol] 95 mg/dL Normal 74-106 [facility] Comment on above: Performed By: #### L IPA, CMP, SALUD #### [facility] [address] [address] [address] Richy Blankenship Potassium [Moles/Vol] 2.8 mmol/L Critically low 3.5-5.1 [facility] Comment on above: Result Comment: Re-r an and verified Performed By: #### L IPA, CMP, SALUD #### [facility] [address] [place] [address] Dr. Richy Blankenship Protein [Mass/Vol] 9.3 g/dL Critically high 6.4-8.2 [facility] Comment on above: Performed By: #### L IPA, CMP, SALUD #### [facility] [address] [place] [address] Dr. Richy Blankenship Sodium [Moles/Vol] 133 mmol/L Critically low 136-145 [facility] Comment on above: Performed By: #### L IPA, CMP, SALUD #### [facility] [address] [place] [address] Dr. Richy Blankenship Urea nitrogen [Mass/Vol] 8.0 mg/dL Normal 7.0-18.0 [facility] Comment on above: Performed By: #### L IPA, CMP, SALUD #### [facility] [address] [place] [address] Dr. Richy Blankenship Urea nitrogen/Creatinine [Mass ratio] 11.4 mg/mg Normal [facility] Comment on above: Performed By: #### L IPA, CMP, SALUD #### [facility] [address] [place] [address] Dr. Richy Blankenship Coding Summary.on 03-01-2023 Coding Summary. CD:[id number] Ww+PGhlYWQ+HY5GPRKpM 52muHBcrY7zN9ZOENlOC ywgQVBQTElOSyIgbmFtZ F6poBIeEOYs IC8+OH4cSBEzHkylyBAr y3U8bPN4L79bqo9wNXvl nON3DNApKmVrbsrod5hr jFf5CIjdBktcJhOd NEKlnB88ULM4kF70Xa27 rNFqiYAsd4rrlVd1YfYx OFJzVJI5jGypEIfrt7Qu UJBxC87xbLNko8X1 IGNvbGxhcHNlOyBlbXB0 eA2nDKtlxnvie8zpewrg Qzg5gc85dLDkx8F3sAU7 G3QeeuH0SDTdqCEr GoxytKFQnD7wudvsl5zd uhjhXiPyTQKcWYk0LJl6 ZKJufCkkGkPmXB84UPL5 RBWdjsBbY0EwTMIy tCmkDdB8e9B0Mt1KR2RD EpnvE7OWJQJWEFplfIH+ ZA46wy41X3CuGzskDkn5 IWUkAVQ5zRT1bT0n YLYbCHqxw0Z2nET0W0Wu ufUoog1do2sgNTUhIBuf B31tuYZzy9E5IMFtwRY5 OHUiaNspXvJhuS93 Oyc+MJUajLnkx5YjHuwb b6hoc3iacBy7YjgaIHOy ioLnhFlyGGL1g3XfJb1f FPRayAB7oTO3zA6j TyTtPlM0UHnsY807UiXt dRKoYytvV57jQ3RjgMD+ PGOhWio5JLGvfEmbVX8x L0HqRULusxnnyZIp tRqyRH1tZUXvofwiCEMz bT7nDPKmF6o9MjRqNyX3 YTflO3UuTXFjigiiIg99 nE6kNfIuZkG0YEhn R9GoflH0ALZgfTJyCNee HYW3F66ob2D6WCHuUGCk NUC1uPB5aA6rkTnrguci bGVmdDsgdmVydGlj BLzqYWjqK809QOBozDpy PkNvZGluZyBEYXRlOiAg MDQvMTIvMjAyMzwvdGQ+ SNBxDDV7fQqpHEPg jBSbINynEh2xcMkabStt YB9tNCTzrmffIQJlwQ1k HONggIGmqJzrEC0oCAXn keewo691VcAaOPR2 XZRvdKHlY6BbvL0xGvYr BXHjAUUqP2WfcWLjYVmh L568FNfnDoR9GQBzpbQc J7RjKFKpoHgmPwL0 t2C0Jp1Cr3EumkfjL3Ys dYOjQxRfIscvMUp7H6Dp PjwvdHI+FH45JOPvUQ97 HOv4BTO0mDwhVMoz FOFwL2BhoR9wGhHtJRFt ZGRkOyc+PHRhYmxlIHdp ZHRoPScxMDAlJyBzdHls EI1qBe4bCDOpBHSa jIouiZUuThEmm7bsCFHp YZbnTM5ugFnfN0CveJG4 LFXkp4h9Cs43F45fZ2Me dXA+WGCeaFC9aZG6 eT8uVlGsChA2HUxlC664 SfGicAElPexyn8ocr5hz gTj9CbL5EEYnjeGqkDnr XNI0y9VmYt69W34j IHdpZHRoPSIxNSUiIHZh gKmkay7xsQ1dGr1+PGNv mPW4jOT7hJ1nQnFdAcW1 GMcgL247KwVaqXYp Qfffr2msd2tleTi8MzHh FKBahfZkeEidSTL4v0Ya Th90B0WnoUrmp7OsRqn7 ck72uFYfv0R1kJI8 V2GxRFIyoextvLMtyJzd FZ9zLZDjunaaUXVykB4j FYPdW4k0DtHlOnN6BDxk A0NbuqG8LYDqdZFt EWChaTIYpZ2tfcvvg0ar ggwfXzUhQNFjLCp4QBk3 XPPxpZpcPxKqBJY2KgB9 VKR1oQIqsT7meXlr vmqdxP6vHyz+IEZ8dOLj wBQDTP1nWstzlWW+PHRk VDU4mEeoJPjoHZMmaO9b XYMgX1b8PoWhWpH9 XOdvY3MwydW4EURcwDGu ZYLoiPLObO0gcvcwb6qm walgFeAdLIWyIUk8WNa9 LWFsaWduOiBsZWZ0 DgP9TQL0xMYboT2wwCrg hrzxpX8fPtw+QmlydGgg CIE4ATu3J6VgOuv1XEIr oJqrHV9jgSCmAAfz In2doMxdpHvoFL3dFNHc ijybv516UmNjf9lvFHVn qMYbBCcjTCL8C71zl3Q0 ELIuFCAuODD7jAM2 xR8doOwexgvltDIdqFzs ivHroYpdATpqXGvqB009 CLIsfBntMbPyJZn8Q9Ws Klr2SISmkPpoXX7c tSOkRFaeFi0ajDevjMyv KP7mRDBwibapc519AvXc l1ceVXDiwYSpDHltHWK9 Y46lc2Z6HLInXEUq IVX6uQR9dT2lbWmrzwbq bGVmdDsgdmVydGljYWwt NLchI898PNWfrLbsFaSu lYn0V4EeIwq1VWFr oVboGR0gaFDySZxwXp0a gOvexOvtPY1dVUPcrzlz d740WoWoy0mzWRKgiFSz AEdsMHQ1U16eh2S8 OWXjKFNbPLS4qDR8xL2m bGlnbjogbGVmdDsgdmVy zRcaXGnmZAddD872FVLq cDsnPlBhdGllbnQg ZFjwJTl6X6KqInzgmGS+ YM81YAJuGX09jXOybBPb i1ueaTq1UoWvGJAhTUW6 tHimORwda9TpFITw H33noLFzh9T8PHOhcSpp rYOaIqRqkCG9mN2wIHgw nklbx0cizdhvVjurx2jd ul02cU16W41nYIzx ZHRoPSIzMCUiIHZhbGln ul6pkM3iWc8+PGNvbCB3 sBD6tT5bXPOtHbB0VStg Y490BaCilWUuScgm t8ojk2vhjLt7HtR8GZXg mpRvaAcoWFL5f1XmXo58 X87sRRydOUKxKOLnJSAm XABrrOqmzg0wrZ7t Ii8+GWAceBZ3hIS7zA3o ZnCkWxY0DOlkN917ZxBl zHFyWekgB10oS2OqfDG+ PJTrWyj5ZYEcxGum XT3myZZyRTjpOd7jCFA5 DsWfCkRmAAgfO6WbGSXf aywwpqnscRH1JNKaQNVi iU60Os0loGfsPJSa dVTTzZ6awxcmx1mcqpbq HaUbDDAhBBw6HZv8IZPo wTcyBjXsSKK6NbX3DOH6 qRDjvX9xrXvjpvan oQ6wA6JeZBYtvmxaLy22 vS7yJdCpBtG9ZVocLjv+ UNNUODsiRTDDRXjXAB06 KF01nQXyr3G5aNM8 G7GkEKBqhsijjnxcdTF8 SWFwZYOtrY21bSFfPWzz Pa4iw1N5l236ZHRqKSCv mM49Qr8naXmhBKSn zDGZsB3rkkjtv3jwcylz ZdWdRVKlPTt3IFz1WEZf dDgaZwLcMBR7DwI9TKX8 uRHfoJ2jsUlsianf nU8cWex+MTIvMTEvMTk4 NzwvdGQ+ULXdTNK5xEyv QNpuTKAskH9sQCDzQ6j7 JhHaZdA5ODbiV7Ii FYXcoxmhOe72qM6rAnWj NqH0PWoeT5XxvgO0JYPx lAFoSJkrKVL3J82lr5J6 TWLrMCNnFXZ0bMH1 iO1kcWbkpmjssVZsuQgr zjKndXtxDUvzSTgaA214 BFCewLajFgE7BSrpQQBf PK48CO77uBKfr2P6 nRJ3D4NcWBNqzsklgugh eFX2SLSjKGOstO93bMOm NMzlXy8iv8P4b406RQYc CPUckF02Kg3udUnb XPOcrXVXwB5vbiern4jj ojpcJpZsSBMiDFa4GEq9 DAQqxBpdLoDxHFX3JbR9 PDJ3dXSciM0fcZpo opyycZ1hMlu+RmVtYWxl TF81SI54mYIwc0X1yVW4 C0BvSRFvneghohkwkHP4 HKPrTYOsrZ27oKWh VOrqZn7cg1Z1a324IFRw DYBpuK33Jm2cfYnqCQDr yGAPkK8olpyig4ciqaod ToAaYSRuMCn4DPr2 AWEdkBhrJwFfEOU3QsA3 IYJ3rPKosX1nlWfjhgiy cP7wPjt+E6N9bAC3nZIk dDwvdGQ+CJ17ts67 C2PyYgkeMcc5VSToYJN2 kAB7nG5dDDPeBVxnn8S0 pFM7N3XjfmNusl3hg6fg JMNeEYvlC55rsWLk g1G3CDMdtJT4GFWauOzg UxVpcU17Svt+PGNvbGdy p0HxEpyuo5srn2lcvJz6 IjMwJSIgdmFsaWdu XRM8n9XwLo72S99yIEfx ZHRoPSIzMCUiIHZhbGln cn8kbR0lUt4+PGNvbCB3 qOC6tX0pNmJrKqJ4 XWhxG322HkPrjQPpSbly y9xgv5idqMn5XqJnHSMl jpRlcFzfDRF1t8LlDw61 B0PfvGfqd2LfPdr1 ir78jLPsl5Y3sTL6L2Tv UNHodipzxRFluLmeQP7y MBMtatkhHRPfdO7rEYSm D2l8KeDnWeZ1HWum X9ZinoP3IJBktHTjHHHs mKBOyB9gtylzm4zrtziw WnTjZMXxFMz0JWu1KHWi uNjtPqZkBFD0KiB6 VYS0wVRhiL8rhRvaeucn zG7uIss+BMc0y2rmwTKf DH5nvIM5AJ57KS45eRYb r4O8pHC7Z9PhEVBh nuxmxtxglGH2HYZlSKAd hL08Gy9czTbvDb8hFLFp EFX6RGYagTWbE6IiqB8c OwIkAAFjWCRiV4Lr vMIuRTdtN055UGuhIiR7 NTWmzfNxQ9EsFBJsuRtz GvP6p2J7Os4YBX36EW34 AX49hDUbb1W3yHN7 P4TjUTOoitirqdywwGM8 TYLhNGBtwX02Lf9tkLqz Rr4gGWDqCHD9TXThqVBo D6QvfJ8zDvQiQOTx CGJxJ4IcbGSoYSzeS424 KLiaOlG9BWKtjzQcU2Kf URKhoFleXlG3m1C9Qv0I Xb44XO13XE24sRSf t5R0tPN4Z1DcSWNtxpjo utgfjAE7KUWrEXEzbH59 Mm6jmIhsPd5xSTWiOGY4 FCZugDDjW8OclU3f GbIfEFAeRIKhH9FxuERl ISosJ683MJvyMfO2WYEj jmStV5EpSDUjnLysPlK3 c3Z2Vf6AKYxrdgd0 Y0DoQymzoBH+EP53QZKr NT36bBSbpYOst9bccTo7 BrYyPDLoDST8kCucBYkp h1IyZRZiS92kyZQl p5H8HNId (more content not included)... Normal [facility] Nursing Assessmenton 023 Nursing Assessment [id number] 5#1.00CD:127 Normal [facility] Coding Summary.on 01-02-2023 Coding Summary. CD:[id number] Gh0bWw+PGhlYWQ+PE1FV JAlC11zgHMbwO0RG9hWB D3EKAUZQHJXOX7URY3nb EV7ATjrP4AgxsBw EtuboNAaXW52QRc3ZIF8 fYmhMTeiaV4scFUvK6h1 QhIaGW47cP60AMqoHUQh JlI3PdYcupaylKVf U3svXrImbCLkDsy+PHRh YmxlIHdpZHRoPScxMDAl WpMmtTwcFH5vAh3mBDZp LWNvbGxhcHNlOiBj o1ujIHVlGBhrNV1chSoc A1AauYU4RTMec2c3Xd39 dHI+GGNjYFF7lKlsXVro y219McKtt9tyPEP0 tETnXTqhFGS0U07ke7S6 PNCkIJCvNZA6lBD8zB2s zBkbwxbzU6JpgWQnXsK7 YNX0hICneM7joHrr bhxosV2jEvn+S30PAL4N JEDNCC8WCop4Y5YdPxyo dHI+TE44WHTdCI89eGUn jDMcf2bolQt8UrNd DDUtYBK2vRanLTvrp0Ic WKIkK59utWAbl5R7EFEv eDpbtRUiUcIycZT7yV7k FIgwzqbtf5nlwmqm Axots0nweo90pP18S45l MUuoLZDhRSW7JUNxRVHp vKgrgv0dtX3fMt7+IDxj p6qlq6ersOj9YvCu EMVvelHrnXqdBFH5x5Tt Ix67S9WbuLlhd1BvFch5 mg03qUHqo0M6oZW2AJmp NSFglM8kGErdGrW1 EQBbZhPblQ43tOMrCLpv Nw9qsAwcaXilGI1fNLEl ffziGATwzR8cBVFnyUFs rBuoIN3bJRMesfck z720YkGmKFA1AYQovZLo D9MwhN4yKxHzFSLxBVEr E9GulUTbRMpwS275HXlm HxW0HAOeawNuB4Lq QCGhvAprRlL3m2H4Zb9Z n0TdcgwtRNB1TTtiCRYt DoGlBvNzKiW1P4NmAnn5 CMObwOfhTU6aN8Cq XXBdfuciagqgvRU6UNVk ESVsoI27aMLvQRxnEd2l j3W4a433ADJtVOKjsR86 Yw8qpAkoVYTtqMUW mV4wnbruf7xtdtevUhCr VNAwRMg6PWp9RLStzDke TpIwJRC7WjB2VKL3vBYm mM7veQaewfdqzS5b Oyc+I03acI7pZQA9HTM5 nveyEEJwxeEpAZ32RG66 E0SrYwgtkVWwxYT+PGRp fmCopUraVZ6wHvNg w7zau0GrHCieG0VrQJUz LQkyMlh2BNTqCHC6hGV8 hZ1sUAAeBOdry1M5mWM1 N2RmndBlzj3gg2iz JBDyZPdkQ49imHEac7K5 UUHorHC5QGHfgEkzZsPe eD32Cji+EENrkNwnt4Em Xinqm6fwk5mgaZy8 IjMwJSIgdmFsaWduPSJ0 p9LoWf79O92vICnlEQNf IHQuXMOmKALzrDogcw0z vI2rLl4+PGNvbCB3 aHO9tS2bGSSyStO2SZps X240JxUpqJWxNauoc5fq j1tjyWt6FsPgODJhdbJw hLrkWEM4q0YpBc19 M84qPVhpZRQaUNGsQEJe DOHufOufbo8seX6yDy6+ VK8cy9cfoo35fW27dSN+ RELxPOB4gOraIIkc HWBihC5eGKjrItV7VTSd OqEydS89jRKxYJycHx9s zPficTktFL8wBSVdpjdy z927MdAcr5gjEKWj dBHnQVqhUMR6F51ub9J7 WFFtKNLcVJP9gTN4tB3f bGlnbjogbGVmdDsgdmVy wLygTEwvIVhdM933 IHRvcDsnPlBhdGllbnQg EdNeQTh0A8JbOov8UGVx gFwmRM8ikSNvUUkeEw0p tBoaoPwyAJ0eCWWp qjmec864CvAfh4ipNZVb kDYoODvpPOT9Z34ly2Y8 OTHhCVXaGUA4fIJ2cR2h bGlnbjogbGVmdDsg ceXltTyrGSwzHDbbS632 IHRvcDsnPkJpcnRoIERh wHR6PO32MH47cHJvu9N0 tRR5T5EaFLVhfzai wrofoUX2KWVwNLDmiE87 Zr2zdJbpXy6kKRUmTDC0 DSPemTQdQ8SyhK9sPjMm RKKuYNWrY1CytREt PDhjM191XQqtJoU6SETb inAvC2PrVKErtTavXkE9 f2R1Ry2NR0W5KB90FU01 fAKcu7B7bRR3R1Ec YGNkhahokllqkPN9SDOa MCHkkQ39Rd0gtAqcUm2c LTTvXFI3KEScvTUzF4Dv hN3fYrSuHXKvPUOq F4WvfCWzULgsL658FBty ZhH3YVOjonEiP4EzPFAt pVkjNtF1b6V7Zd4KXOe2 OO09NN60kNNcp1U6 oUJ2W6MaZHBohjioewic rXO1PPDzXZKioC68Is4j wLygZx1bCCGvLVL5TEPa fDNxQ4CmtW9oFjYx SZIrYHElK1QntFCbCWqy R649FYboPuL7SAIkzcMa J8EyGOIkmOcaRlQ1g9P1 To9VVIChMN98XGR9 zJY9BB68KA93I9DlIcpw dGFibGU+PHRhYmxlIHdp ZHRoPScxMDAlJyBzdHls IY0wQv9nSUUoMQXr eWtghBQrYtBgl6diABEq ONytPE8njWzoM9YdvSC4 RNXpl1s3Kg27J35tK6Bk dXA+CKZaxHZ4xDA4 kM2rRaCoElP4LSxcY371 KkPiyTNpAwisc9yyc4lv cEi2NdQ1MEErbrEsvBda ZXI7w6JzMk97F53o IHdpZHRoPSIxNSUiIHZh sWqilz0rxA0hIj2+PGNv yUD1iCW1kQ2wSsXtRgQ9 YYmfP582SdMchEXe Qiyth3irx7udcLq0KmMa YNMpahYeyHhxPSQ1n0Hl Ht72G2OkmUhsv3JwOoi3 qa95tFPtj5C1bBZ2 V3ZjAMWlkmbutIXyfXfu WR6pLMXepoenXXOmpJ5t BXWlD5p2DtTbVbL9BWki B7DnaaO4CWBsiZJm FKagEVF0D91mn7R1ZLJe WYZoVGA1lNN2cY0wqNvc bjogbGVmdDsgdmVydGlj TEvbZXcaI378YBAa iVwoSFIcaN0kIRUjcHMg iAkvUQ2aQVHtjkcuAaOK TkEsIFBBTUVMQTwvdGQ+ CLLbFED8lWbfEAep OFGiiO4cYHFqY2c0YxQo WtA5HEbmZ5QnBTCqaect Om88hR9hHeGtRpK7NLao R7QdooL4BTDklUGu MRwuDMB6R75hg9Q0YAQo VBNbLBD8bKM7pP8ecCxu bjogbGVmdDsgdmVydGlj HDnfZCmaH433VZHr lXfxKhObDsEuWiU5KJu3 A5SvCvj0GUDxhVeiOJ6r jTGvWXcxRn8ciNkniOds NO3aRRCktyluTZCa sM3vGZWfdVFkpWhyEC4s EKCilxwjy579IdWgXSN0 ZTFodFTcH8IrgU6tGeAo BKGjZVTaA0ZasQGl HXefN680GQvxDgZ6MTHy eaCfI8GpSUHleRgfWbJ1 k2R4Rw5gRVPIJILthjci dGQ+QCRfNAY7wIqb ALnqTKHhkK7gLOIcV2w3 PiNmCeL6MOlqI8ZmWVVo oqgrSl84mE2qPiAsGsA5 ZRziG5AfinG4ZZBh vFWbCVmqKWQ5R67fx0O2 UTRbSDXjRQU1rXH7nK1i bGlnbjogbGVmdDsgdmVy hMvmPXbmTNdmU492 IHRvcDsnPkZlbWFsZTwv dGQ+CRTsWUU0qEcsERmn ITVgrV5eJQQeG8x6HhRe PmS5XCdiU5MyXPXa remnJm23iS2jZlQwPtS4 IYcsQ5GgbvR0JKNlmRTi PMwqSUO9D84ro0I5ILRm MBEsMYX5bJJ9dK1a bGlnbjogbGVmdDsgdmVy aNfoCCnrGXxzG990HLIn kIkxEssicMQ5qDOyrQzr dGQ+NQ24pr80W3Qi VoxvEud1IQDrBGZ6nXQ9 nN6rFZEyMDmvw5Z9eQF7 Z7CnhwPpaa6od3cqGFKc MDwmL65fkAJni2T2 ILZgiTT1XOPnuEuyMbWc fI28Bhv+EAGjuFjyh6Gb Vsprq8drj3ldiLb1OrCw JSIgdmFsaWduPSJ0 l2TwFh91E58kWLjmDIJb WAXxJJEbDIUrkTnaan3q gE7tNj1+MMFncQZ0iTJ3 iR2cStFhAcD0NXvn S106VnJmjIFoIjjma0iz p7mbgVr9CwGhSCGbfjGb kCfiSUB5a2SoXp45I8Zb sVekm5TcOmi6cg04 uCNrd2O3dVD8H1VdUZZg uasooUBbrGeuVJ1uDFKl nipvMUKayE7jZRMkY6e1 MzYxGdN1XMitR0Cc gqR6UENujGSvDHUvgENQ cK0pesmxg5haufvoFeVa VVExSHk2HHb6LLHqfPxl PgTdREJ6KjB6RPU9 aDWgyJ5sqIppxlmrfC3k Oyc+CPq8q3koyIYsFX9o fTH0YU43DZ17sYYgy7F9 aMM9M8LnKHCxxkrw nyidrCR0IYEbWKBalN64 Or4qmQwhKy2uOUCvBHE2 JKVgqQJcZ0ClyG4dHjPp YKTkQOEhS5UioJQj AVrgP411VCqiVeO6CWCc ggMpR8GtFIVljVikKmR2 k9S9Cl8AUF05RH56UP49 yWHef3O6hCP3R2Lg FCEclcghzkgduMG0GQLn NCYpjK77Ob5yfXtkDy2x KWMlQZO8YNKbaUNlG2Dy tU0yXfGdOJQdILCm E5SomXCyGKigA305WKuf ArU2TVZxsjRjL1YqRZDz mGykAzW3h2P7Nf6MAg68 CX03ZE26xDWwu5R6 tWJ7W6VoGSQjvmclrnrh iVA3EATeKOGuvA71Gs0p vBlbPi0yLAUkUZS4VSCl mRXaL4IoiN9fTrAf WOIjVQFmO2FvkFIiIUkw H371BSwkClV7LJRkkdSy B3LzAWAsfQpyDmT4r2S7 Si2RVBtrosr9X9Vh PjwvdHI+IC48GNZvMA49 gBIweZKrk0kvzXe5OhCj GEZkBWH4jOviIXiyr1Xt PEAxU11xfPOxh0K7 IGNv (more content not included)... Normal [facility] IntraOperative Documentson 0 01-02-2023 IntraOperative Documents [id number] #1.00CD:127 Normal [facility] Progress Note-Physicianon Progress Note-Physician Patient: BETSY FERRERA [...] criteria ( From PACU to floor ). 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 Resolved on 10/22/2013 at 27 years. ([id number]): Onset on 02/17/2011 at 25 years. Resolved on 11/17/2011 at 26 years. ([id number]): Onset on 08/04/2008 at 22 years. Resolved on 05/04/2009 at 23 years. (438560106): Onset on 06/07/2007 at 21 years. Resolved [...] results Radiology results ECG interpretation Condition Plan [employer] [employer]esthesi[employer] (ASA) physical status classification: Class III, E. Anesthetic Preoperative Plan Anesthesia: Regional Spinal. Anesthetic plan, risks, benefits, and alternatives discussed with the patient and/or family. Risks discussed: nausea, vomiting, headache, sore throat, dental injury, serious complications. Patient verbalized understanding. Communication: face to face with (patient 5 minutes, Pt educated on the importance of smoking cessation.). Normal [facility] Comment on above: Result Comment: Elec tronically Signed By: Danis Walden Jr, DO\.br\Date and Time Signed: 01/02/23 07:04 EST Discharge Instructionson Discharge Instructions [id number] 9#1.00CD:127 Normal [facility] Inpatient Clinical Summaryon 12-31-2022 Inpatient Clinical Summary [place] [id number] Clinical Summary Person Information Name: BETSY FERRERA/[facility] Age: 37 Years : 1985 Sex: Female PCP: Zachary Boyd MD Marital Status: Single Phone: Race: Other Race Ethnicity: or Language: Yakut Visit Id: Visit Reason: preg Speciality: Acuity: 3 PO Enc Type: Inpatient Med Service: Obstetrics Arrival: 12/27/2022 14:43:07 Discharge: 12/30/2022 23:06:47 Dispo Type: Home (Routine DC) Address: [address] [place] [address] [id number] Provider Notes: Diagnosis: Advanced maternal age in [...] range between ( 80.0 and 100.0 ) Miller Auto: 4.0 % -- Normal range between ( 4.0 and 14.0 ) MPV: 6.9 fL -- Normal range between ( 6.4 and 10.8 ) Neutro Auto: 78.1 % -- Normal range between ( 36.0 and 75.0 ) Platelet: 216.0 E9/L -- Normal range between ( 150.0 and 500.0 ) WBC: 10.4 E9/L -- Normal range between ( 4.0 and 11.0 ) Miller Absolute: 0.4 E9/L -- Normal range between [...] (12/30/2022) Fin (more content not included)... Normal [facility] Inpatient Patient Summaryon 12-31-2022 Inpatient Patient Summary [place] [id number] Patient Discharge Instructions PERSON INFORMATION Name: BETSY [...] repeat low transverse Condition at Discharge: Stable BTESY FERRERA has been given the following list [...] Follow up: With: Address: When: Dr. Garcia [phone] Within 2 weeks With: Address: When: Dr. Garcia [phone] Within 6 weeks Comments: Call for any problems. In the event that this physician does not participate in your insurance network, please consult with your insurance company to find a nearby participating provider. Comment: IBAN Guzman PAMELA, have received the attached patient education materials/instructio ns and have verbalized understanding. Patient Signature Date Clinican/Nurse Signature Date MEDICATION LIST New Medications [facility] #[id number], [address], [place] [id number], [phone] ibuprofen (ibuprofen 600 mg Tab) 1 Tablets [...] to serve you. Thank you for choosing [facility] Normal [facility] C Urineon 12-30-2022 Bacteria identified Cx Nom [...] Locations R1: This test was performed at: [facility], [address] [place] [address], [facility] , , [facility] Comment on above: Performed By: #### 1 [id number], [id number] #### [facility] [address] [place] [address] Vaccinationson 12-30-2022 Vaccinations [id number] 9#1.00CD:127 Normal [facility] Main OR Intraoperative Recor don 12-29-2022 Main OR Intraoperative Record IntraOp Document Type FT Summary Primary Physician: Danis Garcia MD Finalized Date/Time: 12/29/22 08:51:53 Pt. Name: BETSY FERRERA/Sex: 1985 Female Med Rec #: [id number] Physician: Jose MATA, Danis [employer] #: [id number] Pt. Type: I Room/Bed: 02/ Admit/Disch: 12/27/22 [...] Role Performed Anesthesiologist of Surgeon - Primary PUNCH FINISHER Record Time In 12/27/22 16:28:00 12/27/22 16:28:00 12/27/22 17:28:00 Time Out 12/27/22 17:50:00 12/27/22 17:50:00 12/27/22 17:50:00 Procedure SECTION SECTION SECTION Comments Last Modified By: Keyshawn Rossi Terry T Sweene, Terry T 12/27/22 18:10:05 12/27/22 18:10:05 12/27/22 18:10:05 Entry 4 Entry 5 Case Attendee Keyshawn Rossi Jessica D Role Performed Regeneration Operator - Primary Scrub - Primary Time In 12/27/22 16:28:00 12/27/22 16:28:00 Time Out 12/27/22 17:50:00 12/27/22 17:50:00 Procedure SECTION SECTION Comments Last Modified By: Keyshawn Rossi Terry T 12/27/22 18:10:05 12/27/22 18:10:05 General Comments: OB STAFF - NICO DIANE RN, ROSA STUDENT - AVAILABLE FOR THE CASE. Isa ROSSI RN. Perioperative Protocols FT Pre-Care Text: [...] and tissue Entry 1 Skin Integrity Intact, [place], Warm, and Skin Abnormality No Dry Outcomes [...] Position Menendez (more content not included)... Normal [facility] Operative Reporton Operative Report SURGERY DATE: 12/27/2022 [...] in stable condition Tonny Melton Dictated: 12/27/2022 [id number] Transcribed: 12/28/2022 [facility] Comment on above: Result Comment: Elec [...] post-op exam. Course: Progressing as expected. Normal [facility] Comment on above: Result Comment: Elec tronically Signed By: Danis Garcia MD\.br\Date and Time Signed: 12/29/22 07:39 EST Auto Diffon 12-28-2022 Basophils/100 WBC (Bld) 1.1 % Normal 0.0-2.0 [facility] Comment on above: Order Comment: Order Added by Discern Expert. Performed By: #### 2 457274, 31032754, 7239590 #### [facility] [address] [place] [address] Basophils/Leukocytes Auto (Bld) [Pure # fraction] 0.1 E9/L Normal 0.0-0.2 [facility] Comment on above: Order Comment: Order Added by Discern Expert. Performed By: #### 2 548839, 03673975, 4163846 #### [facility] [address] [place] [address] Eosinophils/100 WBC (Bld) 0.2 % Normal 0.0-8.0 [facility] Comment on above: Order Comment: Order Added by Discern Expert. Performed By: #### 2 263992, 84422378, 8674193 #### [facility] [address] [place] [address] Eosinophils/Leukocytes Auto (Bld) [Pure # fraction] 0.0 E9/L Normal 0.0-0.5 [facility] Comment on above: Order Comment: Order Added by Vinny Expert. Performed By: #### 2 629164, 03903275, 8836321 #### [facility] [address] [place] [address] Lymphocytes/100 WBC (Bld) 16.6 % Normal 14.0-50.0 [facility] Comment on above: Order Comment: Order Added by Vinny Expert. Performed By: #### 2 929014, 58315537, 7369344 #### [facility] [address] [place] [address] Lymphocytes/Leukocytes Auto (Bld) [Pure # fraction] 1.7 E9/L Normal 1.0-4.0 [facility] Comment on above: Order Comment: Order Added by Vinny Expert. Performed By: #### 2 468762, 75709945, 0265618 #### [facility] [address] [place] [address] Monocytes/100 WBC (Bld) 4.0 % Normal 4.0-14.0 [facility] Comment on above: Order Comment: Order Added by Vinny Expert. Performed By: #### 2 491582, 25662283, 8674974 #### [facility] [address] [place] [address] Monocytes/Leukocytes Auto (Bld) [Pure # fraction] 0.4 E9/L Normal 0.2-1.0 [facility] Comment on above: Order Comment: Order Added by Vinny Expert. Performed By: #### 2 445498, 80199485, 9993394 #### [facility] [address] [place] [address] Neutrophils/100 WBC (Bld) 78.1 % High 36.0-75.0 [facility] Comment on above: Order Comment: Order Added by Vinny Expert. Performed By: #### 2 797654, 83360100, 3070063 #### [facility] [address] [place] [address] Neutrophils/Leukocytes Auto (Bld) [Pure # fraction] 8.1 E9/L High 2.0-7.5 [facility] Comment on above: Order Comment: Order Added by Discern Expert. Performed By: #### 2 526745, 97855873, 5409157 #### [facility] [address] [place] [address] Buprenorphine Scr Uron 12-28 Buprenorphine Ql (U) Negative Normal Negative Fish er [facility] Comment on above: Order Comment: urine already in lab Result Comment: Nega tive Cutoff: <10 ng/mL These drug screen results are to be used for medical (i.e., treatment) purposes only. Unconfirmed drug screening results must not be used for non-medical purposes (e.g., employment testing, legal testing). Performed By: #### 7 [id number] ####[facility] [address] [place] [address] CBC w/ Auto Diffon 3 Erythrocyte distribution width (RBC) [Ratio] 23.5 % High 10.9-14.2 [facility] Comment on above: Performed By: #### 2 233692, 93663663, 6164222 #### [facility] [address] [place] [address] Hematocrit (Bld) [Volume fraction] 20.3 % Low 34.0-46.0 [facility] Comment on above: Performed By: #### 2 164761, 20922006, 8925550 #### [facility] [address] [place] [address] Hemoglobin (Bld) [Mass/Vol] 6.5 g/dL Abnormal 12.0-16.0 [facility] Comment on above: Result Comment: Resu lts Called To Rola Lazaro/ OB By Jill Cross And Read Back For Confirmation On 12/28/2022 07:04:57 EST Results Verified By Repeat Analysis Performed By: #### 2 975281, 54448308, 3126259 #### [facility] [address] [place] [address] MCH (RBC) [Entitic mass] 21.8 pg Low 27.0-34.0 [facility] Comment on above: Performed By: #### 2 978278, 90904133, 6571206 #### [facility] [address] [place] [address] MCHC (RBC) [Mass/Vol] 31.8 g/dL Normal 31.4-36.0 [facility] Comment on above: Performed By: #### 2 721168, 37065471, 9808998 #### [facility] [address] [place] [address] MCV (RBC) [Entitic vol] 68.5 fL Low 80.0-100.0 [facility] Comment on above: Performed By: #### 2 649013, 10720785, 7975248 #### [facility] [address] [place] [address] Platelet mean volume (Bld) [Entitic vol] 6.9 fL Normal 6.4-10.8 [facility] Comment on above: Performed By: #### 2 277699, 36412280, 0810151 #### [facility] [address] [place] [address] Platelets (Bld) [#/Vol] 216.0 E9/L Normal 150.0-500.0 [facility] Comment on above: Performed By: #### 2 642718, 40747926, 9219481 #### [facility] [address] [place] [address] RBC (Bld) [#/Vol] 3.0 E12/L Low 4.3-5.9 [facility] Comment on above: Result Comment: Resu lts are consistent with previous path review performed on 11/25/2022. Reviewed by BR. Performed By: #### 2 855537, 93342324, 2032409 #### [facility] [address] [place] [address] WBC corrected for nucl RBC Auto (Bld) [#/Vol] 10.4 E9/L Normal 4.0-11.0 [facility] Comment on above: Performed By: #### 2 766291, 75553260, 0267449 #### [facility] [address] [place] [address] Group B Strep by PCRon 12-28 Group B Strep colonization by PCR Positive Abnormal Negative [facility] Comment on above: Performed By: #### 4 [id number] ####[facility] [address] [place] [address] Insurance Correspondence Off iceon 12-28-2022 Insurance Correspondence Office [id number] #1.00CD:127 Normal [facility] Interdisciplinary Note - Soc ial Workeron 12-28-2022 Interdisciplinary Note - [employer] This SW met with patient and FOB, [...] size. Patient is already signed up for [facility] in [facility] and states that she is getting hooked up with [employer] there as well. They have reliable transportation. Patient does not currently work. FOB works moderate needs teacher. No needs or concerns noted at this time. SW will remain available. Normal [facility] Morphon 12-28-2022 Anisocytosis Ql (Bld) Present Normal [facility] Comment on above: Order Comment: Order Added by Discern Expert. Performed By: #### 2 545505, 88795087, 4460757 #### [facility] [address] [place] [address] Elliptocytes LM Ql (Bld) Present Normal [facility] Comment on above: Order Comment: Order Added by Discern Expert. Performed By: #### 2 989184, 80258983, 4334095 #### [facility] [address] [place] [address] Hypochromia Auto Ql (Bld) Present Normal [facility] Comment on above: Order Comment: Order Added by Discern Expert. Performed By: #### 2 454929, 39247428, 0189049 #### [facility] [address] [place] [address] Microcytes Ql (Bld) Present Normal [facility] Comment on above: Order Comment: Order Added by Discern Expert. Performed By: #### 2 863319, 15973195, 7810594 #### [facility] [address] [place] [address] Morphology Beltran (Bld) [Interp] See Morphology Normal [facility] Comment on above: Order Comment: Order Added by Discern Expert. Performed By: #### 2 804378, 73977874, 4543777 #### [facility] [address] [place] [address] Ovalocytes LM Ql (Bld) Present Normal [facility] Comment on above: Order Comment: Order Added by Discern Expert. Performed By: #### 2 922185, 00306826, 0320156 #### [facility] [address] [place] [address] Polychromasia LM Ql (Bld) Present Normal [facility] Comment on above: Order Comment: Order Added by Discern Expert. Performed By: #### 2 420881, 73077801, 1916606 #### [facility] [address] [place] [address] Progress Note-Physicianon Progress Note-Physician Patient: BETSY FERRERA [...] post-op exam. Course: Progressing as expected. Normal [facility] Comment on above: Result Comment: Elec tronically Signed By: Danis Garcia MD\.br\Date and Time Signed: 12/28/22 07:11 EST ABO/Rhon 12-27-2022 ABO/Rh Positive Invalid Interpretation Code [facility] Comment on above: Performed By: #### 1 6287548, 74826147, 3313951, 08247683 ####[facility] [address] [place] [address] ABO/Rh History Checkon 12-27 ABO/Rh History Check Verified Hx Blood Type Normal [facility] Comment on above: Performed By: #### 1 0080449, 85369152, 0639377, 69387119 ####[facility] [address] [place] [address] ABSCon 12-27-2022 ABSC Gel Interp Negative Normal [facility] Comment on above: Performed By: #### 1 4428888, 12834232, 5595205, 26578273 ####[facility] [address] [place] [address] AmniSureon 12-27-2022 PAMG-1 Protein Positive Abnormal Negative [facility] Comment on above: Result Comment: Resu lts Called To Georgia Johnston/OB By dc And Read Back For Confirmation On 12/27/2022 15:38:48 EST. Performed By: #### 2 [id number] ####[facility] [address] [place] [address] PAMG-1 Protein Internal Control Positive Normal Positive [facility] Comment on above: Performed By: #### 2 74661274 ####[facility] [address] [place] [address] Auto Diffon 12-27-2022 Basophils/100 WBC (Bld) 0.5 % Normal 0.0-2.0 [facility] Comment on above: Order Comment: Order Added by Discern Expert. Performed By: #### 2 885386, 71853009, 3631785 #### [facility] [address] [place] [address] Basophils/Leukocytes Auto (Bld) [Pure # fraction] 0.1 E9/L Normal 0.0-0.2 [facility] Comment on above: Order Comment: Order Added by Discern Expert. Performed By: #### 2 857068, 21048521, 4562069 #### [facility] [address] [place] [address] Eosinophils/100 WBC (Bld) 0.1 % Normal 0.0-8.0 [facility] Comment on above: Order Comment: Order Added by Discern Expert. Performed By: #### 2 589098, 98065842, 5395030 #### [facility] [address] [place] [address] Eosinophils/Leukocytes Auto (Bld) [Pure # fraction] 0.0 E9/L Normal 0.0-0.5 [facility] Comment on above: Order Comment: Order Added by Discern Expert. Performed By: #### 2 088381, 67503795, 8597533 #### [facility] [address] [place] [address] Lymphocytes/100 WBC (Bld) 19.4 % Normal 14.0-50.0 [facility] Comment on above: Order Comment: Order Added by Discern Expert. Performed By: #### 2 373252, 74164565, 1202350 #### [facility] [address] [place] [address] Lymphocytes/Leukocytes Auto (Bld) [Pure # fraction] 2.2 E9/L Normal 1.0-4.0 [facility] Comment on above: Order Comment: Order Added by Discern Expert. Performed By: #### 2 897521, 84406443, 4435291 #### [facility] [address] [place] [address] Monocytes/100 WBC (Bld) 3.5 % Low 4.0-14.0 [facility] Comment on above: Order Comment: Order Added by Discern Expert. Performed By: #### 2 608074, 68571973, 4343993 #### [facility] [address] [place] [address] Monocytes/Leukocytes Auto (Bld) [Pure # fraction] 0.4 E9/L Normal 0.2-1.0 [facility] Comment on above: Order Comment: Order Added by Discern Expert. Performed By: #### 2 903163, 89918707, 0072914 #### [facility] [address] [place] [address] Neutrophils/100 WBC (Bld) 76.5 % High 36.0-75.0 [facility] Comment on above: Order Comment: Order Added by Discern Expert. Performed By: #### 2 435208, 61952994, 9058000 #### [facility] [address] [place] [address] Neutrophils/Leukocytes Auto (Bld) [Pure # fraction] 8.5 E9/L High 2.0-7.5 [facility] Comment on above: Order Comment: Order Added by Discern Expert. Performed By: #### 2 156348, 61083354, 8155818 #### [facility] [address] [place] [address] BUNon 12-27-2022 Urea nitrogen [Mass/Vol] 9 mg/dL Normal 5-21 [facility] Comment on above: Performed By: #### 2 582798, 25339712, 7340356 #### [facility] [address] [place] [address] Blood Bank ID#on 12-27-2022 BBID# [id number] Invalid Interpretation Code [facility] Comment on above: Performed By: #### 1 3555846, 05334301, 0722256, 33889814 ####[facility] [address] [place] [address] CBC w/ Auto Diffon Erythrocyte distribution width (RBC) [Ratio] 21.7 % High 10.9-14.2 [facility] Comment on above: Performed By: #### 2 904224, 80885319, 5380204 #### [facility] [address] [place] [address] Hematocrit (Bld) [Volume fraction] 21.9 % Low 34.0-46.0 [facility] Comment on above: Performed By: #### 2 871769, 93770397, 7900337 #### [facility] [address] [place] [address] Hemoglobin (Bld) [Mass/Vol] 6.4 g/dL Abnormal 12.0-16.0 [facility] Comment on above: Result Comment: Resu lts Called To Shey Cao/OB By KD And Read Back For Confirmation On 12/27/2022 16:13:34 EST Results Verified By Repeat Analysis Performed By: #### 2 942758, 33337680, 0347661 #### [facility] [address] [place] [address] MCH (RBC) [Entitic mass] 19.0 pg Low 27.0-34.0 [facility] Comment on above: Performed By: #### 2 220553, 80993188, 4144976 #### [facility] [address] [place] [address] MCHC (RBC) [Mass/Vol] 29.5 g/dL Low 31.4-36.0 [facility] Comment on above: Performed By: #### 2 421531, 31644944, 2840182 #### [facility] [address] [place] [address] MCV (RBC) [Entitic vol] 64.3 fL Low 80.0-100.0 [facility] Comment on above: Performed By: #### 2 015070, 65709009, 2970694 #### [facility] [address] [place] [address] Platelet mean volume (Bld) [Entitic vol] 6.4 fL Normal 6.4-10.8 [facility] Comment on above: Performed By: #### 2 042955, 16479112, 5007511 #### [facility] [address] [place] [address] Platelets (Bld) [#/Vol] 316.0 E9/L Normal 150.0-500.0 [facility] Comment on above: Performed By: #### 2 256192, 29906725, 9786494 #### [facility] [address] [place] [address] RBC (Bld) [#/Vol] 3.4 E12/L Low 4.3-5.9 [facility] Comment on above: Performed By: #### 2 801487, 29898763, 4984266 #### [facility] [address] [place] [address] WBC corrected for nucl RBC Auto (Bld) [#/Vol] 11.1 E9/L High 4.0-11.0 [facility] Comment on above: Performed By: #### 2 498047, 20761596, 4886233 #### [facility] [address] [place] [address] Consent for Anesthesiaon Consent for Anesthesia [id number] 2#1.00CD:127 Normal [facility] Consent for Procedure/Surger yon 12-27-2022 Consent for Procedure/Surgery [id number] 2#1.00CD:127 [facility] Consent for Treatmenton Consent for Treatment [id number] #1.00CD:127 [facility] Creatinineon 12-27-2022 Creatinine [Mass/Vol] 0.7 mg/dL Normal 0.5-1.3 [facility] Comment on above: Performed By: #### 2 829558, 72458380, 2858445 #### [facility] [address] [place] [address] Discharge Instructionson Discharge Instructions [id number] [id number] #1.00CD:127 [facility] [employer] Referralon [employer] Referral [id number] 02 [id number] 1#1.00CD:127 [facility] Insurance Correspondence Off iceon 12-27-2022 Insurance Correspondence Office [id number] #1.00CD:127 [facility] IntraOperative Documentson 12-27-2022 IntraOperative Documents [id number] 1#1.00CD:127 [facility] Lyteson 12-27-2022 Anion gap [Moles/Vol] 14 mmol/L Normal 6-16 [facility] Comment on above: Performed By: #### 2 552699, 79238543, 0713457 #### [facility] [address] [place] [address] Chloride [Moles/Vol] 102 mmol/L Normal 101-111 [facility] Comment on above: Performed By: #### 2 117907, 92899146, 8577338 #### [facility] [address] [place] [address] CO2 [Moles/Vol] 19 mmol/L Low 21-31 [facility] Comment on above: Performed By: #### 2 004112, 43119339, 6177309 #### [facility] [address] [place] [address] Potassium [Moles/Vol] 3.4 mmol/L Low 3.5-5.3 [facility] Comment on above: Performed By: #### 2 837776, 62431790, 6663230 #### [facility] [address] [place] [address] Sodium [Moles/Vol] 132 mmol/L Low 135-145 [facility] Comment on above: Performed By: #### 2 058714, 23273187, 6597896 #### [facility] [address] [place] [address] Main OR PACU I Recordon Main OR PACU I Record PACU Phase I Document Type FT Summary Primary Physician: Danis Garcia MD Finalized Date/Time: 12/27/22 18:58:52 Pt. Name: BETSY FERRERA/Sex: 1985 Female Med Rec #: [id number] Physician: Danis Garcia MD Financial #: [id number] Pt. Type: I Room/Bed: 02/ Admit/Disch: 12/27/22 [...] By: Taryn Mcguire RN 12/27/22 18:58 Normal [facility] Morphon 12-27-2022 Anisocytosis Ql (Bld) Present Normal [facility] Comment on above: Order Comment: Order Added by Discern Expert. Performed By: #### 2 [id number], [id number], [id number] #### [facility] [address] [place] [address] Elliptocytes LM Ql (Bld) Present Normal [facility] Comment on above: Order Comment: Order Added by Discern Expert. Performed By: #### 2 494541, [id number], [id number] #### [facility] [address] [place] [address] Hypochromia Auto Ql (Bld) Present Normal [facility] Comment on above: Order Comment: Order Added by Discern Expert. Performed By: #### 2 544035, [id number], [id number] #### [facility] [address] [place] [address] Microcytes Ql (Bld) Present Normal [place] Comment on above: Order Comment: Order Added by Discern Expert. Performed By: #### 2 467441, [id number], [id number] #### [facility] [address] [place] [address] Morphology Beltran (Bld) [Interp] See Morphology Normal [facility] Comment on above: Order Comment: Order Added by Discern Expert. Result Comment: Resu lts are consistent with previous path review performed on 11/24/22. Reviewed by KD. Performed By: #### 2 701848, [id number], 7537530 #### [facility] [address] [place] [address] PT & PTTon 12-27-2022 aPTT Coag (PPP) [Time] 31.1 second(s) Normal 25.1-36.5 [facility] Comment on above: Result Comment: Para meter 15 days - 4 weeks 1 - 5 months 6 - 11 months 1 - 5 years 6 - 10 years 11 - 17 years PTT Mean: 35.4 (27.6-45.6) Mean: 33.5 (24.8-40.7) Mean: 32.4 (25.1-40.7) Mean: 31.6 (24.0-39.2) Mean: 31.6 (26.9-38.7) Mean: 31.0 (24.6-38.4) Pediatric Reference ranges were obtained from a study by oYhan Patton et al. prepared from 1437 samples obtained at 7 different centers using the same coagulation reagent and instrumentation as [facility]. Currently there are no coagulation studies available worldwide for children to 14 days, and no normal ranges. Heparin therapeutic range (represented by Anti-Factor Xa activity of 0.2 - 0.4 U/mL) corresponds to PTT of 56.6 - 109.0 sec. Performed By: #### 2 790899, [id number], [id number] #### [facility] [address] [place] [address] INR Coag (PPP) [Relative time] 1.0 {INR} Invalid Interpretation Code [facility] Comment on above: Result Comment: INR results are specifically intended to assess patients stabilized on long-term Anticoagulation therapy suggested INR?s ?Less Intensive Anticoagulation? 2.0 ? 3.0 Conventional Range 3.0 ? 4.5 Performed By: #### 2 337494, [id number], 7195987 #### [facility] [address] [place] [address] PT Coag (PPP) [Time] 10.9 second(s) Normal 9.4-12.5 [facility] Comment on above: Result Comment: 15 d [...] the same coagulation reagent and instrumentation as [facility]. Currently there are no coagulation studies available worldwide for children to 14 days, and no normal ranges. Performed By: #### 2 989958, [id number], [id number] #### [facility] [address] [place] [address] Recordson Records [id number] #[id number]:[id number] Normal [facility] RCOon 12-27-2022 # of Units 2 Invalid Interpretation Code [facility] Comment on above: Order Comment: 2 uni ts on hold please Performed By: #### 1 [id number] ####[facility] [address] [place] [address] Date Required 12-27-22 Invalid Interpretation Code [facility] Comment on above: Order Comment: 2 uni ts on hold please Performed By: #### 1 [id number] ####[facility] [address] [place] [address] Product Type None Required Invalid Interpretation Code [facility] Comment on above: Order Comment: 2 uni ts on hold please Performed By: #### 1 [id number] ####[facility] [address] [place] [address] U Drug Screenon 12-27-2022 Amphetamines Screen method >1000 ng/mL Ql (U) Negative Normal Negative [facility] Comment on above: Result Comment: Nega tive Cutoff: <1000 ng/mL Performed By: #### 2 757610 ####[facility] [address] [place] [address] Barbiturates Screen Ql (U) Negative Normal Negative [facility] Comment on above: Result Comment: Nega tive Cutoff: <200 ng/mL Performed By: #### 2 530782 ####[facility] [address] [place] [address] Benzodiazepines Ql (U) Negative Normal Negative [facility] Comment on above: Result Comment: Nega tive Cutoff: <200 ng/mL Performed By: #### 2 103834 ####[facility] [address] [place] [address] Cocaine Ql (U) Negative Normal Negative [facility] Comment on above: Result Comment: Nega tive Cutoff: <300 ng/mL Performed By: #### 2 380632 ####[facility] [address] [place] [address] Opiates Screen Ql (U) Negative Normal Negative [facility] Comment on above: Result Comment: Nega tive Cutoff: <300 ng/mL Performed By: #### 2 737594 ####[facility] [address] [place] [address] Phencyclidine Screen method >25 ng/mL Ql (U) Negative Normal Negative [facility] Comment on above: Result Comment: Nega tive Cutoff: <25 ng/mL These drug screen results are to be used for medical (i.e., treatment) purposes only. Unconfirmed drug screening results must not be used for non-medical purposes (e.g., employment testing, legal testing). Performed By: #### 2 148446 ####[facility] [address] [place] [address] Tetrahydrocannabinol Screen method >50 ng/mL Ql (U) Negative Normal Negative [facility] Comment on above: Result Comment: Nega tive Cutoff: <50 ng/mL Performed By: #### 2 725637 ####[facility] [address] [place] [address] UA With Cult Reflexon 2022 Bacteria LM Ql (Urine sed) TRACE Normal Trace [facility] Comment on above: Performed By: #### 2 211998, [id number], 3192404 #### [facility] [address] [place] [address] Bilirubin Ql (U) Negative Normal Negative [facility] Comment on above: Performed By: #### 2 892092, 75474105, 3069335 #### [facility] [address] [place] [address] Clarity (U) CLEAR Normal Clear [facility] Comment on above: Performed By: #### 2 529106, [id number], 0039219 #### [facility] [address] [place] [address] Color (U) STRAW Invalid Interpretation Code [facility] Comment on above: Performed By: #### 2 366545, 96844893, 1752128 #### [facility] [address] [place] [address] Epithelial cells.squamous LM.HPF (Urine sed) [#/Area] 0-2 Normal 0-2 [facility] Comment on above: Performed By: #### 2 502795, 44931485, 5029870 #### [facility] [address] [place] [address] Glucose Test strip (U) [Mass/Vol] Negative Normal Negative [facility] Comment on above: Performed By: #### 2 486306, [id number], 2300351 #### [facility] [address] [place] [address] Hemoglobin Ql (U) Negative Normal Negative [facility] Comment on above: Performed By: #### 2 423934, 78663778, 1436996 #### [facility] [address] [place] [address] Ketones (U) [Mass/Vol] Negative Normal Negative [facility] Comment on above: Performed By: #### 2 637014, 28879754, 2335131 #### [facility] [address] [place] [address] [place].plasma/[place]. RBC (Bld) [Mass ratio] 0-3 Normal 0-3 [facility] Comment on above: Performed By: #### 2 615307, 22985527, 6507846 #### [facility] [address] [place] [address] Nitrite Ql (U) Negative Normal Negative [facility] Comment on above: Performed By: #### 2 748301, 29365074, 1530992 #### [facility] [address] [place] [address] pH (U) 6.5 [pH] Invalid Interpretation Code 5.0-9.0 [facility] Comment on above: Performed By: #### 2 041366, 74183950, 5436423 #### [facility] [address] [place] [address] Protein (U) [Mass/Vol] Negative Normal Negative [facility] Comment on above: Performed By: #### 2 090210, 70306818, 1495628 #### [facility] [address] [place] [address] Specific gravity (U) [Rel density] <=1.005 Invalid Interpretation Code 1.005-1.030 [facility] Comment on above: Performed By: #### 2 478833, 85728820, 0448944 #### [facility] [address] [place] [address] Type of Urine collection method Bautista Normal [facility] Comment on above: Performed By: #### 2 601153, 63512753, 1293403 #### [facility] [address] [place] [address] Urobilinogen Qn (U) 0.2 {Amelie'U}/dL Normal 0.0-1.0 [facility] Comment on above: Performed By: #### 2 055027, 02116360, 9184439 #### [facility] [address] [place] [address] WBC Auto Ql (U) TRACE Abnormal Negative [facility] Comment on above: Performed By: #### 2 598382, 23728004, 6509630 #### [facility] [address] [place] [address] WBC LM.HPF (Urine sed) [#/Area] 0-5 Normal 0-5 [facility] Comment on above: Performed By: #### 2 227489, 68903706, 3210575 #### [facility] [address] [place] [address] Bilirubin Ql (U) Negative Normal Negative [facility] Comment on above: Performed By: #### 1 1298692, 1636134 #### [facility] [address] [place] [address] Clarity (U) CLEAR Normal Clear [facility] Comment on above: Performed By: #### 1 6106507, 4407462 #### [facility] [address] [place] [address] Color (U) YELLOW Normal Yellow [facility] Comment on above: Performed By: #### 1 1241325, 4426075 #### [facility] [address] [place] [address] Epithelial cells.squamous LM.HPF (Urine sed) [#/Area] 0-2 Normal 0-2 [facility] Comment on above: Performed By: #### 1 3738295, 7413826 #### [facility] [address] [place] [address] Glucose Test strip (U) [Mass/Vol] Negative Normal Negative [facility] Comment on above: Performed By: #### 1 0221898, 4549360 #### [facility] [address] [place] [address] Hemoglobin Ql (U) 1+ Abnormal Negative [facility] Comment on above: Performed By: #### 1 3322391, 9635688 #### [facility] [address] [place] [address] Ketones (U) [Mass/Vol] Negative Normal Negative [facility] Comment on above: Performed By: #### 1 2830258, 6767979 #### [facility] [address] [place] [address] [place].plasma/[place]. RBC (Bld) [Mass ratio] 0-3 Normal 0-3 [facility] Comment on above: Performed By: #### 1 0970974, 8950414 #### [facility] [address] [place] [address] Mucus Ql (Urine sed) TRACE Normal [facility] Comment on above: Performed By: #### 1 4678324, 5425805 #### [facility] [address] [place] [address] Nitrite Ql (U) Negative Normal Negative [facility] Comment on above: Performed By: #### 1 7423476, 1139542 #### [facility] [address] [place] [address] pH (U) 7.0 [pH] Invalid Interpretation Code 5.0-9.0 [facility] Comment on above: Performed By: #### 1 5428430, 2927302 #### [facility] [address] [place] [address] Protein (U) [Mass/Vol] Negative Normal Negative [facility] Comment on above: Performed By: #### 1 7519928, 9468017 #### [facility] [address] [place] [address] Specific gravity (U) [Rel density] <=1.005 Invalid Interpretation Code 1.005-1.030 [facility] Comment on above: Performed By: #### 1 7517727, 8544436 #### [facility] [address] [place] [address] Type of Urine collection method Random Urine Normal [facility] Comment on above: Performed By: #### 1 4800978, 0077822 #### [facility] [address] [place] [address] Urobilinogen Qn (U) 0.2 {Amelie'U}/dL Normal 0.0-1.0 [facility] Comment on above: Performed By: #### 1 1493923, 4161019 #### [facility] [address] [place] [address] WBC Auto Ql (U) 1+ Abnormal Negative [facility] Comment on above: Performed By: #### 1 9729581, 0643456 #### [facility] [address] [place] [address] WBC LM.HPF (Urine sed) [#/Area] 0-5 Normal 0-5 [facility] Comment on above: Performed By: #### 1 5770086, 6177681 #### [facility] [address] [place] [address] eGFRon 12-27-2022 GFR/1.73 sq M.predicted among blacks MDRD (S/P/Bld) [Vol rate/Area] mL/min/{1.73_m2} Normal >=59 [facility] Comment on above: Order Comment: Order added by Discern Expert. Result Comment: eGFR is race adjusted. AA=. Performed By: #### 2 576910, 97751430, 9898783 #### [facility] [address] [place] [address] GFR/1.73 sq M.predicted among non-blacks MDRD (S/P/Bld) [Vol rate/Area] mL/min/{1.73_m2} Normal >=59 [facility] Comment on above: Order Comment: Order added by Discern Expert. Result Comment: Team Cdl Driver lex kidney disease could be indicated at eGFR's of less than 60 mL/min/1.73m2. Kidney failure is indicated at less than 15 mL/min/1.73m2. Performed By: #### 2 249199, 95816209, 0135060 #### [facility] [address] [place] [address] Coding Summary.on 11-28-2022 Coding Summary. CD:[id number] Gh0bWw+PGhlYWQ+PE1FV UJkY43suSOngD5BX5jIJ U0WAWVKHAPNZK1XTI3fm QM6ASmfR7ZmlhFr EbgpwICtFM11KLn0EBC3 mIlqPQytpI4nrYQlR3h1 UgCmOP44jL82NQumGJPx JkK8OqTkdaadiSOp R7idFiDdhHYeEvr+PHRh YmxlIHdpZHRoPScxMDAl GbEejDxeTB8kMo0wNBCf LWNvbGxhcHNlOiBj g5mmUGBeCWmyXD7rtDln Q9OmgNZ3JMRaa9q2Uo24 dHI+CPVgXRM2aDhzJVce m226IhLmz4poEAW8 sSAhRRkvYQR3N67fp7C7 NEEsXBNdYWN1eOB4sE0d zXtoxxuiV7IqlGZhLuY3 PCT7wMVyaU9ryAcm skkosC2uMcb+B32TOI3M WIGLMY1JRwh7C5CtGhrb dHI+MD57ZDPbFB64cCBf rQNru9vvtCd2HjIh DOBhNNO5fCidECxzi1Nz HIYaL68plOZem7U8NHFy zGbwxCZvJcUxdBN8jZ2u JYraksnks7texvef Mkxhu2fgdj30hC75J82i UVycVWLxWBF7YUNdXRWg kPygpg5sxY7hTg8+IDxj q5hip7bppKu4KgZe HAEubqSrnOleZEL0k1Dp Kz03D7IqsEmyg6NlReg8 ja67eYDha9G3lZV0GIcw MZBsjQ5nSWieYpL9 ZOUaLeFuhZ20wVTuMEil Ok5opZtxzKyjZQ0vZUQw mznlCOLjnO6vKMMmmOAi zVyeLL4qKFHftzuf p202FeRzAQV7BASqoJQr A4OskH4rFoQsOLMwSDOv S3VycXDvAZboJ703OUmo QaS0OSJzzzNkD3Tr NUWnhCvcXmR9h9V5Nh2Y o6LiqssoSZG6AMbiEEYf YbU3UaMiCkO7B7BwAbm4 NJZggDgwDP0oY8Un PUNdkxpcyrijvWX1RIBw CKPaeZ65aKGfSPaoRm6s h7R8e808ELPdWRKicY16 Mw2fgPuxOUUkqXSZ kZ4jwxatn3lnbwziHjIt ZTCcEJo8MIb5OKKdlUna DtJtHUX2VrN9BIN4aIBp pW0kyKvcvguumR1h Oyc+F18hrM0lCHF1HLM3 lcasHBXjpaAnXK19UH74 P0OqZtwxlAOgnQO+PGRp jqErsLrhYJ6jKbNr i4hbg6InLYgrC4UpPJQf LImyNyd9DNFxWTK2jME0 vT7lFAVpHGune1B6nCZ1 I1TkamPonh2pz1mn OMKjMBieB12ucMUwm3I9 QYPyoNU9PZLpjNocJqNw fN13Jxa+SQMaoRnnq2Dx Ccucy5cze9mswYt8 IjMwJSIgdmFsaWduPSJ0 s2YdUn57N81vWQsaOGLh RUItOIMaVYCfiAksnq1c xP5dWi3+PGNvbCB3 dHR4gT0bSTUyEdY6XSxm T460YtNreXAbAxyol1qk l4ldzQp9KfEsZEWitvIa tVegGNZ2q4QeIy62 G39vQDujWEUjYHAsRWFb ZDQmbJukil1iqC1xRq0+ XV0wm0eeap76mI04sET+ QUTaQIQ6zEulBDru FCVjoP0yPYpvVmL9LEXq AgFyhA40yGUaXIojEl0v sZpelHrfFB6wZLYhbnks s974VlYqg6ykMJAf bUAfFUyfOZK1T72nj8I9 VTFzOGJaMAJ6aMN0uN4x bGlnbjogbGVmdDsgdmVy vWyvBSheLGlqC634 IHRvcDsnPlBhdGllbnQg GbXeOXn5V8VdHzb3PFJc cHunEH6nqFKqNTlwPk5m zEvkoZnuWZ6zIQRd rdvgn051ZwSpm0mvNPHn vOPoIHypHXQ3H22nu5D9 CBCoJFHxVJN2fHA8pT3l bGlnbjogbGVmdDsg juAitZgeGBxgNXziE953 IHRvcDsnPkJpcnRoIERh eZA8KK90GJ57wLXdm1B1 zRA4L3FeAIWusnxf prxxbHL5XKRySGXnjC95 Nd4ckYwzNk9pOTCaPNK9 KFJcgQAlR1HkdT4uIcJh ACSvMODjC2WqeLVr XUliM028RLwyByG9IFLt asMmS2QfJHGdvQhvAaA5 z3K8Pw2EE4V6WU43QS44 eMQxk3J9nYK3W3Tt DBQlopkijmynmCB7GOYt TXXeuC86Nn1egCimPf5c QDTaDAK1VLEmqKIqP3Ty wR9xUvQpJMJmKCMp G9QftOWhKVebO811JNtk NoC4FREeznExB9LmQIBg bPexHsH6z3G8Ld8AGYz5 CB56GV77cDZia4D8 vIW0W0QwGDYmhoowrfyn lWZ6WGXbZPTgpK85Hk5j gZsbBh1hQVThXEX4NZBp aMTtW4IwqF3pWuXs NYNmFTWiK2IqwSFcYZcx J879LTxaUaM9BTYutrKf P1LbIRNqiEgbBeJ8v4D0 Oc8PLDAwHM41ZHY1 dUD5NJ68JZ68U7DkOoix dGFibGU+PHRhYmxlIHdp ZHRoPScxMDAlJyBzdHls GO4wPr8wVSWlEEGv oKdihSVxGoKtd7uyXBSz TQjkAX4tpSliA6NshYB0 NXEoq3m6Xr75M45vD3Gb dXA+VTLwsPJ8yCS6 rT7tQmXgBwG1DOgkK216 OsCteWHiKjgfo8xgx5dn qBz1QpW0RWOejgDhfCzf YXE0d3CsHi09P43p IHdpZHRoPSIxNSUiIHZh yTqrve9krM2gKf4+PGNv pWZ7fLR7uR3vAwHdRhN7 VQqzU257CxTbiWPq Vbkte6jsi1vhzXh4VdQv GJKlgqFjrTbjMSJ6l8Uz Ca79A8RsrMmro5FjTbi9 ex13sNUlq2S2kEJ8 H7FgAMJuontwdKQpzAjc QL7kIGTmeisnPIDaiZ8i YBGlV2y7GzZuDbV6XSaj M0XrwnS2VXQdyRRg BIgcQWH0E43jm3S3BYKq FLEcGDT6zKX7zM0lkXyq bjogbGVmdDsgdmVydGlj NCweQApzJ905FABw gOqeBYBxwV9oOMWhhABo oLglYC3oOWUgkznuCiNH TkEsIFBBTUVMQTwvdGQ+ NNToHCP1aMlwMUvb FLXxrK1aHZQhL7k4JoLe DbB7TEztR0VuNRGbirme Zx67uU6pSfUsCiP7IRjk I5ViujK5RLOgmGFd XMfnMKC7L38wb3B5YXDy QOQkFNQ1pXU2zA8tpQeu bjogbGVmdDsgdmVydGlj UVcrNTvhE975QLMc lNrjMbFjBtYkNkX2MZx2 V7DxDfb7VIHghOcqHP4a gJPwUCxjEc4rvVkqgJsl UX9sMZBesamfDYFu aW4lSXNufDWtvFvjFB4b ZAPzzqkyc437XeChMOC1 OVDvhEYbE4RcrO9eFiYp OYCfMVShH3CmcBIw PBuoE136FYmyLyX0MLEw iyZmS5JlHNKtbWtuSgX0 z0A9Cr2gYQSBFIYswqas dGQ+EUJyPFQ0tDfb ORoyJPKxvK7fBWXtB9t5 KdXwRnX8LYpoI1SuRVVj kdboNi79zN9oGkIfQwE9 GCviP3XtyrI3VTXd vFWkOHtdODV1W34jm9Y7 JNBxXWAlUWN5yXO7nM9a bGlnbjogbGVmdDsgdmVy bPjxDEgaDQhhV461 IHRvcDsnPkZlbWFsZTwv dGQ+BHFmMEI0iVhnRXjq YDAjkB9rNHDoU5q3HgQy XjM2MAdfR8EzZJSu khmbLt74cA2cVmErRxL4 JNtuA2OdpsK4IHLzwLNn DDyoMUC8S64ri3P3JQIi IQVmGQY2zCD1cQ5e bGlnbjogbGVmdDsgdmVy fPeaNFmvQPvgT382NHTj bTswNo67wFQouAvbhuK0 I0YpHbyzgWU+PC90 GCMkAB75vVJouPGvs7mx cJe8MiRbYWKyDRO9zJyv OYjch3VmOENhC16kyZKh i1X5ONMgrVlgsCAa FiFokAT6jA6eIJiidfit j3rotqaoOmgrh3fipi89 fY53X72dMOeaRQTpIEUh BXOoRJIwwGacjx0o bG9eMv0+LDGkxVC2cCS6 iN6vPxLnAdS8PAxaP176 XbJhiCHuMpaio7oru8xk mJp1XiJaYCQaxcYj oGcrYZM0u5UiYt11X62m IHdpZHRoPSIyMCUiIHZh jGwyrk9ykK4qZw6+PC9j y3ibzn20eY02aVN+ NYXiCGU4hYyhZDhlKABs pI7lUActNgI1OXLsErGz lO34yYPoYIcwXz1heXgd zIvhIX5vHHSjycqr h684JyDnm5jbTLBkfKCa FOwkVTD9M97fv8Z8IPEp UCEeFAS4iDH4gG0waMud bjogbGVmdDsgdmVy jSlsVWvnUIpdI642FDOs zQesNmAmvOAwN2kdkuZW OJ5iUymzeZX+PHRkIHN0 gXpzHZcxVGWhvZ7w OZYoL9c1IeDbTlN2BVnq V7WeepR5QTSknJFcWDRg zPESiO8csfkhe5ruhfgm NjOpIEJqSGe8SLa4 NZEydHwpNhEtLAH2ZuR6 EQK7qRYasM7skGvkzjob iI7fAcu+RklOOjwvdGQ+ UXKeQRN0zTcrUTsa GLEztX2uMVImX2n0OqCg GvC8BNpgW1VrocH3CNKz pPPkOAPkuHFUxF7vyweu e0jyjoynIhHrVYEh IMl7NAo8QPFacZbtLvZq SDZ8FdT1IAA3aZWbhB2i tRrunlljaD5dPpv+TVJO OjwvdGQ+PHRkIHN0 jLdwNKpmQENayH0xXRTz Q4u8YcAfDgY7BFgxC6Yz pcU6SMUowJYlGBVtbDAU mI6howefy1wpuwzs UiFpHAVdLDr1KEo5LBOw rWeoBbBgZMN9RsR7OKG8 fTRyoZ6byOzosroekJ8u Oyc+TGA6BUD8AW80 YF19N1UqNxqjkOAxcSN+ PHRhYmxlIHdpZHRoPScx DMMvGdBpqMksLU8wOg2c ZGVyLWNvbGxhcHNl OiBj (more content not included)... Normal [facility] Path. Reviewon 11-25-2022 Path Review Anemia with anisocytosis, microcytes and polychromasia. Clinical correlation and iron studies are indicated to determine etiology as clinically indicated. Invalid Interpretation Code [facility] Comment on above: Order Comment: Order Added by Discern Expert. Performed By: #### 2 373584, [id number], [id number] #### [facility] [address] [place] [address] CBC w/Indiceson 11-24-2022 Erythrocyte distribution width (RBC) [Ratio] 20.7 % High 10.9-14.2 [facility] Comment on above: Performed By: #### 2 848169, 08300059, 2759129 #### [facility] [address] [place] [address] Hematocrit (Bld) [Volume fraction] 26.0 % Low 34.0-46.0 [facility] Comment on above: Performed By: #### 2 215187, 88789182, 4993375 #### [facility] [address] [place] [address] Hemoglobin (Bld) [Mass/Vol] 7.7 g/dL Low 12.0-16.0 [facility] Comment on above: Performed By: #### 2 405275, 75631745, 6012207 #### [facility] [address] [place] [address] MCH (RBC) [Entitic mass] 18.6 pg Low 27.0-34.0 [facility] Comment on above: Performed By: #### 2 116889, 24267883, 2491390 #### [facility] [address] [place] [address] MCHC (RBC) [Mass/Vol] 29.6 g/dL Low 31.4-36.0 [facility] Comment on above: Performed By: #### 2 213402, 90172591, 2166216 #### [facility] [address] [place] [address] MCV (RBC) [Entitic vol] 62.8 fL Low 80.0-100.0 [facility] Comment on above: Performed By: #### 2 410125, 51898844, 6350915 #### [facility] [address] [place] [address] Platelet mean volume (Bld) [Entitic vol] 6.0 fL Low 6.4-10.8 [facility] Comment on above: Performed By: #### 2 [id number], [id number], [id number] #### [facility] [address] [place] [address]4811 Platelets (Bld) [#/Vol] 484.0 E9/L Normal 150.0-500.0 [facility] Comment on above: Performed By: #### 2 [id number], [id number], [id number] #### [facility] [address] [place] [address] 82350 RBC (Bld) [#/Vol] 4.1 E12/L Low 4.3-5.9 [facility] Comment on above: Performed By: #### 2 [id number], [id number], [id number] #### [facility] [address] [place] [address] WBC corrected for nucl RBC Auto (Bld) [#/Vol] 8.0 E9/L Normal 4.0-11.0 [facility] Comment on above: Performed By: #### 2 [id number], [id number], [id number] #### [facility] [address] [place] [address] Consent for Treatmenton Consent for Treatment [id number] #1.00CD:127 Normal [facility] HEMATOLOGYOrdered By: Eri Muñiz on 11-24-2022 Anisocytosis [...] E9/L Normal 150. 0 - 500.0 E9/L [facility] HemeAutoSS Polychromasia LM Ql (Bld) Present (11/24/22 1:51 PM) Normal [facility] HemeManSS RBC (Bld) [#/Vol] 4.1 E12/L Low 4.3 - 5.9 E12/L [facility] HemeAutoSS WBC corrected for nucl RBC Auto (Bld) [#/Vol] 8.0 E9/L Normal 4.0 - 11.0 E9/L [facility] HemeAutoSS Morphon 11-24-2022 Anisocytosis Ql (Bld) Present Normal [facility] Comment on above: Order Comment: Order Added by Discern Expert. Performed By: #### 2 [id number], [id number], [id number] #### [facility] [address] [place] [address] Hypochromia Auto Ql (Bld) Present Normal [facility] Comment on above: Order Comment: Order Added by Discern Expert. Performed By: #### 2 509798, [id number], [id number] #### [facility] [address] [place] [address] Microcytes Ql (Bld) Present Normal [place] Comment on above: Order Comment: Order Added by Discern Expert. Performed By: #### 2 [id number], [id number], [id number] #### [facility] [address] [place] [address] Morphology Beltran (Bld) [Interp] See Morphology Normal [facility] Comment on above: Order Comment: Order Added by Discern Expert. Performed By: #### 2 726704, [id number], [id number] #### [facility] [address] [place] [address] Polychromasia LM Ql (Bld) Present Normal [facility] Comment on above: Order Comment: Order Added by Discern Expert. Performed By: #### 2 [id number], [id number], [id number] #### [facility] [address] [place] [address] Physician Orderon 11-24-2022 Physician Order [id number]#1.00CD:127 Normal [facility] Physician Orderon 11-13-2022 Physician Order [id number]#1.00CD:127 Normal [facility] RPR with Conf Rfxon 11-03-20 Reagin Ab RPR Ql (S) Non-Reactive Invalid Interpretation Code Non Reactive [facility] Comment on above: Result Comment: Perf ormed at: [facility] [address] [id number] PhD Ethan Donis Performed By: #### 1 [id number], [id number], [id number] #### [facility] [facility] [address] [place] [address] CHEMISTRYOrdered By: SYSTEM SYSTEM on 11-02-2022 Glucose 1 Hr post 50 g glucose PO [Mass/Vol] 71 mg/dL Normal 55 - 140 mg/dL [facility] Remisol Consent for Treatmenton 10-20 Consent for Treatment [id number] 21 [id number] #[id number]:127 Normal [facility] Gest Scr Glu 1 Hron 11-02-20 22 Glucose [Mass/Vol] 71 mg/dL Normal 55-140 [facility] Comment on above: Result Comment: Posi tive Screen =1 HR > 140mg/dL Performed By: #### 1 [id number], [id number], [id number] #### [facility] [address] [place] [address] HEMATOLOGYOrdered By: Shay Sunshine on 11-02-2022 Hematocrit (Bld) [Volume fraction] 23.1 % Low 34.0 - 46.0 % [facility] HemeAutoSS Hemoglobin (Bld) [Mass/Vol] 7.0 g/dL Low 12.0 - 16.0 gm/dL [facility] HemeAutoSS Hct & Hgbon 11-02-2022 Hematocrit (Bld) [Volume fraction] 23.1 % Low 34.0-46.0 [facility] Comment on above: Performed By: #### 1 [id number], [id number], [id number] #### [facility] [address] [place] [address] Hemoglobin (Bld) [Mass/Vol] 7.0 g/dL Low 12.0-16.0 [facility] Comment on above: Performed By: #### 1 [id number], [id number] #### [facility] [address] [place] [address] Dipstick and Microscopicon 1 12-29-2021 Appearance (U) Cloudy Critically abnormal Clear [facility] Comment on above: Order Comment: Name Collection Type:: Clean-Voided Midstream Performed By: #### O BUDS, ADDONUAPLUS #### [facility] [address] [place] [address] [place] Bacteria,Urine None Seen Normal None Seen [facility] Comment on above: Order Comment: Name Collection Type:: Clean-Voided Midstream Performed By: #### O BUDS, ADDONUAPLUS #### [facility] [address] [place] [address] [place] Bilirubin,Urine Negative Normal Negative [facility] Comment on above: Order Comment: Name Collection Type:: Clean-Voided Midstream Performed By: #### O BUDS, ADDONUAPLUS #### [facility] [address] [place] [address] [place] Color (U) Yellow Normal Yellow [facility] Comment on above: Order Comment: Name Collection Type:: Clean-Voided Midstream Performed By: #### O BUDS, ADDONUAPLUS #### [facility] [address] [place] [address] [place] Glucose Ql (U) Normal Normal Normal [facility] Comment on above: Order Comment: Name Collection Type:: Clean-Voided Midstream Performed By: #### O BUDS, ADDONUAPLUS #### [facility] [address] [place] [address] [place] Hyaline Casts,Urine 0-8 Normal 0-8 [place] Comment on above: Order Comment: Name Collection Type:: Clean-Voided Midstream Result Comment: PERF ORMED BY: [place] [address] PATHOLOGIST [employer] KARLI PLAZA M.D. Performed By: #### O BUDS, ADDONUAPLUS #### [facility] [address] [place] [address] [place] Ketones Ql (U) Negative Normal Negative [facility] Comment on above: Order Comment: Name Collection Type:: Clean-Voided Midstream Performed By: #### O BUDS, ADDONUAPLUS #### [address] Leukocyte esterase Test strip Ql (U) 3+ High Negative [facility] Comment on above: Order Comment: Name Collection Type:: Clean-Voided Midstream Performed By: #### O BUDS, ADDONUAPLUS #### [place] [address] [place] Nitrite,Urine Negative Normal Negative [facility] Comment on above: Order Comment: Name Collection Type:: Clean-Voided Midstream Performed By: #### O BUDS, ADDONUAPLUS #### [place] [address] [place] Occult Blood,Urine Negative Normal Negative [facility] Comment on above: Order Comment: Name Collection Type:: Clean-Voided Midstream Result Comment: PERF ORMED BY: [place] [address] PATHOLOGIST [employer] KARLI PLAZA M.D. Performed By: #### O BUDS, ADDONUAPLUS #### [facility] [address] [place] [address] [place] pH (U) 6.5 [pH] Normal 5.0-9.0 [facility] Comment on above: Order Comment: Name Collection Type:: Clean-Voided Midstream Performed By: #### O BUDS, ADDONUAPLUS #### [place] [address] [place] Protein,Urine Negative Normal Negative [facility] Comment on above: Order Comment: Name Collection Type:: Clean-Voided Midstream Performed By: #### O BUDS, ADDONUAPLUS #### [facility] [address] [place] [address] RBC,Urine None Seen Normal 0-4 [facility] Comment on above: Order Comment: Name Collection Type:: Clean-Voided Midstream Performed By: #### O BUDS, ADDONUAPLUS #### [address] Specificy [place],Urine 1.005 Normal 1.001-1.030 [facility] Comment on above: Order Comment: Name Collection Type:: Clean-Voided Midstream Performed By: #### O BUDS, ADDONUAPLUS #### [address] Squamous Epithelial Cell,Urine 1-2 Normal 0-2 [facility] Comment on above: Order Comment: Name Collection Type:: Clean-Voided Midstream Performed By: #### O BUDS, ADDONUAPLUS #### [address] Urobilinogen,Urine Normal Normal Normal [facility] Comment on above: Order Comment: Name Collection Type:: Clean-Voided Midstream Performed By: #### O BUDS, ADDONUAPLUS #### [address] WBC,Urine 3-4 Normal 0-4 [facility] Comment on above: Order Comment: Name Collection Type:: Clean-Voided Midstream Performed By: #### O BUDS, ADDONUAPLUS #### [address] OB Urine Drug Screen (NO THC )on 10-28-2022 Amphetamine Screen,Urine Negative Normal Negative [facility] Comment on above: Performed By: #### O BUDS, ADDONUAPLUS #### [address] Barbiturate Screen,Urine Negative Normal Negative [facility] Comment on above: Performed By: #### O BUDS, ADDONUAPLUS #### [address] Benzodiazepines Screen,Urine Negative Normal Negative [facility] Comment on above: Performed By: #### O BUDS, ADDONUAPLUS #### [facility] [address] [place] [address] Cocaine Screen,Urine Negative Normal Negative [facility] Comment on above: Performed By: #### O BUDS, ADDONUAPLUS #### [facility] [address] [place] [address] Opiate Screen,Urine Negative Normal Negative [place] Comment on above: Performed By: #### O BUDS, ADDONUAPLUS #### [address] Phencyclidine Screen, Urine Negative Normal Negative [facility] Comment on above: Result Comment: Thes e are unconfirmed results and should not be used for legal purposes. Drug Cut-Off Concentration: AMPH 1000 ng/mL RENEA 200 ng/mL ANA LUISA 200 ng/mL COCM 300 ng/mL OP 300 ng/mL PCP 25 ng/mL PERFORMED BY: [place] [address] PATHOLOGIST [employer] KARLI PLAZA M.D. Performed By: #### O BUDS, ADDONUAPLUS #### [address] Amphetamine Screen Ql (U)Ord ered By: SHANIQUE Wetzel on 10-27-2022 Amphetamines Ql (U) Negative Negative [place] Automated erythrocytes count in urine sediment (number/area)Ordered By: SHANIQUE Wetzel on 10-27-2022 RBC Auto (Urine sed) [#/Area] None seen [HPF] 0-4 [facility] Automated leukocytes count i n urine sediment (number/area)Ordered By: SHANIQUE Wetzel on 10-27-2022 WBC Auto (Urine sed) [#/Area] 3-4 [HPF] 0-4 [facility] Barbiturates [Presence] in U rineOrdered By: SHANIQUE Wetzel on 10-27-2022 Barbiturates Ql (U) Negative Negative [place] Benzodiazepines [Presence] i n UrineOrdered By: SHANIQUE Wetzel on 10-27-2022 Benzodiazepines Ql (U) Negative Negative Fi [facility] Bilirubin Test strip Ql (U)O rdered By: SHANIQUE Wetzel on 10-27-2022 Bilirubin Ql (U) Negative Negative [facility] Color Auto (U)Ordered By: MD FRANCES Wetzel on 10-27-2022 Color (U) Yellow Yellow [facility] Ketones Auto test strip (U) [Mass/Vol]Ordered By: SHANIQUE Wetzel on 10-27-2022 Ketones (U) [Mass/Vol] Negative Negative [facility] - Drug toxicology Ordered By: HSANIQUE Wetzel on 10-27-2022 Opiates Ql (U) Negative Negative [facility] Laboratory - UrinalysisOrder ed By: SHANIQUE Wetzel on 10-27-2022 Hyaline casts LM Ql (Urine sed) 0-8 [LPF] 0-8 [facility] Nitrite Test strip Ql (U)Ord ered By: SHANIQUE Wetzel on 10-27-2022 Nitrite Ql (U) Negative Negative [facility] Phencyclidine Screen Ql (U)O rdered By: SHANIQUE Wetzel on 10-27-2022 Phencyclidine Ql (U) Negative Negative [facility] Comment on above: These are unconfirme d results and should not be used for legal purposes. Drug Cut-Off Concentration: AMPH 1000 ng/mL RENEA 200 ng/mL ANA LUISA 200 ng/mL COCM 300 ng/mL OP 300 ng/mL PCP 25 ng/mL Protein Auto test strip (U) [Mass/Vol]Ordered By: SHANIQUE Wetzel on 10-27-2022 Protein (U) [Mass/Vol] Negative Negative [facility] Specific gravity Auto test s trip (U) [Rel density]Ordered By: SHANIQUE Wetzel on 10-27-2022 Specific gravity (U) [Rel density] 1.005 1.001-1.030 [facility] Squamous epithelial cells de tection in urine sediment by light microscopyOrdered By: SHANIQUE Wetzel on 10-27-2022 Epithelial cells.squamous LM Ql (Urine sed) 1-2 [HPF] 0-2 [facility] Urine bacteria detection by automated methodOrdered By: SHANIQUE Wetzel on 10-27-2022 Bacteria Auto Ql (U) None seen None Seen [facility] Urine clarity by refractomet ry automatedOrdered By: SHANIQUE Wetzel on 10-27-2022 Clarity Refractometry automated (U) Cloudy Clear [facility] Urine cocaine detectionOrder ed By: SHANIQUE Wetzel on 10-27-2022 Cocaine Ql (U) Negative Negative [facility] Urine glucose measurement by automated test strip (mass/volume)Ordered By: COOKIE Wetzel on 10-27-2022 Glucose Auto test strip (U) [Mass/Vol] Normal mg/dL Normal [facility] Urine hemoglobin detection b y automated test stripOrdered By: SHANIQUE Wetzel on 10-27-2022 Hemoglobin Auto test strip Ql (U) Negative Negative [facility] Urine leukocyte esterase det ection by automated test stripOrdered By: SHANIQUE Wetzel on 10-27-2022 Leukocyte esterase Auto test strip Ql (U) 3+ Negative [facility] Urobilinogen Auto test strip (U) [Mass/Vol]Ordered By: SHANIQUE Wetzel on 10-27-2022 Urobilinogen (U) [Mass/Vol] Normal mg/dL Normal [facility] pH Auto test strip (U)Ordere d By: SHANIQUE Wetzel on 10-27-2022 pH (U) 6.5 [pH] 5.0-9.0 [facility] BLOOD BANKOrdered By: Tabby Milan on 06-08-2022 ABO/Rh Interp Positive Invalid Interpretation Code [facility] BB Subsection ABSC Gel Interp Negative (06/08/22 2:26 PM) Normal [facility] BB Subsection HEMATOLOGYOrdered By: Tabby Milan on 06-08-2022 Anisocytosis Ql (Bld) Present (06/08/22 2:26 PM) Normal [facility] HemeManSS Erythrocyte distribution width (RBC) [Ratio] 18.9 [...] SYSTEM SYSTEM on 05-24-2022 [place] [address] m[IU]/mL High 1 - 3 mIU/mL [facility] Progesterone [Mass/Vol] 13.20 ng/mL Invalid Interpretation Code [facility] PREG QUANT HCGon 05-17-2022 HCG QUANT 5303 mIU/mL Normal [facility] Comment on above: Performed By: #### P REGQNT #### [facility] [address] [place] [address] Dr. Richy Blankenship HCG RANGE SEE BELOW Normal [facility] Comment on above: Result Comment: 5-50 0-1 WEEK 40-300 1-2 WEEKS 100-1,000 2-3 WEEKS 500-6,000 3-4 WEEKS 5,000-200,000 1-2 MONTHS 10,000-100,000 2-3 MONTHS 3,000-50,000 2ND TRIMESTER 1,000-50,000 3RD TRIMESTER Performed By: #### P REGQNT #### [facility] [address] [place] [address] Dr. Richy Blankenship PREG QUANT HCGon 05-12-2022 HCG QUANT 822 mIU/mL Normal [facility] Comment on above: Performed By: #### P REGQNT #### [facility] [address] [place] [address] Dr. Richy Blankenship HCG RANGE SEE BELOW Normal [facility] Comment on above: Result Comment: 50 0-1 WEEK 40-300 1-2 WEEKS 100-1,000 2-3 WEEKS 500-6,000 3-4 WEEKS 5,000-200,000 1-2 MONTHS 10,000-100,000 2-3 MONTHS 3,000-50,000 2ND TRIMESTER 1,000-50,000 3RD TRIMESTER Performed By: #### P REGQNT #### [facility] [address] [address] [address] Richy Blankenship PREG QUANT HCGon 05-08-2022 HCG QUANT 116 mIU/mL Normal [facility] Comment on above: Performed By: #### P REGQNT #### [facility] [address] [place] [address] Dr. Richy Blankenship HCG RANGE SEE BELOW Normal [facility] Comment on above: Result Comment: 0-1 WEEK 40-300 1-2 WEEKS 100-1,000 2-3 WEEKS 500-6,000 3-4 WEEKS 5,000-200,000 1-2 MONTHS 10,000-100,000 2-3 MONTHS 3,000-50,000 2ND TRIMESTER 1,000-50,000 3RD TRIMESTER Performed By: #### P REGQNT #### [facility] [address] [place] [address] Dr. Richy Blankenship PREG QUANT HCGon 05-06-2022 HCG QUANT 40 mIU/mL Normal [facility] Comment on above: Performed By: #### P REGQNT ####[facility] [address] [address]Dr. Richy Blankenship HCG RANGE SEE BELOW Normal [facility] Comment on above: Result Comment: 50 0-1 WEEK 40-300 1-2 WEEKS 100-1,000 2-3 WEEKS 500-6,000 3-4 WEEKS 5,000-200,000 1-2 MONTHS 10,000-100,000 2-3 MONTHS 3,000-50,000 2ND TRIMESTER 1,000-50,000 3RD TRIMESTER Performed By: #### P REGQNT ####[facility] [id number] [id number]. Richy Blankenship ED Provider Noteon 8 HIM IP Note OR [place] Normal [facility] XR CHEST (2 VW)on 06-13-2018 XR [...] by:GENESIS Burksigned by:Luis Tijerina MD06/13/18inal result Normal [facility] Vital Signs Date Time Vital Sign Value Performing Clinician Faci mariel 05-16-2023 14:38-0400 Blood Pressure Location Jose STACK [facility] [place] 05-16-2023 14:38-0400 Diastolic blood pressure 80 mm[Hg] Jose STACK [facility] [place] 05-16-2023 14:38-0400 Heart rate 72 /min Jose STACK [facility] [place] 05-16-2023 14:38-0400 Respiratory rate 16 /min Jose STACK [facility] [place] 05-16-2023 14:38-0400 Systolic blood pressure 120 mm[Hg] Jose STACK [facility] [place] 10-28-2022 00:00-0500 Respiratory rate 16 /min MD Zachary Boyd Work Phone: [facility] 10-27-2022 23:52-0500 Body temperature 97.7 [degF] MD Zachary Boyd Work Phone: [facility] 10-27-2022 23:52-0500 Diastolic blood pressure 74 mm[Hg] MD Zachary Boyd Work Phone: [facility] 10-27-2022 23:52-0500 Heart rate 100 /min MD Zachary Boyd Work Phone: [facility] 10-27-2022 23:52-0500 Systolic blood pressure 124 mm[Hg] MD Zachary Boyd Work Phone: [facility] 10-27-2022 23:48-0500 Body height 165.1 cm MD Zachary Boyd Work Phone: [facility] 10-27-2022 23:48-0500 Body weight 71.21 kg MD Zachary Boyd Work Phone: [facility] Encounters Encounter Date Encounter Type Care Provider Facility Start: 05-16-2023 End: 05-17-2023 ambulatory Jose STACK Facility:[facility] Start: 05-16-2023 End: 05-16-2023 Patient encounter procedure Jose STACK [facility] Start: 04-14-2023 ambulatory Zachary Boyd Facility:[facility] Start: 04-04-2023 End: 04-05-[address] MADDIE TREJO Facility: Start: 04-01-2023 End: 04-02-2023 ambulatory VENITA TRVEIÑO Facility:[facility] Start: 12-27-2022 End: 12-31-2022 Evaluation and management of inpatient Danis Garcia Facility:[facility] Start: 11-24-2022 End: 11-25-2022 ambulatory Danis Garcia Facility:[facility] Start: 11-24-2022 End: 11-24-2022 Patient encounter procedure Danis Garcia [facility] Start: 11-02-2022 End: 11-03-2022 ambulatory Danis Garcia Facility:[facility] Start: 11-02-2022 End: 11-02-2022 Patient encounter procedure Danis Garcia [facility] Start: 10-28-2022 End: 10-28-2022 ambulatory Zachary Boyd Facility:[facility] Start: 10-27-2022 End: 10-28-2022 ambulatory MD Zachary Boyd Work Phone: [facility] Work Phone: Start: 10-27-2022 End: 10-28-2022 Patient encounter procedure MD Zachary Boyd Work Phone: [facility] - O/P Start: 06-08-2022 End: 06-08-2022 Lab Drop off Danis Garcia [facility] Start: 06-08-2022 End: 06-08-2022 Patient encounter procedure Danis Garcia [facility] Start: 05-24-2022 End: 05-24-2022 Patient encounter procedure Danis Garcia [facility] Start: 05-08-2022 End: 05-09-[address] DOCTOR RODRIGUEZ Facility:[facility] Start: 05-06-2022 End: 05-20-[address] ZACHARY BOYD . Facility:[facility] Start: 07-30-2018 End: 07-30-2018 Emergency department patient visit ZACHARY Poncho WESLEY [facility] Start: 06-13-2018 End: 06-16-2018 Patient encounter HAILEY [place] [facility] Start: 02-08-2018 End: 02-09-2018 Ambulatory [...] Activity Detail Author Start: 10-27-2022 Hospital admission [facility] Start: 10-27-2022 End: 10-28-2022 [facility] Patient Education Antepartum Dis charge Instructions ([facility]) [facility] Work Phone: Patient referral [facility] Work Phone: Immunizations Immunization Date Immunization Notes Care Provider Lloyd wellington 12-30-2022 tetanus toxoid, redu montez diphtheria toxoid, and acellular pertussis vaccine, adsorbed Jose BETTYE [facility] Comment on above: Reason for Medicatio n: Other (see comment) 10-17-2021 SARS-CoV-2 (COVID-19 ) mRNA-1273 vaccine Jose MORALESSixto [facility] [place] 10-03-2021 tetanus toxoid, redu montez diphtheria toxoid, and acellular pertussis vaccine, adsorbed MD Zachary Boyd Work Phone: [facility] Payers Date Payer Category Payer Self-pay [id number] 2018 Unknown [id number] 1987 Unknown [id number] 2.16.84 [id number] 1987 Unknown [id number] 2.16.84 [id number] 1987 Unknown [id number] 2.16.84 [id number] 1987 Unknown [id number] 2.16.84 [id number] 1987 Unknown [id number] 2.16.8 [id number] 1987 Unknown [id number] 2.16.8 [id number] 1987 Unknown [id number] 2.16.8 [id number] 1987 Unknown [id number] 2.16.8 [id number] 1987 Unknown [id number] 2.16.8 [id number] 1987 Unknown [id number] 2.16.8 [id number] 1957 Medicaid [id number] 1957 Medicaid [id number] Medicaid [employer] [id number] 501 [id number] Unknown Unknown [id number] 2.16.8 [id number] Social History Date Type Detail Facility Tobacco smoking status No Smokin g Status Entered [facility] Sex Assigned At Female [facility] Start: 10-03-2021 Tobacco smoking stat NHIS Smoker (finding) [facility] Start: 1985 Sex Assigned At Female [facility] Tobacco smoking status No Smokin g Status Entered [facility] Start: 05-16-2023 Tobacco smoking status Ex-smoker (fi nding) [facility] [place] Tobacco smoking status Smokeless tobacco user within last 30 days [facility] [place] Functional Status Date Assessment Result Facility 05-16-2023 Functional Status N/A [facility] [place] Clinical Notes 06-08-2022 to 05-22-2023 Note Date [...] Tobacco Use:. Smoke (more content not included)... [facility] Comment on above: Result Comment: Elec [...] condition. Danis Garcia M.D. tristan Dictated: 12/30/2022 [id number] Transcribed: 12/30/2022 [facility] Comment on above: Result Comment: Elec tronically Signed By: Jose MATA, Danis Stratton\.br\Date and Time Signed: 12/31/22 10:06 EST 12-31-2022 Note The following Patien t Education Materials have been given to the patient: EducationMaterial [facility] 12-29-2022 Note HOSPITAL REGULATIONS : All Positive [...] repeat section. Danis Garcia M.D. Dictated: 12/27/2022 [id number] Transcribed: 12/28/2022 [facility] Comment on above: Result Comment: Elec tronically Signed By: Jose MATA, Danis Stratton\.br\Date and Time Signed: 12/29/22 07:09 EST 11-24-2022 Evaluation + Plan note Diagnostic Tests PendingPath. Review 11/24/22 [facility] 11-02-2022 Evaluation + Plan note Diagnostic Tests PendingRPR with Conf Rfx 11/02/22 [facility] 06-08-2022 Evaluation + Plan note Diagnostic Tests PendingRPR with Conf Rfx 06/08/22HIV Screen 4th Generation wRfx 06/08/22Rubella Antibody IgG 06/08/22Urine Culture 06/08/22Hepatitis B Surface Antigen 06/08/22HCV Antibody RFX to Quant PCR 06/08/22 [facility] 06-08-2022 Evaluation + Plan note Diagnostic Tests PendingUrine Culture 06/08/22PAP [id number] IG Apt HPV,rfx 16/18,45 06/08/22 [facility] Evaluation + Plan note No data available for this section [facility] Evaluation note No assessment inform ation available [facility] Work Phone: Hospital Discharge instructions No data available for this section [facility] Progress note No data available for this section [facility] Summary Purpose Family History No Family History [...] section and content) DATE CREATED AUTHOR 05/11/2018 [facility] DATE CREATED AUTHOR AUTHOR'S ORGANIZ ATION 08/10/2018 [facility] DATE CREATED AUTHOR AUTHOR'S ORGANIZ ATION 11/11/2022 [facility] DATE CREATED AUTHOR AUTHOR'S ORGANIZ ATION 04/05/2023 [facility] DATE CREATED AUTHOR AUTHOR'S ORGANIZ ATION 07/28/2023 [facility] Care Teams (unrecognized sec tion and content) Personnel Name: Zachary Boyd MD Address: Address: [address] [place], [place] [address] Team Status: Inactive Member Role Status [...] BE BASED ON THE PRIMARY CLINICAL RECORDS. [email or web address] provides no warranty or guarantee of the accuracy or completeness of information in this document.
--- NOTE | 2023-12-27 18:21 | P.HP_ITS ---
H&P: HPI History of Present Illness Chief complaint: Abnormal Labs,Hypokalemia,Hyponatremia,Dehydration Narrative: Patient been seen in the office the previous day. Just felt weak. Had some nausea vomiting. Deferred on admission at that time set up for labs. Labs completed today showed a sodium of less than 125. Patient was directed to go to the emergency room. Unable to do a direct admission with electrolyte abnormalities that significant. In ER was given fluid boluses and antiemetics and she overall does feel somewhat improved. Patient needs to maintain observation status overnight for continued hydration Patient with a history of hepatitis C-liver enzymes are actually pretty good for her, will continue to monitor liver tests Review of Systems ROS Status of ROS 10 or more systems reviewed and unremark able except as noted in history and below [facility] Medical History (Updated 12/27/23 @ 17:17 by Kaylyn Villela) Hepatitis C ?B19.20 - Unspecified viral hepatitis C without hepatic coma (ICD-10) Family History (Updated 12/27/23 @ 17:18 by Kaylyn Villela) Father Family history of myocardial infarction Family history of hypertension Grandfather Family history of diabetes mellitus Mother Family history of hypertension Social History (Updated 12/27/23 @ 17:21 by Kaylyn Villela) Within the past year, how often did you have a drink containing alcohol: monthly or less Within the past year, how often did you have six or more drinks on one occasion: never Smoking status: Light tobacco smoker Non-prescribed substance use: denies use Non-prescribed substance use details: clean 4 years Previous occupational history: unemployed Highest level of school completed/degree received: high school graduate Are you now , , , , never or living with a partner: never Little interest or pleasure in doing things: not at all Feeling down, depressed, or hopeless: not at all Feel stressed/tense/nervous/anxious/difficulty sleeping: only a little Do you think of yourself as: straight/heterosexual Meds Home Medications and Allergies Home Medications Medication Instructions Recorded Confirmed Type pantoprazole 40 mg tablet,delayed 40 mg PO DAILY #7 tabs 12/05/23 12/27/23 Rx release (Protonix) hyoscyamine sulfate 0.125 mg 0.125 mg sublingual Q6H PRN pain 12/27/23 12/27/23 History sublingual tablet promethazine 25 mg tablet 25 mg PO Q6H PRN nausea and 12/27/23 12/27/23 History vomiting Allergies Allergy/AdvReac Type Severity Reaction Status Date / Time No Known Drug Allergies Allergy Verified 12/05/23 18:30 Exam Constitutional Vital Signs, click to edit/add: Last Vital Signs Temp 97.6 F 12/27/23 17:25 Pulse 84 12/27/23 17:25 Resp 20 12/27/23 17:25 BP 119/84 12/27/23 17:25 Pulse Ox 97 12/27/23 17:25 O2 Del Method Room Air 12/27/23 17:25 Documenting provider has reviewed patient's vital signs: yes Common normals: no apparent distress Chest Common normals: inspection of chest normal Respiratory Common normals: normal respiratory effort Cardio Common normals: no JVD and regular rate GI Common normals: Normal to inspection, nondistended, normoactive bowel sounds present and soft to palpation; tender (Mild diffuse tenderness) Results Labs Labs: Short CBC 12/27/23 Range/Units 15:54 WBC 9.6 (4.0-11.0) 10^3/uL Hgb 13.1 (12.0-16.0) g/dL Hct 39.8 (36.0-48.0) % Plt Count 444 (150-450) 10^3/uL BMP 12/27/23 15:54 Sodium 125 L Potassium 2.2 L* Chloride 85 L Carbon Dioxide 29.0 BUN 30.0 H Creatinine 1.34 H Glucose 117 H Calcium 9.5 Liver Function 12/27/23 Range/Units 15:54 Total Bilirubin 0.7 (0.2-1.0) mg/dL AST 63 H (15-37) U/L ALT 16 (14-59) U/L Alkaline Phosphatase 123 H (46-116) U/L Albumin 3.9 (3.4-5.0) g/dL Assessment and Plan Assessment and Plan (1) Acute hyponatremia: (2) Hypokalemia: (3) Acute dehydration: (4) Gastroenteritis: (5) Abdominal pain: Plan Sinus tachycardia, acute kidney injury with a previous creatinine of about 0.6 is her baseline. IV fluids overnight. No 3% at this point as I think it is just more dehydration. She does not have any altered mental status either. Hypokalemia-supplement Acute UTI-start IV antibiotics Elevated liver function test likely related to her history of hepatitis C. Overall better than previous. Maintain patient observation status, likely discharge in [facility]
[2023-12-27] MEDS: 0.9 % SODIUM CHLORIDE 1,000 ML 1000 ML IV (18:44)
[2023-12-27] MEDS: POTASSIUM CHLORIDE 10 MEQ ER TABLET 20 MEQ PO ×2 (18:44→22:22)
[2023-12-27] MEDS: PANTOPRAZOLE SODIUM 40 MG VIAL IV (20:30)
[2023-12-27] MEDS: HYOSCYAMINE SULFATE 0.125 MG TAB.SUBL SL (20:30)
[2023-12-27] MEDS: CEFTRIAXONE 1,000 MG in 0.9 % SODIUM CHLORIDE 50 ML 100 MG IV (20:50)
[2023-12-27] MEDS: CIPROFLOXACIN IN 5 % DEXTROSE 400 MG/200 ML PIGGYBACK 200 MG IV (21:52)
[2023-12-28] MEDS: 0.9 % SODIUM CHLORIDE 1,000 ML 125 ML IV ×2 (01:31→08:51)
[2023-12-28] MEDS: ACETAMINOPHEN 500 MG TABLET 1000 MG PO ×2 (01:36→08:51)
[2023-12-28] MEDS: HYOSCYAMINE SULFATE 0.125 MG TAB.SUBL SL ×2 (01:37→08:51)
[2023-12-28] MEDS: POTASSIUM CHLORIDE 10 MEQ ER TABLET 20 MEQ PO (05:13)
[2023-12-28 05:27] VITALS: BP 84/51; PULSE 73; RESP 18; TEMP 36.4; O2SAT 99
[2023-12-28 05:56] VITALS: BP 100/58
[2023-12-28 06:56] LABS: Basophils Percent Auto 0.4 % (0.2-2.0); Eosinophils Percent Auto 0.6 % (0.9-7.0); Hematocrit 31.2 % (36.0-48.0); Hemoglobin 10.1 g/dL (12.0-16.0); Immature Granulocytes Abs Auto 0.02 10^3/uL (0.00-0.03); Immature Granulocytes Pct Auto 0.4 % (0.0-0.5); Lymphocytes Percent Auto 42.2 % (20.5-60.0); Mean Corpuscular HGB Conc 32.4 g/dL (29.9-35.2); Mean Corpuscular Hemoglobin 27.3 pg (26.7-34.0); Mean Corpuscular Volume 84.3 fL (81.0-99.0); Mean Platelet Volume 9.1 fL (9.5-13.5); Monocytes Absolute Auto 0.4 10^3/uL (0.3-0.8); Monocytes Percent Auto 8.9 % (1.7-12.0); Neutrophils Absolute Auto 2.3 10^3/uL (1.4-6.5); Neutrophils Percent Auto 47.5 % (43.0-75.0); Platelet Count 229 10^3/uL (150-450); Red Cell Distribution Width 20.7 % (11.0-15.0); White Blood Count 4.7 10^3/uL (4.0-11.0)
[2023-12-28 07:05] LABS: Ammonia 54 umol/L (11-32)
[2023-12-28 07:09] LABS: Alanine Aminotransferase 12 U/L (14-59); Albumin Globulin Ratio 0.6; Albumin Level 2.4 g/dL (3.4-5.0); Alkaline Phosphatase 76 U/L (46-116); Anion Gap 8.8; Aspartate Amino Transferase 40 U/L (15-37); BUN Creatinine Ratio 15.3; Bilirubin Total 0.2 mg/dL (0.2-1.0); Calcium 7.9 mg/dL (8.5-10.1); Carbon Dioxide 23.9 mmol/L (21.0-32.0); Chloride 106 mmol/L (98-107); Estimated GFR (African America >60 (>=60); Estimated GFR (Non-African Ame >60 (>=60); Globulin 4.1 g/dL; Glucose 90 mg/dL (74-106); Potassium 3.7 mmol/L (3.5-5.1); Sodium 135 mmol/L (136-145); Total Protein 6.5 g/dL (6.4-8.2)
[2023-12-28] MEDS: CIPROFLOXACIN IN 5 % DEXTROSE 400 MG/200 ML PIGGYBACK 200 MG IV (09:00)
--- NOTE | 2023-12-28 09:54 | CM.NOTE ---
Rounds made with Dr. Boyd. Plan for discharge after lunch if tolerates diet. Verbalizes understanding.
--- NOTE | 2023-12-28 09:58 | P.DS_ITS ---
DS: Providers Provider Date of admission: 12/27/23 17:03 Primary care physician: Rich Boyd MD DS: Diagnosis Discharge Diagnosis (1) Acute hyponatremia: (2) Hypokalemia: (3) Acute dehydration: (4) Gastroenteritis: (5) Abdominal pain: DS: Summary Hospital Course Hospital Course: Patient with recurrent nausea vomiting. Unable to maintain at home. Despite oral medications including Phenergan. Patient presented to the office. Laboratory results were obtained. She has significant hyponatremia and hypokalemia and acute kidney injury with elevated LFTs, patient does have a history of hepatitis C, patient was admitted for workup and treatment of same. She was hydrated overnight with saline. Multiple boluses. Patient tolerated well. Good urine output. Sodium is much improved today. She also found to have acute UTI this may be the source of her hyperemesis. Her nausea vomiting appears to be resolved this morning. She be treated for the UTI. She did have some mild hyperammonemia also this is likely related to her remote history of hepatitis C. In the dehydration. Patient will be discharged home in improving condition. Medications see list. Follow-up with me in the office within the next week. Time Spent with Patient Time attestation: Total time spent providing and/or coordinating discharge services: Exam Constitutional Vital Signs, click to edit/add: Last Vital Signs Temp 97.6 F 12/28/23 05:27 Pulse 73 12/28/23 05:27 Resp 18 12/28/23 05:27 BP 100/58 12/28/23 05:56 Pulse Ox 99 12/28/23 05:27 O2 Del Method Room Air 12/28/23 05:27 Documenting provider has reviewed patient's vital signs: yes Common normals: no apparent distress Chest Common normals: inspection of chest normal Respiratory Common normals: normal respiratory effort Cardio Common normals: no JVD and regular rate GI Common normals: Normal to inspection, nondistended, normoactive bowel sounds present and soft to palpation; tender (Mild diffuse tenderness) DS: Data Data Completed and Pending Labs on day of discharge: Labs from last 24 hours 12/28/23 12/27/23 06:45 15:54 WBC 4.7 9.6 RBC 3.70 L 4.88 Hgb 10.1 L 13.1 Hct 31.2 L 39.8 MCV 84.3 81.6 MCH 27.3 26.8 MCHC 32.4 32.9 RDW 20.7 H 20.4 H Plt Count 229 444 MPV 9.1 L 9.3 L Neut % (Auto) 47.5 73.1 Lymph % (Auto) 42.2 19.9 L [place] % (Auto) 8.9 6.3 Eos % (Auto) 0.6 L 0.1 L Baso % (Auto) 0.4 0.3 Neut # (Auto) 2.3 7.0 H Lymph # (Auto) 2.0 1.9 [place] # (Auto) 0.4 0.6 Eos # (Auto) 0.0 0.0 Baso # (Auto) 0.0 0.0 Abs Immat Gran (auto) 0.02 0.03 Imm/Tot Granulo (auto) 0.4 0.3 Sodium 135 L 125 L Potassium 3.7 2.2 L* Chloride 106 85 L Carbon Dioxide 23.9 29.0 Anion Gap 8.8 13.2 BUN 13.0 30.0 H Creatinine 0.85 1.34 H Est GFR ( Amer) >60 54 L Est GFR (Non-Af Amer) >60 45 L BUN/Creatinine Ratio 15.3 22.4 Glucose 90 117 H Calcium 7.9 L 9.5 Magnesium 2.0 Total Bilirubin 0.2 0.7 AST 40 H 63 H ALT 12 L 16 Alkaline Phosphatase 76 123 H Ammonia 54 H* Total Protein 6.5 10.3 H Albumin 2.4 L 3.9 Globulin 4.1 6.4 Albumin/Globulin Ratio 0.6 0.6 Discharge Plan Discharge Disposition: Home, Self-Care Condition: Good Discharge Medications: New cefdinir 300 mg capsule 600 mg PO DAILY Qty: 20 0RF Continued pantoprazole [Protonix] 40 mg tablet,delayed release (DR/EC) 40 mg PO DAILY Qty: 7 0RF hyoscyamine sulfate 0.125 mg tablet, sublingual 0.125 mg sublingual Q6H PRN (Reason: pain) promethazine 25 mg tablet 25 mg PO Q6H PRN (Reason: nausea and vomiting) Activity: increase activity as tolerated Patient Instructions: Cefdinir (By mouth), Hyponatremia (DC), Hypokalemia (DC) Forms: Portal Instructions Follow Up Appointments: Mon. @ 9:15am with Dr. Boyd [phone] Discharge Date/Time: 12/28/23 13:17
[2023-12-28 11:42] VITALS: O2SAT 94
--- NOTE | 2024-01-01 15:38 | CM.DCFOLLOWU ---
Person spoke with: patient How are you feeling? well How is your pain? no pain or nausea Did you understand your discharge instructions? yes Do you have any questions about your discharge instructions? no Were you given any prescriptions at discharge? yes Were you able to get your prescriptions filled? yes Do you understand how to take your medications as ordered? yes Do you have any questions about your follow up appointment and do you plan to keep your follow up appointment? no questions, follow up 01/05/24 Is there anything else that you would like to discuss? NO Questions/Comments/Concerns/Other: N/A
== END 2023-12-28 13:17 | disposition home or self-care (01) ==
LOC: ER 16:37 → MS 12-28 09:56
PROVIDERS: Physician Assistant; Admitting Provider Family Medicine; Emergency Provider Emergency Medicine; PCP Family Medicine; Visit Provider Family Medicine
DX: E86.0 Dehydration (principal); E87.6 Hypokalemia; E87.1 Hypo-osmolality and hyponatremia; K52.9 Noninfective gastroenteritis and colitis, unspecified; N17.9 Acute kidney failure, unspecified; R00.0 Tachycardia, unspecified; N39.0 Urinary tract infection, site not specified; R79.89 Other specified abnormal findings of blood chemistry; R10.9 Unspecified abdominal pain; F11.10 Opioid abuse, uncomplicated; D64.9 Anemia, unspecified; E55.9 Vitamin D deficiency, unspecified; F17.210 Nicotine dependence, cigarettes, uncomplicated; Z86.19 Personal history of other infectious and parasitic diseases; Z79.899 Other long term (current) drug therapy; B96.20 Unspecified Escherichia coli [E. coli] as the cause of diseases classified elsewhere
CPT/HCPCS: 36415; 80053; 81001; 82140; 82150; 82306; 83540; 83690; 83735; 84436; 84443; 84481; 85025; 87086; 87150; 87186; 93005; 94761; 96361; 96365; 96366; 96367; 96375; 99285; G0378; J0696; J0744

== ENCOUNTER 2024-01-24 16:52 | Outpatient (OUT) | payer OTHER, SELFPAY ==
--- NOTE | 2024-01-24 16:55 | US_ITS ---
[place] [address] Patient Name: BETSY FERRERA MRN: [id number] date: 1985 Sex: F Assigned Patient Location: [place] Current Patient Location: Accession/Order Number: [id number] Exam Date: 01/24/2024 17:20 Report Date: 01/25/2024 04:56 At the request of: ZACHARY OLSON Procedure: US venous doppler LE BI EXAM: US venous doppler LE BI HISTORY: edema R60.9 COMPARISON: None. TECHNIQUE: Grayscale, color and Doppler FINDINGS: Region: Bilateral legs Thrombus: None Flow: Normal Augmentation: Normal Compressibility: Normal Other: Mild to moderate bilateral lower extremity subcutaneous edema US/US venous doppler LE BI IMPRESSION: No deep or superficial vein thrombus identified in the legs Electronically authenticated by: KEN GAMBINO Date: 01/25/2024 04:56
== END 2024-01-24 16:53 | disposition home or self-care (01) ==
LOC: US 16:52
PROVIDERS: PCP Family Medicine; Visit Provider Family Medicine
DX: R60.9 Edema, unspecified (principal)
CPT/HCPCS: 93970

== ENCOUNTER 2024-06-05 09:54 | Outpatient (OUT) | payer OTHER, SELFPAY ==
--- NOTE | 2024-06-05 09:57 | MM_ITS ---
Patient Name: BETSY FERRERA MR#: [id number] : 1985 Exam Date: 06/05/2024 Ordering Doctor: Non-Staff Physician RADIOLOGY REPORT PROCEDURE: MM TOMOSYNTHESIS DIAGNOSTIC BI, 06/05/2024, 09:59 US BREAST RT LIMITED, 06/05/2024, 10:25 COMPARISON: None. INDICATIONS: Unspecified Right Breast Lump N63.0 Calculator Name NCI Breast Cancer Risk Assessment Tool 5 Year Breast Cancer Risk 0.10% Lifetime Breast Cancer Risk 4.80% Personal Breast Cancer No Personal Ovarian Cancer No Treatments None Family Cancers Grandmother-maternal with cervical cancer at age 60. LOCATION: [facility] BREAST COMPOSITION: The breasts are extremely dense, which lowers the sensitivity of mammography. FINDINGS: DIAGNOSTIC CATEGORY 2--BENIGN FINDING: RIGHT BREAST: Asymmetric opacity within upper-outer quadrant of right breast which corresponds to patient's palpable lump. Tomographic views suggest dense fibroglandular tissue. Ultrasound evaluation demonstrate what appears to be dense fibroglandular tissue within the upper-outer quadrant; no appreciable encapsulation to suggest hamartoma. No suspicious findings. LEFT BREAST: No significant suspicious finding. RECOMMENDATIONS: CLINICAL EVALUATION. PLEASE NOTE: A NORMAL MAMMOGRAM DOES NOT EXCLUDE THE POSSIBILITY OF BREAST CANCER. A CLINICALLY SUSPICIOUS PALPABLE LUMP SHOULD BE BIOPSIED. Dictated by: Nikhil Dooley M.D. on 06/06/2024 at 15:20 Approved by: Nikhil Dooley M.D. on 06/06/2024 at 15:25
--- OUTSIDE RECORDS SUMMARY | 2024-06-05 10:12 | XMS_ITS | CCD ---
Author Organization [facility] Care Team Providers Care Defective Cigarette Slitter Name Role Phone PHYSICIAN, DEFAULT Unavailable Unavailable PHYSICIAN, DEFAULT Unavailable Unavailable HAILEY [place] Unavailable Unavailable ZACHARY BOYD Unavailable Unavailable ZACHARY BOYD Unavailable Unavailable YUKO DENTON Unavailable Unavailable NONE, XXXX Primary Care Physician Unavailab MD Zachary Barth Primary Care Provider MD Danis Garcia Attending Provider Zachary Boyd [...] Unavailable DR ZACHARY GARAY Primary Care Unavailable DR MADDIE TREJO Consulting Unavailable VENITA TREVIÑO Admitting Unavailable VENITA TREVIÑO Attending Unavailable DR ZACHARY GARAY Primary Care Unavailable VENITA TREVIÑO Consulting Unavailable DR ZACHARY GARAY Primary Care Unavailable JENNIFER, DR MCKEON Admitting Unavailable MISEmre, DR MCKEON Consulting Unavailable MISC, DR MCKEON Attending Unavailable Kamala Crisostomo Attending Unavailable Kamala Crisostomo Admitting Unavailable Jose STACK Attending Unavailable Zachary Boyd Referring Unavailable Zachary Boyd Referring Unavailable Jose STACK Attending Unavailable Medications Current Medications Medication Drug Class(es) [...] 2022 12:00am ibuprofen 600 mg oral tablet (2 sources) Nonsteroidal Anti-inflammatory Drug Start: 12-30-2022 take 1 tablet by mouth every six hours ibuprofen 600 mg Tab 600 mg = 1 tab(s), Oral, q6hr, # 15 tab(s), Refills(s) 0, Pharmacy: [facility]/pharmacy #[id number], 152.4, cm, 12/27/22 16:20:00 EST, Height/Length Dosing, 65, kg, 12/27/22 16:20:00 EST, Weight Dosing Start Date: 12/30/22 Status: Ordered naltrexone 380 mg injection (3 sources) Opioid Antagonist Start: 04-19-2023 Vivitrol 380 mg intramuscular injection, extended release as directed, Refills(s) 0 Start Date: 04/19/23 Status: Ordered Start: 04-19-2023 Vivitrol 380 m g intramuscular injection, extended release as directed, Refills(s) 0 Start Date: 04/19/23 Status: Ordered Start: 11-27-2017 End: 09-18-2020 Naltrexone Microspheres (Jazzy itrol) 380 mg Suspension,Extended Rel Recon Discontinued 380 MG IM Q28D@0900 November 27, 2017 12:00am September 18, 2020 2:42pm pantoprazole 40 mg delayed release oral tablet (2 sources) Proton Pump Inhibitor Start: 04-19-2023 take 1 [...] Problem Date Documented Date Episodic/Chronic Abdominal pain (4 sources) Unspecified abdominal pain; Translations: [Epigastric pain] Onset: 04-01-2023 Episodic Alcohol-related disorders (1 source) Alcohol intoxication; Translations: [Alcohol use, unspecified with intoxication, unspecified] 10-03-2021 Episodic Biliary tract disease (1 source) Calculus of gallbladder without cholecystitis without obstruction; Translations: [CALCU GB W/O CHOLECYST W/O OBST] Onset: 04-04-2023 Episodic Deficiency and other anemia (2 sources) Anemia 12-28-2022 Episodic Disorders of teeth and jaw (1 source) Toothache; Translations: [Other specified disorders of teeth and supporting structures] 12-17-2020 Episodic Genitourinary symptoms and ill-defined conditions (1 source) Personal history of urinary (tract) infections; Translations: [PERS HX URINARY TRACT INFECTIONS] Onset: 04-04-2023 Episodic Hepatitis (3 sources) Viral hepatitis C 11-07-2022 Episodic Immunizations and screening for infectious disease (1 source) Nonspecific reaction to tuberculin skin test without active tuberculosis; Translations: [Nonspecific reaction to tuberculin skin test without active tuberculosis] Onset: 06-13-2018 Episodic Mood disorders (2 sources) Depressive disorder 04-19-2023 Chronic Nausea and vomiting (1 source) Nausea 05-22-2023 Episodic Nonmalignant breast conditions (2 sources) Fibrocystic disease of breast 04-19-2023 Chronic Open wounds of head; neck; and trunk (1 source) Laceration - injury; Translations: [Laceration] 10-03-2021 Episodic Other complications of (1 source) Other specified related conditions, unspecified trimester; Translations: [Other specified related conditions, unspecified trimester] Onset: 10-28-2022 Episodic Other complications of (3 sources) Multigravida of advanced maternal age 1211-07-2022 [...] 04-04-2023 Episodic Schizophrenia and other psychotic disorders (3 sources) Psychotic disorder; Translations: [Unspecified psychosis not due to a substance or known physiological condition] 11-23-2017 Chronic Spondylosis; intervertebral disc disorders; other back problems (1 source) Radiculopathy, cervical region; Translations: [Radiculopathy, cervical region] Onset: 07-30-2018 Episodic Substance-related disorders (4 sources) History of drug abuse; Translations: [Nicotine dependence, cigarettes, uncomplicated] Onset: 04-04-2023 11-07-2022 Chronic Unclassified (2 sources) Age mother conceived over 35 12-27-2022 Unclassified (2 sources) Body mass index 20-24 - normal 05-16-2023 Unclassified (2 sources) Patient encounter status 12-28-2022 Viral infection (4 sources) Viral disease; Translations: [Viral infection, unspecified] 10-11-2020 Episodic Past or Other Problems Problem Classification Problem Date Documented Da te Episodic/Chronic Other complications of (4 sources) Supervision of with history of infertility, unspecified trimester; Translations: [SUP PREG W/HX INFERTILITY UNS TRI] Onset: 05-06-2022 Episodic Unclassified (15 sources) Onset: 06-07-2007 Resolved: 12-27-2022 11-07-2022 Results Test Name Value Interpretation Reference Range Facility PAP [id number] 04-09-2024 Cytology report Cyto stain Doc (Cvx/Vag) Note Invalid Interpretation Code [facility] Comment on above: Result Comment: TEST S RESULT FLAG UNITS REF RANGE LAB Clinician Provided Cytology Information Source.............Endocervix LMP / Prev Treat...None Other..............Other No. of containers..01 ThinPrep Vial DIAGNOSIS: 01 NEGATIVE FOR INTRAEPITHELIAL LESION OR MALIGNANCY. Specimen adequacy: 01 Satisfactory for evaluation. No endocervical component is identified. Performed by: Danielle Segura, Brand Sales Consultant ([facility]) . 01 Note: Note 01 The Pap smear is a screening test designed to aid in the detection of premalignant and malignant conditions of the uterine cervix. It is not a diagnostic procedure and should not be used as the sole means of detecting cervical cancer. Both false-positive and false-negative reports do occur. Test Methodology: Note 01 This liquid based ThinPrep(R) pap test was screened with the use of an image guided system. FLAG LEGEND: L-Low Normal,H-High Normal,LL-Alert Low,HH-Alert High <-Panic Low,>-Panic High,A-Abnormal,AA-Critical Abnormal Performed at: [address] [facility] [id number] Latasha Baker MD, Performed By: #### 3 [id number] #### [facility] [address] [id number] HPV 16+18+31+33+35+39+45+ 51+52+56+58+59+66+68 DNA Probe+sig amp Ql (Cvx) Negative Invalid Interpretation Code Negative [facility] Comment on above: Result Comment: This nucleic acid amplification test detects fourteen high-risk HPV types (16,18,31,33,35,39,45,51,52,56,58,59,66,68) without differentiation. Performed at: [facility] [address] [place], [place] [id number] MD Olivia Pagan Performed at: =[facility] [address] [place], [place] [id number] MD Olivia Pagan Performed By: #### 3 [id number] #### [facility] [address] [place] [address] PAP [id number] 04-03-2024 Collection Technique BRUSH-SPATULA Normal F [facility] Comment on above: Performed By: #### 3 [id number] #### [facility] [address] [place] [address] Gynecological Body Site ENDOCERVIX Normal [facility] Comment on above: Performed By: #### 3 [id number] #### [facility] [address] [place] [address] Other Patient Information [id number] Normal [facility] Comment on above: Performed By: #### 3 [id number] #### [facility] [address] [id number] Previous Cytology Negative Normal [facility] Comment on above: Performed By: #### 3 [id number] #### [facility] [address] [place] [address] Previous Treatment NONE Normal [facility] Comment on above: Performed By: #### 3 [id number] #### [facility] [address] [place] [address] Physician Orderon 04-03-2024 Physician Order [id number] 4#1.00TIFF [facility] Insurance Correspondence Off iceon 07-27-2023 Insurance Correspondence Office [id number] #1.00CD:127 [facility] Facesheeton 05-17-2023 Facesheet [id number] #1.00CD:127 [facility] Ambulatory Visit Summaryon 0 05-16-2023 Ambulatory Visit Summary FERRERABETSY [place] :1985 Visit Date:05/16/2023 Ambulatory Visit Instructions Your Care Team Attending Physician - BETTYE MATA, Jose Fregoso Primary Care Physician - Deb MATA, Zachary Referring Physician - Zachary Boyd [...] you are no longer receiving treatment for. [facility] Provider Letteron 05-16-2023 Provider Letter May 16, 2023 BETSY FERRERA [address] [place] [address] [place] [address] : 1985 To Whom It May Concern, Please excuse above patient from work 05/15/23 and 05/16/23. Sincerely, Dr. Jose Stack MD General Surgery [facility] Provider Letter May 16, 2023 [place] [address] : 1985 To Whom It May Concern, Please excuse above patient from work 05/15/23 and 05/16/23. Sincerely, Dr. Jose Stack MD General Surgery [facility] Consultation Noteon 04-19-20 23 Consultation Note [id number] #1.00CD:127 Normal [facility] Physician Referralon 023 Physician Referral [id number] #1.00CD:127 Normal [facility] US SINGLE QUAD RT UPPERon US SINGLE [...] by: MADDIE TREJO Date: 2023-04-04 10:15 Normal [facility] AMYLASEon 04-02-2023 Amylase [Catalytic activity/Vol] 22 U/L Critically low 25-115 [facility] Comment on above: Performed By: #### L IPA, CMP, SALUD #### [facility] [address] [place] [address] Dr. Richy Blankenship CBC AUTO DIFFon 04-02-2023 BASO # 0.0 103/ul Normal 0.0-0.1 [facility] Comment on above: Performed By: #### C BC #### [facility] [address] [place] [address] Dr. Richy Blankenship Basophils/100 WBC (Bld) 0.5 % Normal 0.2-2.0 [facility] Comment on above: Performed By: #### C BC #### [facility] [address] [place] [address] Dr. Richy Blankenship EO # 0.1 103/ul Normal 0.0-0.7 [facility] Comment on above: Performed By: #### C BC #### [facility] [address] [place] [address] Dr. Richy Blankenship Eosinophils/100 WBC (Bld) 1.2 % Normal 0.9-7.0 [facility] Comment on above: Performed By: #### C BC #### [facility] [address] [place] [address] Dr. Richy Blankenship Erythrocyte distribution width (RBC) [Ratio] 17.4 % Critically high 11.0-15.0 [facility] Comment on above: Performed By: #### C BC #### [facility] [address] [place] [address] Dr. Richy Blankenship Hematocrit (Bld) [Volume fraction] 37.9 % Normal 36.0-48.0 [facility] Comment on above: Performed By: #### C BC #### [facility] [address] [place] [address] Dr. Richy Blankenship Hemoglobin (Bld) [Mass/Vol] 12.1 g/dL Normal 12.0-16.0 [facility] Comment on above: Performed By: #### C BC #### [facility] [address] [place] [address] Dr. Richy Blankenship IG # 0.01 10e3/ul Normal 0.00-0.03 [facility] Comment on above: Performed By: #### C BC #### [facility] [address] [place] [address] Dr. Richy Blankenship IG % 0.2 % Normal 0.0-0.5 [facility] Comment on above: Performed By: #### C BC #### [facility] [address] [place] [address] Dr. Richy Blankenship LYMPH # 1.8 103/ul Normal 1.2-3.8 [facility] Comment on above: Performed By: #### C BC #### [facility] [address] [place] [address] Dr. Richy Blankenship Lymphocytes/100 WBC (Bld) 31.0 % Normal 20.5-60.0 [facility] Comment on above: Performed By: #### C BC #### [facility] [address] [place] [address] Dr. Richy Blankenship MANUAL DIFF REQ NO Normal [facility] Comment on above: Performed By: #### C BC #### [facility] [address] [place] [address] Dr. Richy Blankenship MCH (RBC) [Entitic mass] 25.5 pg Critically low 26.7-34.0 [facility] Comment on above: Performed By: #### C BC #### [facility] [address] [place] [address] Dr. Richy Blankenship MCHC (RBC) [Mass/Vol] 31.9 g/dL Normal 29.9-35.2 [facility] Comment on above: Performed By: #### C BC #### [facility] [address] [place] [address] Dr. Richy Blankenship MCV (RBC) [Entitic vol] 80.0 fL Critically low 81.0-99.0 [facility] Comment on above: Performed By: #### C BC #### [facility] [address] [place] [address] Dr. Richy Blankenship MONO # 0.6 103/ul Normal 0.3-0.8 [facility] Comment on above: Performed By: #### C BC #### [facility] [address] [place] [address] Dr. Richy Blankenship Monocytes/100 WBC (Bld) 10.2 % Normal 1.7-12.0 [facility] Comment on above: Performed By: #### C BC #### [facility] [address] [place] [address] Dr. Richy Blankenship NEUT # 3.3 103/ul Normal 1.4-6.5 [facility] Comment on above: Performed By: #### C BC #### [facility] [address] [place] [address] Dr. Richy Blankenship Neutrophils/100 WBC (Bld) 56.9 % Normal 43.0-75.0 [facility] Comment on above: Performed By: #### C BC #### [facility] [address] [place] [address] Dr. Richy Blankenship Platelet mean volume (Bld) [Entitic vol] 8.4 fL Critically low 9.5-13.5 [facility] Comment on above: Performed By: #### C BC #### [facility] [address] [place] [address] Dr. Richy Blankenship PLT 243 103/ul Normal 150-450 [facility] Comment on above: Performed By: #### C BC #### [facility] [address] [place] [address] Dr. Richy Blankenship RBC 4.74 106/ul Normal 4.20-5.40 [facility] Comment on above: Performed By: #### C BC #### [facility] [address] [place] [address] Dr. Richy Blankenship WBC 5.9 103/ul Normal 4.0-11.0 [facility] Comment on above: Performed By: #### C BC #### [facility] [address] [place] [address] ABD/PELVIS WO CONon [...] by: ROB LAKHANI Date: 2023-04-02 02:14 Normal [facility] LACTATE/LACTIC ACIDon 2022 Lactate [Moles/Vol] 0.9 mmol/L Normal 0.4-2.0 [facility] Comment on above: Performed By: #### L ACT #### [facility] [address] [place] [address] Dr. Richy Blankenship LIPASEon 04-02-2023 Lipase [Catalytic activity/Vol] 86.0 U/L Normal 73.0-393.0 [facility] Comment on above: Performed By: #### L IPA, CMP, SALUD #### [facility] [address] [address] [address] Richy Blankenship PROF 14(COMP METB)on 023 Albumin [Mass/Vol] 3.4 g/dL Normal 3.4-5.0 [facility] Comment on above: Performed By: #### L IPA, CMP, SALUD #### [facility] [address] [address] [address] Richy Blankenship Albumin/Globulin [Mass ratio] 0.6 {ratio} Normal [facility] Comment on above: Performed By: #### L IPA, CMP, SALUD #### [facility] [address] [address] [address] Richy Blankenship ALP [Catalytic activity/Vol] 151 U/L Critically high 46-116 [facility] Comment on above: Performed By: #### L IPA, CMP, SALUD #### [facility] [address] [address] [address] Richy Blankenship ALT [Catalytic activity/Vol] 49 U/L Normal 14-59 [facility] Comment on above: Performed By: #### L IPA, CMP, SALUD #### [facility] [address] [place] [address] Dr. Richy Blankenship Anion gap [Moles/Vol] 13.5 mmol/L Normal [facility] Comment on above: Performed By: #### L IPA, CMP, SALUD #### [facility] [address] [place] [address] Dr. Richy Blankenship AST [Catalytic activity/Vol] 107 U/L Critically high 15-37 [facility] Comment on above: Performed By: #### L IPA, CMP, SALUD #### [facility] [address] [place] [address] Dr. Richy Blankenship Bilirubin [Mass/Vol] 0.3 mg/dL Normal 0.2-1.0 [facility] Comment on above: Performed By: #### L IPA, CMP, SALUD #### [facility] [address] [place] [address] Dr. Richy Blankenship Calcium [Mass/Vol] 8.9 mg/dL Normal 8.5-10.1 [facility] Comment on above: Performed By: #### L IPA, CMP, SALUD #### [facility] [address] [place] [address] Dr. Richy Blankenship Chloride [Moles/Vol] 102 mmol/L Normal 98-107 [facility] Comment on above: Performed By: #### L IPA, CMP, SALUD #### [facility] [address] [place] [address] Dr. Richy Blankenship CO2 [Moles/Vol] 22.3 mmol/L Normal 21.0-32.0 [facility] Comment on above: Performed By: #### L IPA CMP, SALUD #### [facility] [address] [address] [address] Richy Blankenship Creatinine [Mass/Vol] 0.70 mg/dL Normal 0.55-1.02 [facility] Comment on above: Performed By: #### L IPA CMP, SALUD #### [facility] [address] [address] [address] Richy Blankenship EGFR-AF [facility] >60 Normal >=60 [facility] Comment on above: Performed By: #### L IPA CMP, SALUD #### [facility] [address] [address] [address] Richy Blankenship EGFR-NON AF [facility] >60 Normal >=60 [facility] Comment on above: Performed By: #### L IPA CMP, SALUD #### [facility] [address] [address] [address] Richy Blankenship Globulin (S) [Mass/Vol] 5.9 g/dL Normal [facility] Comment on above: Performed By: #### L IPA CMP, SALUD #### [facility] [address] [address] [address] Richy Blankenship Glucose [Mass/Vol] 95 mg/dL Normal 74-106 [facility] Comment on above: Performed By: #### L IPA CMP, SALUD #### [facility] [address] [address] [address] Richy Blankenship Potassium [Moles/Vol] 2.8 mmol/L Critically low 3.5-5.1 [facility] Comment on above: Result Comment: Re-r an and verified Performed By: #### L IPA CMP, SALUD #### [facility] [address] [address] [address] Richy Blankenship Protein [Mass/Vol] 9.3 g/dL Critically high 6.4-8.2 [facility] Comment on above: Performed By: #### L IPA CMP, SALUD #### [facility] [address] [place], [place] [address] Dr. Richy Blankenship Sodium [Moles/Vol] 133 mmol/L Critically low 136-145 [facility] Comment on above: Performed By: #### L IPA, CMP, SALUD #### [facility] [address] [place], [place] [address] Dr. Richy Blankenship Urea nitrogen [Mass/Vol] 8.0 mg/dL Normal 7.0-18.0 [facility] Comment on above: Performed By: #### L IPA, CMP, SALUD #### [facility] [address] [address] [address] Richy Blankenship Urea nitrogen/Creatinine [Mass ratio] 11.4 mg/mg Normal [facility] Comment on above: Performed By: #### L IPA, CMP, SALUD #### [facility] [address] [address] [address] Richy Blankenship HEMATOLOGYOrdered By: Eri Muñiz on 11-24-2022 Anisocytosis [...] [Interp] See Morphology (11/24/22 1:51 PM) Normal [facility] [place] [facility] HemeManSS Platelet mean volume (Bld) [Entitic vol] 6.0 fL Low 6.4 - 10.8 fL FT [facility]eAuto[facility] Platelets (Bld) [#/Vol] 484.0 E9/L Normal 150.0 - 500.0 E9/L FT [facility] Polychromasia LM Ql (Bld) Present (11/24/22 1:51 PM) Normal [facility] HemeManSS RBC (Bld) [#/Vol] 4.1 E12/L Low 4.3 - 5.9 E12/L FT [facility] WBC corrected for nucl RBC Auto (Bld) [#/Vol] 8.0 E9/L Normal 4.0 - 11.0 E9/L FT [facility] CHEMISTRYOrdered By: SYSTEM SYSTEM on 11-02-2022 Glucose 1 Hr post 50 g glucose PO [Mass/Vol] 71 mg/dL Normal 55 - 140 mg/dL [facility] [place] Remisol HEMATOLOGYOrdered By: Shay Sunshine on 11-02-2022 Hematocrit (Bld) [Volume fraction] 23.1 % Low 34.0 - 46.0 % FT [facility] Hemoglobin (Bld) [Mass/Vol] 7.0 g/dL Low 12.0 - 16.0 gm/dL [facility] [facility] HemeAutoSS Dipstick and Microscopicon 1 12-29-2021 Appearance (U) Cloudy Critically abnormal Clear [facility] Comment on above: Order Comment: Name Collection Type:: Clean-Voided Midstream Performed By: #### O BUDS, ADDONUAPLUS #### [facility] [address] [place] [address] [place] Bacteria,Urine None Seen Normal None Seen [facility] Comment on above: Order Comment: Name Collection Type:: Clean-Voided Midstream Performed By: #### O BUDS, ADDONUAPLUS #### [facility] [address] [place] [address] [place] Bilirubin,Urine Negative Normal Negative [facility] Comment on above: Order Comment: Name Collection Type:: Clean-Voided Midstream Performed By: #### O BUDS, ADDONUAPLUS #### [facility] [address] [id number] [place] Color (U) Yellow Normal Yellow [facility] Comment on above: Order Comment: Name Collection Type:: Clean-Voided Midstream Performed By: #### O BUDS, ADDONUAPLUS #### [facility] [address] [id number] [place] Glucose Ql (U) Normal Normal Normal [facility] Comment on above: Order Comment: Name Collection Type:: Clean-Voided Midstream Performed By: #### O BUDS, ADDONUAPLUS #### [facility] [address] [place] [address] [place] Hyaline Casts,Urine 0-8 Normal 0-8 [facility] Comment on above: Order Comment: Name Collection Type:: Clean-Voided Midstream Result Comment: PERF ORMED BY: [place] [address] PATHOLOGIST LINEN SUPERVISOR KARLI PLAZA M.D. Performed By: #### O BUDS, ADDONUAPLUS #### [facility] [address] [place] [address] [place] Ketones Ql (U) Negative Normal Negative [facility] Comment on above: Order Comment: Name Collection Type:: Clean-Voided Midstream Performed By: #### O BUDS, ADDONUAPLUS #### [place] [address] [place] Leukocyte esterase Test strip Ql (U) 3+ High Negative [facility] Comment on above: Order Comment: Name Collection Type:: Clean-Voided Midstream Performed By: #### O BUDS, ADDONUAPLUS #### [facility] [address] [place] [address] [place] Nitrite,Urine Negative Normal Negative [facility] Comment on above: Order Comment: Name Collection Type:: Clean-Voided Midstream Performed By: #### O BUDS, ADDONUAPLUS #### [facility] [address] [place] [address] [place] Occult Blood,Urine Negative Normal Negative [facility] Comment on above: Order Comment: Name Collection Type:: Clean-Voided Midstream Result Comment: PERF ORMED BY: [place] [address] PATHOLOGIST LINEN SUPERVISOR KARLI PLAZA M.D. Performed By: #### O BUDS, ADDONUAPLUS #### [address] pH (U) 6.5 [pH] Normal 5.0-9.0 [facility] Comment on above: Order Comment: Name Collection Type:: Clean-Voided Midstream Performed By: #### O BUDS, ADDONUAPLUS #### [address] Protein,Urine Negative Normal Negative [facility] Comment on above: Order Comment: Name Collection Type:: Clean-Voided Midstream Performed By: #### O BUDS, ADDONUAPLUS #### [address] RBC,Urine None Seen Normal 0-4 [facility] Comment on above: Order Comment: Name Collection Type:: Clean-Voided Midstream Performed By: #### O BUDS, ADDONUAPLUS #### [address] Specificy [employer],Urine 1.005 Normal 1.001-1.030 [facility] Comment on above: Order Comment: Name Collection Type:: Clean-Voided Midstream Performed By: #### O BUDS, ADDONUAPLUS #### [address] Squamous Epithelial Cell,Urine 1-2 Normal 0-2 [facility] Comment on above: Order Comment: Name Collection Type:: Clean-Voided Midstream Performed By: #### O BUDS, ADDONUAPLUS #### [address] Urobilinogen,Urine Normal Normal Normal [facility] Comment on above: Order Comment: Name Collection Type:: Clean-Voided Midstream Performed By: #### O BUDS, ADDONUAPLUS #### [place] [address] [place] WBC,Urine 3-4 Normal 0-4 [facility] Comment on above: Order Comment: Name Collection Type:: Clean-Voided Midstream Performed By: #### O BUDS, ADDONUAPLUS #### [address] OB Urine Drug Screen (NO THC )on 10-28-2022 Amphetamine Screen,Urine Negative Normal Negative [facility] Comment on above: Performed By: #### O BUDS, ADDONUAPLUS #### [address] Barbiturate Screen,Urine Negative Normal Negative [facility] Comment on above: Performed By: #### O BUDS, ADDONUAPLUS #### [address] Benzodiazepines Screen,Urine Negative Normal Negative [facility] Comment on above: Performed By: #### O BUDS, ADDONUAPLUS #### [place] [address] [place] Cocaine Screen,Urine Negative Normal Negative [facility] Comment on above: Performed By: #### O BUDS, ADDONUAPLUS #### [place] [address] [place] Opiate Screen,Urine Negative Normal Negative [facility] Comment on above: Performed By: #### O BUDS, ADDONUAPLUS #### [address] Phencyclidine Screen, Urine Negative Normal Negative [facility] Comment on above: Result Comment: Thes e are unconfirmed results and should not be used for legal purposes. Drug Cut-Off Concentration: AMPH 1000 ng/mL MANUEL 200 ng/mL ANA LUISA 200 ng/mL COCM 300 ng/mL OP 300 ng/mL PCP 25 ng/mL PERFORMED BY: [place] [address] PATHOLOGIST [employer]EN SUPERVIS[employer] KARLI PLAZA M.D. Performed By: #### O BUDS, ADDONUAPLUS #### [address] Amphetamine Screen Ql (U)Ord ered By: SHANIQUE Wetzel on 10-27-2022 Amphetamines Ql (U) Negative Negative [facility] Automated erythrocytes count in urine sediment (number/area)Ordered By: SHANIQUE Wetzel on 10-27-2022 RBC Auto (Urine sed) [#/Area] None seen [HPF] 0-4 [facility] Automated leukocytes count i n urine sediment (number/area)Ordered By: SHANIQUE Wetzel on 10-27-2022 WBC Auto (Urine sed) [#/Area] 3-4 [HPF] 0-4 [facility] Barbiturates [Presence] in U rineOrdered By: SHANIQUE Wetzel on 10-27-2022 Barbiturates Ql (U) Negative Negative [facility] Benzodiazepines [Presence] i n UrineOrdered By: SHANIQUE Wetzel on 10-27-2022 Benzodiazepines Ql (U) Negative Negative [facility] Bilirubin Test strip Ql (U)O rdered By: SHANIQUE Wetzel on 10-27-2022 Bilirubin Ql (U) Negative Negative [facility] Color Auto (U)Ordered By: MD FRANCES Wetzel on 10-27-2022 Color (U) Yellow Yellow [facility] Ketones Auto test strip (U) [Mass/Vol]Ordered By: SHANIQUE Wetzel on 10-27-2022 Ketones (U) [Mass/Vol] Negative Negative [facility] - Drug toxicology Ordered By: SHANIQUE Wetzel on 10-27-2022 Opiates Ql (U) Negative Negative [facility] - UrinalysisOrder ed By: SHANIQUE Wetzel on 10-27-2022 Hyaline casts LM Ql (Urine sed) 0-8 [LPF] 0-8 [facility] Nitrite Test strip Ql (U)Ord ered By: SHANIQUE Wetzel on 10-27-2022 Nitrite Ql (U) Negative Negative [facility] Phencyclidine Screen Ql (U)O rdered By: SHANIQUE Wetzel on 10-27-2022 Phencyclidine Ql (U) Negative Negative [facility] Comment on above: These are unconfirme d results and should not be used for legal purposes. Drug Cut-Off Concentration: AMPH 1000 ng/mL MANUEL 200 ng/mL ANA LUISA 200 ng/mL COCM 300 ng/mL OP 300 ng/mL PCP 25 ng/mL Protein Auto test strip (U) [Mass/Vol]Ordered By: SHANIQUE Wetzel on 10-27-2022 Protein (U) [Mass/Vol] Negative Negative [facility] Specific gravity Auto test s trip (U) [Rel density]Ordered By: SHANIQUE Wetzel on 10-27-2022 Specific gravity (U) [Rel density] 1.005 1.001-1.030 [facility] Squamous epithelial cells de tection in urine sediment by light microscopyOrdered By: SHANIQUE Wetzel on 10-27-2022 Epithelial cells.squamous LM Ql (Urine sed) 1-2 [HPF] 0-2 [facility] Urine bacteria detection by automated methodOrdered By: SHANIQUE Wetzel on 10-27-2022 Bacteria Auto Ql (U) None seen None Seen [facility] Urine clarity by refractomet ry automatedOrdered By: SHANIQUE Wetzel on 10-27-2022 Clarity Refractometry automated (U) Cloudy Clear [facility] Urine cocaine detectionOrder ed By: SHANIQUE Wetzel on 10-27-2022 Cocaine Ql (U) Negative Negative [facility] Urine glucose measurement by automated test strip (mass/volume)Ordered By: COOKIE Wetzel on 10-27-2022 Glucose Auto test strip (U) [Mass/Vol] Normal mg/dL Normal [facility] Urine hemoglobin detection b y automated test stripOrdered By: SHANIQUE Wetzel on 10-27-2022 Hemoglobin Auto test strip Ql (U) Negative Negative [facility] Urine leukocyte esterase det ection by automated test stripOrdered By: SHANIQUE Wetzel on 10-27-2022 Leukocyte esterase Auto test strip Ql (U) 3+ Negative [facility] Urobilinogen Auto test strip (U) [Mass/Vol]Ordered By: SHANIQUE Wetzel on 10-27-2022 Urobilinogen (U) [Mass/Vol] Normal mg/dL Normal [facility] pH Auto test strip (U)Ordere d By: SHANIQUE Wetzel on 10-27-2022 pH (U) 6.5 [pH] 5.0-9.0 [facility] BLOOD BANKOrdered By: Tabby Milan on 06-08-2022 ABO/Rh Interp Positive Invalid Interpretation Code [facility] BB Subsection ABSC Gel Interp Negative (06/08/22 2:26 PM) Normal [facility] BB Subsection HEMATOLOGYOrdered By: Tabby Milan on 06-08-2022 Anisocytosis Ql (Bld) Present (06/08/22 2:26 PM) Normal [facility] HemeManSS Erythrocyte distribution width (RBC) [Ratio] 18.9 % High 10.9 - 14.2 % [facility] HemeAutoSS Hematocrit (Bld) [Volume fraction] 26.6 % Low 34.0 - 46.0 % [facility] HemeAutoSS Hemoglobin (Bld) [Mass/Vol] 8.4 g/dL Low 12.0 - 16.0 gm/dL [facility] HemeAutoSS Hypochromia Auto Ql (Bld) Present (06/08/22 2:26 PM) Normal [facility] HemeManSS MCH (RBC) [Entitic mass] 19.9 pg Low 27.0 - 34.0 pg [facility] HemeAutoSS MCHC (RBC) [Mass/Vol] 31.4 g/dL Normal 31.4 - 36.0 gm/dL [facility] HemeAutoSS MCV (RBC) [Entitic vol] 63.2 fL Low 80.0 - 100.0 fL [facility] HemeAutoSS Microcytes Ql (Bld) Present (06/08/22 2:26 PM) Normal [facility] HemeManSS Morphology Beltran (Bld) [Interp] See Morphology (06/08/22 2:26 PM) Normal [facility] HemeManSS Platelet mean volume (Bld) [Entitic vol] 6.6 fL Normal 6.4 - 10.8 fL [facility] HemeAutoSS Platelets (Bld) [#/Vol] 444.0 E9/L Normal 150.0 - 500.0 E9/L [facility] HemeAutoSS RBC (Bld) [#/Vol] 4.2 E12/L Low 4.3 - 5.9 E12/L [facility] HemeAutoSS WBC corrected for nucl RBC Auto (Bld) [#/Vol] 6.9 E9/L Normal 4.0 - 11.0 E9/L [facility] HemeAutoSS HEMATOLOGYOrdered By: SYSTEM SYSTEM on 06-08-2022 Basophils/100 WBC (Bld) 0.6 % Normal 0.0 - 2.0 % [facility] HemeAutoSS Basophils/Leukocytes Auto (Bld) [Pure # fraction] 0.0 E9/L Normal 0.0 - 0.2 E9/L [facility] HemeAutoSS Eosinophils/100 WBC (Bld) 0.9 % Normal 0.0 - 8.0 % [facility] HemeAutoSS Eosinophils/Leukocyte s Auto (Bld) [Pure # fraction] 0.1 E9/L Normal 0.0 - 0.5 E9/L [facility] HemeAutoSS Lymphocytes/100 WBC (Bld) 26.3 % Normal 14.0 - 50.0 % [facility] HemeAutoSS Lymphocytes/Leukocyte s Auto (Bld) [Pure # fraction] 1.8 E9/L Normal 1.0 - 4.0 E9/L [facility] HemeAutoSS Monocytes/100 WBC (Bld) 4.3 % Normal 4.0 - 14.0 % [facility] HemeAutoSS Monocytes/Leukocytes Auto (Bld) [Pure # fraction] 0.3 E9/L Normal 0.2 - 1.0 E9/L [facility] HemeAutoSS Neutrophils/100 WBC (Bld) 67.9 % Normal 36.0 - 75.0 % [facility] HemeAutoSS Neutrophils/Leukocyte s Auto (Bld) [Pure # fraction] 4.7 E9/L Normal 2.0 - 7.5 E9/L [facility] HemeAutoSS CHEMISTRYOrdered By: SYSTEM SYSTEM on 05-24-2022 [place] [address] m[IU]/mL High 1 - 3 mIU/mL [facility] Remisol Progesterone [Mass/Vol] 13.20 ng/mL Invalid Interpretation Code [facility] Remisol PREG QUANT HCGon 05-17-2022 HCG QUANT 5303 mIU/mL Normal [facility] Comment on above: Performed By: #### P REGQNT #### [facility] [address] [address] [address] Richy Blankenship HCG RANGE SEE BELOW Normal [facility] Comment on above: Result Comment: 5-50 0-1 WEEK 40-300 1-2 WEEKS 100-1,000 2-3 WEEKS 500-6,000 3-4 WEEKS 5,000-200,000 1-2 MONTHS 10,000-100,000 2-3 MONTHS 3,000-50,000 2ND TRIMESTER 1,000-50,000 3RD TRIMESTER Performed By: #### P REGQNT #### [facility] [address] [address] [address] Richy Blankenship PREG QUANT HCGon 05-12-2022 HCG QUANT 822 mIU/mL Normal [facility] Comment on above: Performed By: #### P REGQNT #### [facility] [address] [address] [address] Richy Blankenship HCG RANGE SEE BELOW [facility] Comment on above: Result Comment: 50 0-1 WEEK 40-300 1-2 WEEKS 100-1,000 2-3 WEEKS 500-6,000 3-4 WEEKS 5,000-200,000 1-2 MONTHS 10,000-100,000 2-3 MONTHS 3,000-50,000 2ND TRIMESTER 1,000-50,000 3RD TRIMESTER Performed By: #### P REGQNT #### [facility] [address] [place] [address] Dr. Richy Blankenship PREG QUANT HCGon 05-08-2022 HCG QUANT 116 mIU/mL Normal [facility] Comment on above: Performed By: #### P REGQNT #### [facility] [address] [place] [address] Dr. Richy Blankenship HCG RANGE SEE BELOW Normal [facility] Comment on above: Result Comment: 50 0-1 WEEK 40-300 1-2 WEEKS 100-1,000 2-3 WEEKS 500-6,000 3-4 WEEKS 5,000-200,000 1-2 MONTHS 10,000-100,000 2-3 MONTHS 3,000-50,000 2ND TRIMESTER 1,000-50,000 3RD TRIMESTER Performed By: #### P REGQNT #### [facility] [address] [place] [address] Dr. Richy Blankenship PREG QUANT HCGon 05-06-2022 HCG QUANT 40 mIU/mL Normal [facility] Comment on above: Performed By: #### P REGQNT ####[facility] [address] [place], [place] [address]Kh. Richy Blankenship HCG RANGE SEE BELOW Normal [facility] Comment on above: Result Comment: 5-50 0-1 WEEK 40-300 1-2 WEEKS 100-1,000 2-3 WEEKS 500-6,000 3-4 WEEKS 5,000-200,000 1-2 MONTHS 10,000-100,000 2-3 MONTHS 3,000-50,000 2ND TRIMESTER 1,000-50,000 3RD TRIMESTER Performed By: #### P REGQNT ####[facility] [id number] [place], [place] [address]Pf. 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 Normal [facility] XR CHEST (2 VW)on 06-13-2018 XR [...] by:GENESIS Burksigned by:Luis Tijerina MD06/13/18inal result Normal [facility] Vital Signs Date Time Vital Sign Value Performing Clinician Deejay floyd 05-16-2023 14:38-0400 Blood Pressure Location Jose STACK [facility] 05-16-2023 14:38-0400 Diastolic blood pressure 80 mm[Hg] Jose NILL [facility] 05-16-2023 14:38-0400 Heart rate 72 /min Jose BETTYE [facility] 05-16-2023 14:38-0400 Respiratory rate 16 /min Jose BETTYE [facility] 05-16-2023 14:38-0400 Systolic blood pressure 120 mm[Hg] Jose BETTYE [facility] 10-28-2022 00:00-0500 Respiratory rate 16 /min MD Zachary Boyd Work Phone: [facility] 10-27-2022 23:52-0500 Body temperature 97.7 [degF] MD Zachary Boyd Work Phone: [facility] 10-27-2022 23:52-0500 Diastolic blood pressure 74 mm[Hg] MD Zachary oByd Work Phone: [facility] 10-27-2022 23:52-0500 Heart rate 100 /min MD Zachary Boyd Work Phone: [facility] 10-27-2022 23:52-0500 Systolic blood pressure 124 mm[Hg] MD Zachary Boyd Work Phone: [facility] 10-27-2022 23:48-0500 Body height 165.1 cm MD Zachary Boyd Work Phone: [facility] 10-27-2022 23:48-0500 Body weight 71.21 kg MD Zachary Boyd Work Phone: [facility] Encounters Encounter Date Encounter Type Care Provider Facility Start: 04-03-2024 End: 04-03-2024 Lab Drop off Kamala Crisostomo [facility] Start: 04-03-2024 End: 04-04-2024 ambulatory Kamala Crisostomo Facility:[facility] Start: 05-16-2023 End: 05-17-2023 ambulatory Zachary Boyd Facility: [facility] Start: 05-16-2023 End: 05-16-2023 Patient encounter procedure Jose STACK [facility] Nill[facility]aid [facility] Start: 04-14-2023 ambulatory Ojse R BETTYE Facility : [facility] Start: 04-04-2023 End: 04-05-[address] MADDIE TREJO Facility:[facility] Start: 04-01-2023 End: 04-02-2023 ambulatory VENITA TREVIÑO Facility:[facility] Start: 11-24-2022 End: 11-24-2022 Patient encounter procedure Danis Garcia [facility] Start: 11-02-2022 End: 11-02-2022 Patient encounter procedure Danis Garcia [facility] Start: 10-28-2022 End: 10-28-2022 ambulatory Zachary Boyd Facility:[facility] Start: 10-27-2022 End: 10-28-2022 ambulatory MD Zachary Boyd Work Phone: [facility] Work Phone: Start: 10-27-2022 End: 10-28-2022 Patient encounter procedure MD Zachary Boyd Work Phone: [facility] Start: 06-08-2022 End: 06-08-2022 Lab Drop off Danis Garcia [facility] Start: 06-08-2022 End: 06-08-2022 Patient encounter procedure Danis Garcia [facility] Start: 05-24-2022 End: 05-24-2022 Patient encounter procedure Danis Garcia [facility] Start: 05-08-2022 End: 05-09-[address] DOCTOR RODRIGUEZ Facility:[facility] Start: 05-06-2022 End: 05-20-[address] ZACHARY BOYD . Facility:[facility] Start: 07-30-2018 End: 07-30-2018 Emergency department patient visit ZACHARY Isaac Patricia [facility] Start: 06-13-2018 End: 06-16-2018 Patient encounter [facility] Start: 02-08-2018 End: 02-09-2018 Ambulatory DEFAULT PHYSICIAN Facility:[facility] Procedures Date Procedure Procedure Detail Performing Clinician Start: 06-13-2018 Radiologic exam ches t 2 views [place] section Jose Horvath H/O: surgery History of rever isamar of tubal ligation Danis Garcia Ligation of fallopia n tube Jose STACK Open reversal of fem joel sterilization Jose STACK Plan of Treatment Date Care Activity Detail Author Start: 10-27-2022 Hospital admission [facility] Start: 10-27-2022 End: 10-28-2022 [facility] Patient Education Antepartum Dis charge Instructions ([facility]) [facility] Work Phone: Patient referral [facility] Work Phone: Immunizations Immunization Date Immunization Notes Care Provider Lloyd wellington 12-30-2022 tetanus toxoid, redu montez diphtheria toxoid, and acellular pertussis vaccine, adsorbed Jose STACK [facility] Comment on above: Reason for Medicatio n: Other (see comment) 10-17-2021 SARS-CoV-2 (COVID-19 ) mRNA-1273 vaccine Jose NILYuliet [facility] 10-03-2021 tetanus toxoid, redu montez diphtheria toxoid, and acellular pertussis vaccine, adsorbed MD Zachary Boyd Work Phone: [facility] Payers Date Payer Category Payer Self-pay [id number] 2018 Unknown [id number] 1987 Unknown [id number] 2.16.84 [id number] 1987 Unknown [id number] 2.16.84 [id number] 1987 Unknown [id number] 2.16.84 [id number] 1987 Unknown [id number] 2.16.84 [id number] 1987 Unknown [id number] 2.16.8 [id number] 1987 Unknown [id number] 2.16.8 [id number] 1987 Unknown [id number] 2.16.8 [id number] 1987 Unknown [id number] 2.16.8 [id number] 1957 Medicaid [id number] 1957 Medicaid [id number] Medicaid [place] [employer] [id number] 501 [id number] Unknown Unknown [id number] 2.16.8 [id number] Social History Date Type Detail Facility Tobacco smoking status No Smokin g Status Entered [facility] Sex Assigned At Female [facility] Start: 10-03-2021 [facility] Start: 1985 Sex Assigned At Female F [facility] Tobacco smoking status No Smokin g Status Entered [facility] Start: 05-16-2023 Tobacco smoking status Ex-smoker (fi nding) [facility] Tobacco smoking status Smokeless tobacco user within last 30 days [facility] Functional Status Date Assessment Result Facility 05-16-2023 Functional Status N/A [facility] Evaluation + Plan note 04-03-2024 Note Date & Type Note Facility 04-03-2024 Evaluation + Plan note Diagnostic Tests PendingSCP [id number]/03/24 [facility] Clinical Note 05-22-2023 Note Date & Type Note Facility [...] Tobacco Use:. Smoke (more content not included)... [facility] Comment on above: Result Comment: Elec tronically Signed By: BETTYE MATA, Jose Oden\Date and Time Signed: 05/22/23 12:33 EDT Evaluation + Plan note 11-24-2022 Note Date & Type Note Facility 11-24-2022 Evaluation + Plan note Diagnostic Tests PendingPath. Review 11/24/22 [facility] Evaluation + Plan note 11-02-2022 Note Date & Type Note Facility 11-02-2022 Evaluation + Plan note Diagnostic Tests PendingRPR with Conf Rfx 11/02/22 [facility] Evaluation + Plan note 06-08-2022 Note Date & Type Note Facility 06-08-2022 Evaluation + Plan note Diagnostic Tests PendingRPR with Conf Rfx 06/08/22HIV Screen 4th Generation wRfx 06/08/22Rubella Antibody IgG 06/08/22Urine Culture 06/08/22Hepatitis B Surface Antigen 06/08/22HCV Antibody RFX to Quant PCR 06/08/22 [facility] Evaluation + Plan note 06-08-2022 Note Date & Type Note Facility 06-08-2022 Evaluation + Plan note Diagnostic Tests PendingUrine Culture 06/08/22PAP [id number] IG Apt HPV,rfx 16/18,45 06/08/22 [facility] Evaluation + Plan note Note Date & Type Note Facility Evaluation + Plan note No data available for this section [facility] Evaluation note Note Date & Type Note Facility Evaluation note No assessment information availa [facility] Work Phone: Hospital Discharge instructions Note Date & Type Note Facility Hospital Discharge instructions No data available for this section [facility] Progress note Note Date & Type Note Facility Progress note No data available for this section [facility] Summary Purpose Family History No Family History Records FoundNo Family History Records FoundNo Family History Records FoundNo Family History Records Found No data available for this section No Family History Records FoundNo Family History Records Found Advance Directives No Advanced Directives Records Found Advance Directive Response Recorded Date/ Time Advance Directives No November 23, 2017 8:56am Chief Complaint and Reason for Visit Chief Complaint IUP (Intrauterine Pr egnancy) Additional Source Comments INFORMATION SOURCE (unrecogn ized section and content) DATE CREATED AUTHOR 05/11/[address] [facility] DATE CREATED AUTHOR AUTHOR'S ORGANIZ ATION 08/10/2018 [facility] DATE CREATED AUTHOR AUTHOR'S ORGANIZ ATION 11/11/2022 [facility] DATE CREATED AUTHOR AUTHOR'S ORGANIZ ATION 04/05/2023 [facility] [place] [facility] DATE CREATED AUTHOR AUTHOR'S ORGANIZ ATION 04/06/2024 [facility] DATE CREATED AUTHOR AUTHOR'S ORGANIZ ATION 04/11/2024 [facility] Care Teams (unrecognized sec tion and content) Personnel Name: Zachary Boyd MD Address: Address: [address] [place] [id number] Team Status: Inactive Member Role Status Dates [...] BE BASED ON THE PRIMARY CLINICAL RECORDS. [facility]. provides no warranty or guarantee of the accuracy or completeness of information in this document.
== END 2024-06-05 09:55 | disposition home or self-care (01) ==
LOC: MAMMO 09:54
PROVIDERS: PCP Family Medicine
DX: N63.0 Unspecified lump in unspecified breast (principal); Z80.8 Family history of malignant neoplasm of other organs or systems
CPT/HCPCS: 76642; 77066; G0279